=== PATIENT | female | born 1995 | race Caucasian/White ===

== ENCOUNTER 2020-04-15 07:20 | Outpatient (CLI) | payer OTHER, SELFPAY ==
[2020-04-15 08:25] LABS: Beta HCG Quantitative < 2.39 mIU/ML
[2020-04-19 05:31] LABS: Thyroglobulin 5.8 ng/mL (2.8-40.9); Thyroglobulin Antibodies <1 IU/mL (<=1)
== END 2020-04-15 07:21 | disposition home or self-care (01) ==
PROVIDERS: Visit Provider Radiology Radiation Oncology
DX: C73 Malignant neoplasm of thyroid gland (principal)
CPT/HCPCS: 36415; 84432; 84443; 84702; 86800

== ENCOUNTER 2020-04-25 10:02 | Outpatient (CLI) | payer OTHER, SELFPAY ==
[2020-04-25 11:43] LABS: Beta HCG Quantitative < 2.39 mIU/ML
[2020-04-28 03:41] LABS: Thyroglobulin 16.3 ng/mL (2.8-40.9); Thyroglobulin Antibodies <1 IU/mL (<=1)
== END 2020-04-25 10:03 | disposition home or self-care (01) ==
PROVIDERS: Visit Provider Radiology Radiation Oncology
DX: C73 Malignant neoplasm of thyroid gland (principal)
CPT/HCPCS: 36415; 84432; 84443; 84702; 86800

== ENCOUNTER 2021-08-03 14:53 | Outpatient (CLI) | payer BC, SELFPAY ==
--- NOTE | ~2021-08-03 | US_ITS ---
EXAMINATION: US thyroid EXAM DATE: 08/03/2021 15:21 INDICATION: Postsurgical Hypothyroidism TECHNIQUE: Multiple grayscale and Doppler images of the thyroidectomy bed were obtained (by a technol ogist who performed the scan) and subsequently reviewed. Individual nodules and recommendations may be reported in accordance with TI-RADS system as designated by the 2017 ACR White Paper TI-RADS commi ttee. There is no prior study for comparison. FINDINGS: The thyroidectomy bed is unremarkable, no definite focal residual tissue is identified. No regional l ymphadenopathy. IMPRESSION: Unremarkable thyroidectomy bed. Reviewed, dictated and finalized at location G. ER SCHEDULER
--- NOTE | ~2021-08-03 | XR_ITS ---
XR chest 2V DATE: 08/03/2021 15:18 INDICATION: Post surgical hypothyroidism. Malignant neoplasm of thyroid gland. TECHNIQUE: PA and lateral views COMPARISON: None FINDINGS: Pectus excavatum. Normal heart size. No hilar or mediastinal enlargement. The lungs are clear of infiltrate or consolid ation. No pleural effusion or pulmonary vascular congestion or pneumothorax. Postoperative change, left cervical area. IMPRESSION: No active cardiac pulmonary disease Pectus excavatum Postoperative changes, left cervical area Reviewed, dictated and finalized at location B. IT CHARGE AUTHORIZER
== END 2021-08-03 14:54 | disposition home or self-care (01) ==
LOC: ANHIMG 14:58
DX: E89.0 Postprocedural hypothyroidism (principal); C73 Malignant neoplasm of thyroid gland; Q67.6 Pectus excavatum; Z98.890 Other specified postprocedural states
CPT/HCPCS: 71046; 76536

== ENCOUNTER 2022-05-08 16:40 | Outpatient (CLI) | payer BC, SELFPAY ==
[2022-05-08 17:19] LABS: Basophils Absolute Auto 0.1 K/mm3 (0.0-0.1); Basophils Percent Auto 0.7 % (0.2-1.2); Eosinophils Absolute Auto 0.1 K/mm3 (0-0.3); Hematocrit 37.1 % (37.0-47.0); Hemoglobin 12.1 g/dL (12.0-15.0); Immature Granulocyte Absolute 0.03 K/mm3 (0.00-0.031); Immature Granulocyte Percent A 0.3 % (0-0.5); Lymphocytes Absolute Auto 2.67 K/mm3 (0.9-3.2); Lymphocytes Percent Auto 25.4 % (18.3-44.2); Mean Corpuscular HGB Conc 32.6 g/dl (32-36); Mean Corpuscular Hemoglobin 29.6 pg (26-34); Mean Corpuscular Volume 90.7 fl (80-100); Mean Platelet Volume 10.2 fl (7.4-10.4); Monocytes Absolute Auto 0.7 K/mm3 (0.1-0.6); Monocytes Percent Auto 6.8 % (2.6-8.5); Neutrophils Absolute Auto 6.9 K/mm3 (1.3-6.7); Neutrophils Percent Auto 65.8 % (45.5-73.1); Platelet Count Result 260 k/mm3 (150-375); Red Blood Count 4.09 M/mm3 (4.2-5.4); Red Cell Distribution Width 12.4 % (11.5-14.5); White Blood Count 10.5 K/mm3 (4.5-10.0)
[2022-05-08 18:02] LABS: Thyroid Stimulating Hormone 0.362 uIU/mL (0.465-4.680)
[2022-05-08 18:35] LABS: Hepatitis B Surface Antigen Negative (Negative); Rubella IgG Antibody 24.5 IU/ML
[2022-05-09 06:37] LABS: Rapid Plasma Reagin Non-Reactive (NonReactive)
[2022-05-13 17:44] LABS: Varicella IgG Antibody <135.00 Index (>=165.00)
[2022-05-14 08:27] LABS: CMV IgG Antibody <0.60 U/mL (<0.60)
== END 2022-05-08 16:41 | disposition home or self-care (01) ==
LOC: ANHLAB 16:42
PROVIDERS: Visit Provider Student in an Organized Health Care Education/Training Program
DX: N91.2 Amenorrhea, unspecified (principal); E03.9 Hypothyroidism, unspecified
CPT/HCPCS: 36415; 84443; 84702; 85025; 86592; 86644; 86762; 86787; 86850; 86900; 86901; 87086; 87340

== ENCOUNTER 2022-07-27 08:00 | Outpatient (RCR) | payer BC, SELFPAY ==
[2022-07-13 10:27] LABS: Free T4 Free Thyroxine 1.25 ng/mL (0.78-2.19)
[2022-07-27 10:08] LABS: Thyroid Stimulating Hormone 0.595 uIU/mL (0.465-4.680)
[2022-07-27 10:27] LABS: Free T4 Free Thyroxine 1.69 ng/mL (0.78-2.19)
== END 2022-10-11 23:59 | disposition home or self-care (01) ==
LOC: ANHLAB 08:00
DX: E89.0 Postprocedural hypothyroidism (principal)
CPT/HCPCS: 36415; 84439; 84443

== ENCOUNTER 2022-08-17 09:12 | Outpatient (CLI) | payer BC, SELFPAY ==
[2022-08-17 10:29] LABS: Thyroid Stimulating Hormone 0.139 uIU/mL (0.465-4.680)
== END 2022-08-17 09:13 | disposition home or self-care (01) ==
LOC: ANHLAB 09:14
DX: E89.0 Postprocedural hypothyroidism (principal)
CPT/HCPCS: 36415; 84443

== ENCOUNTER 2022-09-14 09:07 | Outpatient (CLI) | payer BC, SELFPAY ==
[2022-09-14 10:33] LABS: Thyroid Stimulating Hormone < 0.015 uIU/mL (0.465-4.680)
== END 2022-09-14 09:08 | disposition home or self-care (01) ==
LOC: ANHLAB 09:10
DX: E89.0 Postprocedural hypothyroidism (principal)
CPT/HCPCS: 36415; 84443

== ENCOUNTER 2022-09-26 10:06 | Outpatient (CLI) | payer BC, SELFPAY ==
[2022-09-26 11:50] LABS: Hematocrit 38.3 % (37.0-47.0); Hemoglobin 12.8 g/dL (12.0-15.0); Mean Corpuscular HGB Conc 33.4 g/dl (32-36); Mean Corpuscular Hemoglobin 30.8 pg (26-34); Mean Corpuscular Volume 92.3 fl (80-100); Mean Platelet Volume 11.1 fl (7.4-10.4); Platelet Count Result 211 k/mm3 (150-375); Red Blood Count 4.15 M/mm3 (4.2-5.4); Red Cell Distribution Width 12.8 % (11.5-14.5); White Blood Count 11.2 K/mm3 (4.5-10.0)
[2022-09-26 12:02] LABS: Glucose 1 Hour PP 50gm Dose 109 mg/dL
[2022-09-26 12:45] LABS: HIV 1/2 Ab P24 Ag Result Negative (Negative)
== END 2022-09-26 10:07 | disposition home or self-care (01) ==
LOC: ANHLAB 10:07
PROVIDERS: Visit Provider Student in an Organized Health Care Education/Training Program
DX: Z34.90 Encounter for supervision of normal pregnancy, unspecified, unspecified trimester (principal)
CPT/HCPCS: 36415; 82947; 85027; 86703; G0432

== ENCOUNTER 2022-09-28 15:13 | Outpatient (CLI) | payer BC, SELFPAY | END 2022-09-28 15:14 | disposition home or self-care (01) | DX: O99.282 Endocrine, nutritional and metabolic diseases complicating pregnancy, second trimester (principal); E89.0 Postprocedural hypothyroidism | CPT/HCPCS: 36415; 84443 ==

== ENCOUNTER 2022-10-26 09:24 | Outpatient (CLI) | payer BC, SELFPAY ==
[2022-10-26 11:12] LABS: Thyroid Stimulating Hormone 0.421 uIU/mL (0.465-4.680)
== END 2022-10-26 09:25 | disposition home or self-care (01) ==
DX: E89.0 Postprocedural hypothyroidism (principal)
CPT/HCPCS: 36415; 84443

== ENCOUNTER 2022-11-16 09:22 | Outpatient (CLI) | payer BC, SELFPAY | END 2022-11-16 09:23 | disposition home or self-care (01) | LOC: ANHLAB 09:26 | DX: I10 Essential (primary) hypertension (principal) | CPT/HCPCS: 36415; 84443 ==

== ENCOUNTER 2022-11-27 17:11 | Outpatient (CLI) | payer BC, SELFPAY ==
[2022-11-27 17:31] VITALS: BP 148/85; PULSE 100
[2022-11-27 18:01] VITALS: BP 128/87; PULSE 95
[2022-11-27 18:16] VITALS: BP 123/74; PULSE 89
[2022-11-27 18:18] LABS: Basophils Absolute Auto 0.1 K/mm3 (0.0-0.1); Basophils Percent Auto 0.5 % (0.2-1.2); Eosinophils Absolute Auto 0.1 K/mm3 (0-0.3); Eosinophils Percent Auto 0.8 % (0-4.4); Hemoglobin 12.7 g/dL (12.0-15.0); Immature Granulocyte Absolute 0.06 K/mm3 (0.00-0.031); Immature Granulocyte Percent A 0.5 % (0-0.5); Lymphocytes Percent Auto 25.5 % (18.3-44.2); Mean Corpuscular HGB Conc 33.4 g/dl (32-36); Mean Corpuscular Hemoglobin 29.8 pg (26-34); Mean Corpuscular Volume 89.2 fl (80-100); Mean Platelet Volume 12.2 fl (7.4-10.4); Monocytes Absolute Auto 0.9 K/mm3 (0.1-0.6); Monocytes Percent Auto 7.3 % (2.6-8.5); Neutrophils Absolute Auto 7.9 K/mm3 (1.3-6.7); Neutrophils Percent Auto 65.4 % (45.5-73.1); Platelet Count Result 171 k/mm3 (150-375); Red Blood Count 4.26 M/mm3 (4.2-5.4); Red Cell Distribution Width 13.9 % (11.5-14.5); White Blood Count 12.1 K/mm3 (4.5-10.0)
[2022-11-27 18:33] LABS: Appearance Urine Clear (Clear); Bilirubin Urine Negative (Negative); Blood Urine Negative (Negative); Color Urine Yellow (Yellow); Glucose Urine UA Negative (Negative); Ketones Urine Negative (Negative); Leukocyte Esterase Ur Negative LEU/UL (NEGATIVE); Nitrate Urine Negative (Negative); Protein Urine Negative (Negative); Urobilinogen Urine 0.2 mg/dL (<2.0); pH Urine 6.5 (5.0-9.0)
[2022-11-27 18:34] LABS: Add Urine Microscopic? NO
[2022-11-27 18:42] LABS: Alanine Aminotransferase 19 U/L (6-35); Albumin Level 3.7 g/dL (3.5-5.1); Alkaline Phosphatase 187 U/L (38-126); Anion Gap 6 mmol/L (8-16); Aspartate Amino Transferase 32 U/L (14-36); Bilirubin,Total 0.2 mg/dL (0.2-1.3); Blood Urea Nitrogen 14 mg/dL (7-17); Calcium 8.4 mg/dL (8.4-10.2); Carbon Dioxide 21 mmol/L (22-30); Chloride 104 mmol/L (98-107); Estimated Glomerular Filt Rate > 60; Glucose 81 mg/dL (65-110); Potassium 3.9 mmol/L (3.4-5.0); Sodium 131 mmol/L (137-145); Uric Acid 6.4 mg/dL (2.5-7.5)
[2022-11-27 19:07] LABS: Creatinine Urine 49.3 mg/dL; Total Protein Urine Random 11 mg/dL; Ur Ttl Prot Creatinine Ratio 0.22 mg/mg (0-0.20)
--- NOTE | 2022-11-27 19:12 | PC.NURSE ---
Dr Bedolla call system notified at this time of patient and they are contacting Dr Bedolla.
--- NOTE | 2022-11-27 19:15 | PC.NURSE ---
Dr Bedolla updated on BP results, lab results, and FHTs. Orders to discharge patient home at this time.
== END 2022-11-27 19:17 | disposition home or self-care (01) ==
LOC: ANHOBOP 17:17 → ANHLDR 17:21
PROVIDERS: Visit Provider Student in an Organized Health Care Education/Training Program
DX: O13.9 Gestational [pregnancy-induced] hypertension without significant proteinuria, unspecified trimester (principal); Z3A.00 Weeks of gestation of pregnancy not specified
CPT/HCPCS: 36415; 59025; 80053; 81003; 82570; 84156; 84550; 85025; 87086; 99199

== ENCOUNTER 2022-12-03 19:15 | Inpatient (IN) | payer BC, SELFPAY ==
[2022-12-03] VITALS (14 sets, daily range): BP systolic 114–140; BP diastolic 67–108; PULSE 75–107; TEMP 36.5; BMI 30.6
[2022-12-03 18:36] LABS: Basophils Absolute Auto 0.1 K/mm3 (0.0-0.1); Basophils Percent Auto 0.5 % (0.2-1.2); Eosinophils Absolute Auto 0.1 K/mm3 (0-0.3); Eosinophils Percent Auto 1.2 % (0-4.4); Hematocrit 36.2 % (37.0-47.0); Hemoglobin 12.5 g/dL (12.0-15.0); Immature Granulocyte Absolute 0.07 K/mm3 (0.00-0.031); Immature Granulocyte Percent A 0.6 % (0-0.5); Lymphocytes Percent Auto 24.7 % (18.3-44.2); Mean Corpuscular HGB Conc 34.5 g/dl (32-36); Mean Corpuscular Hemoglobin 30.3 pg (26-34); Mean Corpuscular Volume 87.9 fl (80-100); Mean Platelet Volume 11.7 fl (7.4-10.4); Monocytes Absolute Auto 0.7 K/mm3 (0.1-0.6); Monocytes Percent Auto 6.5 % (2.6-8.5); Neutrophils Absolute Auto 7.3 K/mm3 (1.3-6.7); Neutrophils Percent Auto 66.5 % (45.5-73.1); Platelet Count Result 165 k/mm3 (150-375); Red Blood Count 4.12 M/mm3 (4.2-5.4); Red Cell Distribution Width 14.1 % (11.5-14.5)
[2022-12-03 18:37] LABS: Appearance Urine Clear (Clear); Bilirubin Urine Negative (Negative); Blood Urine Negative (Negative); Color Urine Yellow (Yellow); Glucose Urine UA Negative (Negative); Ketones Urine Negative (Negative); Leukocyte Esterase Ur Negative LEU/UL (NEGATIVE); Nitrate Urine Negative (Negative); Protein Urine Negative (Negative); Specific Grav Ur 1.007 (1.001-1.035); Urobilinogen Urine 0.2 mg/dL (<2.0); pH Urine 6.5 (5.0-9.0)
[2022-12-03 18:43] LABS: Add Urine Microscopic? NO
[2022-12-03 18:46] LABS: Alanine Aminotransferase 20 U/L (6-35); Albumin Level 3.6 g/dL (3.5-5.1); Alkaline Phosphatase 190 U/L (38-126); Anion Gap 6 mmol/L (8-16); Aspartate Amino Transferase 33 U/L (14-36); Bilirubin,Total 0.2 mg/dL (0.2-1.3); Blood Urea Nitrogen 14 mg/dL (7-17); Calcium 8.8 mg/dL (8.4-10.2); Carbon Dioxide 19 mmol/L (22-30); Chloride 107 mmol/L (98-107); Estimated Glomerular Filt Rate > 60; Glucose 94 mg/dL (65-110); Potassium 3.8 mmol/L (3.4-5.0); Sodium 132 mmol/L (137-145); Uric Acid 6.7 mg/dL (2.5-7.5)
[2022-12-03 18:50] LABS: Creatinine Urine 29.6 mg/dL; Total Protein Urine Random 13 mg/dL; Ur Ttl Prot Creatinine Ratio 0.44 mg/mg (0-0.20)
--- NOTE | 2022-12-03 19:28 | PC.NURSE ---
Dr Hernández called via automobile service writer and informed of patient labs and BP results with reactive NST. Orders to admit patient for IOL with cervidil induction
--- NOTE | 2022-12-03 19:40 | LDADM ---
This patient, Yaneth Escoto, was admitted to Labor/Delivery/Recovery 103 on 12/03/22 at 19:15. Plans for labor, pain management and were discussed with patient. Patient/family oriented to hospital policies and general routines including ID bracelet, bed and alarms, visiting hours, pain management, procedures, bathroom and other care routines, personal items, smoking policy, room service/diet and guest tray routines, infant security routines, and visiting hours. Patient/Family are encouraged to report perceived risks to care and to ask questions if they do not understand what they are told or what they should do. See OBIX for further documentation.
[2022-12-03] MEDS: DINOPROSTONE 10 MG VAG INSERT VAGINAL (19:57)
[2022-12-04] VITALS (134 sets, daily range): BP systolic 74–205; BP diastolic 51–167; PULSE 61–230; RESP 18; TEMP 36.4–37; O2SAT 75–100
[2022-12-04] MEDS: LACTATED RINGERS 1,000 ML 999 ML IV CONT ×4 (02:25→11:17)
[2022-12-04] MEDS: fentaNYL CITRATE INJ (*CRX) 100 MCG/2 ML VIAL 50 MCG IV PUSH ×3 (03:02→05:36)
--- NOTE | 2022-12-04 05:45 | WPDANESEPPF ---
Anes - Initial Pre Proc Eval Procedure: Labor Epidural Date/Time: 12/04/22 05:45 Surgeon: Jaime Marroquin MD Pre Op Diagnosis: Labor pain Pre Op Diagnosis: PIH Work up Patient Data Age: 27 Gender: F Height: 1.57 m Weight: 75.9 kg Last Vital Signs Temp 36.4 C L 12/04/22 02:02 Pulse 67 12/04/22 05:00 BP 116/56 L 12/04/22 05:00 O2 Del Method Room Air 12/03/22 19:39 Allergies Allergy/AdvReac Type Severity Reaction Status Date / Time No Known Allergies Allergy Verified 12/03/22 16:41 Home Medications Medication Instructions Recorded Confirmed Type prenat.vits,tobias,nvh-wadz-hzili 1 tablet PO DAILY 07/06/22 12/03/22 History levothyroxine 125 mcg capsule 125 mcg PO DAILY 08/10/22 12/03/22 History Laboratory Tests 12/03/22 12/03/22 18:29 19:59 WBC 11.0 H K/mm3 (4.5-10.0) RBC 4.12 L M/mm3 (4.2-5.4) Hgb 12.5 g/dL (12.0-15.0) Hct 36.2 L % (37.0-47.0) MCV 87.9 fl (80-100) MCH 30.3 pg (26-34) MCHC 34.5 g/dl (32-36) RDW 14.1 % (11.5-14.5) Plt Count 165 k/mm3 (150-375) MPV 11.7 H fl (7.4-10.4) Immature Gran % (Auto) 0.6 H % (0-0.5) Neut % (Auto) 66.5 % (45.5-73.1) Lymph % (Auto) 24.7 % (18.3-44.2) [place] % (Auto) 6.5 % (2.6-8.5) Eos % (Auto) 1.2 % (0-4.4) Baso % (Auto) 0.5 % (0.2-1.2) Lymph # (Auto) 2.70 K/mm3 (0.9-3.2) [place] # (Auto) 0.7 H K/mm3 (0.1-0.6) Eos # (Auto) 0.1 K/mm3 (0-0.3) Baso # (Auto) 0.1 K/mm3 (0.0-0.1) Abs Immat Gran (auto) 0.07 H K/mm3 (0.00-0.031) Absolute Neuts (auto) 7.3 H K/mm3 (1.3-6.7) Absolute Nucleated RBC 0.0 K/mm3 (0.0-0.012) Nucleated RBC % 0.0 % (0.0-0.2) Sodium 132 L mmol/L (137-145) Potassium 3.8 mmol/L (3.4-5.0) Chloride 107 mmol/L (98-107) Carbon Dioxide 19 L mmol/L (22-30) Anion Gap 6 L mmol/L (8-16) BUN 14 mg/dL (7-17) Creatinine 0.80 mg/dL (0.7-1.0) Estim Creat Clear Calc Not Reportable Estimated GFR > 60 (59 - ) Glucose 94 mg/dL (65-110) Uric Acid 6.7 mg/dL (2.5-7.5) Calcium 8.8 mg/dL (8.4-10.2) Total Bilirubin 0.2 mg/dL (0.2-1.3) AST 33 U/L (14-36) ALT 20 U/L (6-35) Alkaline Phosphatase 190 H U/L (38-126) Total Protein 7.0 g/dL (6.3-8.2) Albumin 3.6 g/dL (3.5-5.1) Urine Color Yellow (Yellow) Urine Appearance Clear (Clear) Urine pH 6.5 (5.0-9.0) Ur Specific [place] 1.007 (1.001-1.035) Urine Protein Negative mg/dL (Negative) Urine Glucose (UA) Negative mg/dL (Negative) Urine Ketones Negative mg/dL (Negative) Ur Blood (Man) Negative (Negative) Urine Nitrate Negative (Negative) Urine Bilirubin Negative (Negative) Urine Urobilinogen 0.2 mg/dL (<2.0) Ur Leukocyte Esterase Negative HAIDER/UL (NEGATIVE) U Random Total Protein 13 mg/dL Urine Creatinine 29.6 mg/dL Protein/Creat Ratio 2 0.44 H mg/mg (0-0.20) RPR Pending Blood Type A Positive Antibody Screen Negative Patient hx anesthesia problems: none Family hx anesthesia problems: none Results Review: All pre-operative results and documents have been reviewed as part of the pre-operative evaluation. [facility] Past Medical History Medical History Thyroid cancer Surgical History Surgical History H/O thyroidectomy History of ankle surgery Family History Family History Other Breast cancer Factor 5 Leiden mutation, heterozygous Other Heart disease Social History Social History (Reviewed 11/16
[2022-12-04] MEDS: fentaNYL CITRATE INJ (*CRX) 100 MCG/2 ML VIAL IV PUSH (06:35)
[2022-12-04 07:31] LABS: Rapid Plasma Reagin Non-Reactive (NonReactive)
--- NOTE | 2022-12-04 07:34 | P.HPUP_ITS ---
History and Physical Update Update Date/Time: 12/04/22 07:34 27-year-old at 37 weeks 5 days who presents for induction of labor for preeclampsia. Patient's blood pressure had been elevated at the last 2 outpatient visits. Preeclampsia lab work revealed an elevated urine protein c reatinine ratio. also complicated by maternal hypothyroidism secondary to thyroidectomy from thyroid cancer. Patient's thyroid has been managed by Endocrinology. History and Physical has been reviewed, including an updated exam of the patient. There are NO changes in the patient's condition. Risks, benefits, and alternatives have been discussed and questions answered. Patient agrees to proceed with procedure. A/P: Admit to L&D Routine admission orders patient diagnosed with preeclampsia without severe features Mild range blood pressures on admission Will continue to monitor blood pressures. Will consider magnesium if severe range Will plan for induction of labor due to preeclampsia plan for Cervidil induction of labor Continuous external monitoring
--- NOTE | 2022-12-04 08:19 | PM.OBPNLAB ---
Pain Control Date/time seen: 12/04/22 08:19 Pain control: epidural Pelvic Exam Dilation (cm): 4 Effacement (%): 90 station: -1 Amniotic membrane status: Intact Contractions Monitor mode: External Contraction frequency: 2 Contraction pattern: Regular Status status: Category ll Assessment and Plan Assessment: induction ongoing Comments: AROM for clear fluid. Pt amy on her own, will augment as necessary
[2022-12-04] MEDS: SODIUM CHLORIDE 0.9% IV 300 ML 600 ML I-UTERINE (09:36)
[2022-12-04] MEDS: OXYTOCIN 30 UNITS/NS 500 ML 30 UNITS/500 ML BAG IV CONT (10:58)
--- NOTE | 2022-12-04 11:50 | PC.NURSE ---
Addendum entered by Abigail Ball RN 12/04/22 11:54: Encouraged mother to keep her baby [id number] if stable until the first . Reminded the parent that the weight can wait. Original Note: 0852 - Introductions were made, then consulted with patient to assess her plans for feeding her after in L&D room 103. Mother led the conversation with her?plans to feed?her infant and the?experience so far. Resources provided for inpatient and outpatient services with the [facility] bonding feeding handout. Mother voiced understanding of information and will call if there is a request for assistance.
--- NOTE | 2022-12-04 14:03 | PM.OBPRVD ---
OB - Delivery Note Procedure Procedure: Patient pushed for a spontaneous vaginal delivery. The fetus was delivered atraumatically and placed on the maternal abdomen. The cord was clamped and cut after 1 minute of life. The cord was double clamped and cut and a segment of cord was collected for cord gases. Cord blood was collected for blood type and Coomb's testing. The placenta delivered spontaneously and was noted to be intact. The perineum was inspected and there were no lacerations noted. The uterus was firm and good hemostasis was noted. The patient and fetus were stable in the delivery room. Events: Preeclampsia w/o severe features Induction method: Per Cervidil Protocol Delivery augmentation: Rupture of Membranes and Pitocin Delivery monitor: External FHT Route of delivery: Episiotomy description: None Laceration Description: None Specimen: No Quantitative Blood Loss (ml): 150 Disposition: Floor () Complications: No immediate complications Baby Date of : 12/04/22 Time of : 13:44 Weeks of gestation at delivery: 37 Infant gender: Male presentation: vertex position: Right Occiput Anterior Placenta delivery description: Spontaneous Cord Vessel Description: 3 Vessels and Nuchal Cord score one minute: 8 score five minutes: 9 AMG Delivery Billing Delivery Delivery: Delivery Charge
[2022-12-04] MEDS: OXYTOCIN 30 UNITS/NS 500 ML 30 UNITS/500 ML BAG 125 UNITS IV CONT (14:21)
[2022-12-04] MEDS: BENZOCAINE 20% AER SPR (*SP) 56 GM CAN 1 SPRAY TOPICAL (15:30)
[2022-12-04] MEDS: WITCH HAZEL 40 PADS 1 PAD TOPICAL (15:31)
[2022-12-05 04:00] VITALS: BP 119/70; PULSE 72; RESP 18; TEMP 36.4; O2SAT 98
[2022-12-05] MEDS: IBUPROFEN 600 MG TABLET PO ×2 (04:04→12:33)
[2022-12-05 04:45] LABS: Hematocrit 34.9 % (37.0-47.0); Hemoglobin 11.5 g/dL (12.0-15.0)
--- NOTE | 2022-12-05 08:10 | PM.OBPNVD ---
OB - PN: Subj Subjective Date/time seen: 12/05/22 08:10 Patient comments: no complaints, pain well controlled and tolerating diet [place] feeding status: exclusively breast feeding Narrative: patient doing well this AM. No complaints. Pain is well controlled. She reports minimal bleeding. She is ambulating and voiding without difficulty. She is tolerating PO. She denies N/V, fever, chills. OB - PN: Obj Data Labs 12/05/22 04:00 12/03/22 18:29 Labs: Laboratory Results - last 24 hr 12/05/22 04:00 Hgb 11.5 L Hct 34.9 L OB - PN A/P Plan day: 1 Plan: routine care Comments: patient doing well H/H stable pt desires infant circumcision. Risks, benefits, alternatives discussed. Maternal consent obtained. continue routine care Time Spent With Patient Time: Total time spent is greater than 50% in coordination of care (as documented) at patient's floor/unit and/or counseling patient: Time with patient: less than 15 minutes Review of Systems Review of Systems: All systems reviewed & are unremarkable except as noted in HPI and below Exam Const: General: comfortable and no acute distress Resp: Effort & Inspection: normal respiratory effort Cardio: Rate: regular rate GI: GI Palp: Yes Soft to palpation and No Tenderness to palpation present (GI) Auscultation: normal bowel sounds Other: fundus firm and below umbilicus. Psych: Affect: normal affect
[2022-12-05 08:55] VITALS: BP 117/83; PULSE 81; RESP 18; TEMP 36.7; O2SAT 97
--- NOTE | 2022-12-05 10:50 | WPDANLDPN2 ---
Anes-Prog Note L&D Date/Time: 12/05/22 10:50 Comfortable throughout: labor and delivery Neuraxial method: epidural Epidural/Spinal procedure site: clean & non-tender Neuro status: Neuro function grossly intact. Cardiovascular status: normal Respiratory status: normal Airway patency: baseline Mental status: baseline Post-Op hydration status: normal Vital Signs: Last Vital Signs Temp 36.7 C 12/05/22 08:55 Pulse 81 12/05/22 08:55 Resp 18 12/05/22 08:55 BP 117/83 12/05/22 08:55 Pulse Ox 97 12/05/22 08:55 O2 Del Method Room Air 12/05/22 04:00 Pain score (VAS): 06/26 I/O: Intake & Output 12/04/22 12/05/22 12/05/22 23:59 07:59 15:59 Intake Total 1000 Output Total 148 2300 Balance -148 -1300 Post-procedural complaints: none Patient feedback: Patient satisfied with anesthetic care.
[2022-12-05] MEDS: LEVOTHYROXINE SODIUM 125 MCG TABLET PO (11:32)
[2022-12-05 12:15] VITALS: BP 118/69; PULSE 68; RESP 16; TEMP 37.3; O2SAT 99
[2022-12-05] MEDS: MULTIVIT/MIN/PREN/FOL AC/IRON TABLET 1 TAB PO (12:33)
--- NOTE | 2022-12-05 13:04 | PM.OBDSVD ---
DS: Admitting Diagnosis Discharge Date 12/06/22 Admitting Diagnosis intrauterine at term Preeclampsia without severe features DS: Discharge Diagnosis Discharge Diagnosis (1) Supervision of high risk , unspecified, third trimester: Code(s): O09.93 - Supervision of high risk , unspecified, third trimester Status: Acute (2) Preeclampsia: Code(s): O14.90 - Unspecified pre-eclampsia, unspecified trimester Status: Acute OB - DS: Summary OB Procedures : None OB Procedures Intrapartum: Spontaneous Vag Delivery OB Procedures: : None Peripartum Data Infant Delivery Method: Natural Vaginal Laceration Description: None complications: none Status at Discharge Functional status at discharge: independent ambulation Overall status at discharge: patient is back to baseline Time Spent with Patient Time attestation: Total time spent providing and/or coordinating discharge services: Time spent: Less than 30 minutes Exam Const: General: comfortable and no acute distress Resp: Effort & Inspection: normal respiratory effort Auscultation: clear to auscultation bilaterally Cardio: Rate: regular rate GI: GI Palp: Yes Soft to palpation Auscultation: normal bowel sounds Other: Fundus firm below umbilicus Psych: Appearance: grossly normal Mental Status: mental status grossly normal Affect: normal affect DS: Data Data Completed and Pending Pending studies at discharge: Pending at discharge 12/04/22 14:28 Surgical [PTH] Routine Labs on day of discharge: Labs from last 24 hours 12/05/22 04:00 Hgb 11.5 L Hct 34.9 L Discharge Plan Discharge Attending physician on discharge: Jaime Marroquin Discharging Clinician: Jaime Marroquin Patient Disposition: Home, Self-Care Activity: as tolerated and pelvic rest Diet: regular Discharge Instructions: Education: Mom and Baby Guide Given to: Mother Follow-Up: Call your delivering provider's office for an appointment to be seen in: 1 Weeks Mom and baby [facility] the follow-up appointment. Appointment Date/Time: December 07, 2022 at 11:00 am What to expect at your follow-up visit: Blood Pressure Check Physical Assessment Call [phone] if you are unable to keep your appointment time. BREAST CARE: * Wear a snug supportive bra. * For engorgement discomfort: Breast Feeding: * Apply warm moist washcloths * Express milk as needed to relieve engorgement * Wear loose clothing * For sore nipples: * Identify correct latch-on * Apply warm moist washcloths before and after nursing * Air dry nipples after nursing * May apply Lansinoh cream to nipples EPISIOTOMY/PERINEAL CARE: * Until bleeding stops, use your carlos alberto bottle after urinating * Change your pad frequently throughout the day * You may take sitz baths several times a day (fill your bathtub with warm water and soak for 20 minutes.) Do NOT bathe in the water * No tub baths until seen by your physician - You may shower ACTIVITY: * Rest as much as possible. * Do not exercise or lift anything heavier than your baby (such as laundry or other children.) * Avoid stairs or driving as much as possible. * Do not put anything into the vagina. No douching, tampons, or sexual activity until seen by physician. NOTIFY PHYSICIAN IF YOU HAVE ANY QUESTIONS OR IF ANY OF THE FOLLOWING SYMPTOMS OCCUR: * If your vaginal area becomes red, swollen, or more painful than what you have experienced in the hospital. * If your vaginal bleeding becomes foul smelling. * If your vaginal bleeding becomes more heavy than a period or if your bleeding changes from pink to bright red. However, you may pass an occasional walnut-sized clot once or twice for the first week . * If you experience a sharp, shooti
[2022-12-05 16:45] VITALS: BP 144/95; PULSE 88; RESP 16; TEMP 36.2; O2SAT 99
[2022-12-05 19:30] VITALS: BP 130/91; PULSE 99; RESP 16; TEMP 36.6
[2022-12-06 05:30] VITALS: BP 122/77; PULSE 63; RESP 16; TEMP 36.8
[2022-12-06 07:40] VITALS: BP 124/86; PULSE 77; RESP 18; TEMP 36.7; O2SAT 97
[2022-12-06] MEDS: IBUPROFEN 600 MG TABLET PO (08:30)
[2022-12-06] MEDS: WITCH HAZEL 40 PADS 1 PAD TOPICAL (08:30)
[2022-12-06] MEDS: LANOLIN (LANSINOH) 7.5 GM CREAM 1 APPLIC TOPICAL (08:30)
[2022-12-06] MEDS: BENZOCAINE 20% AER SPR (*SP) 56 GM CAN 1 SPRAY TOPICAL (08:30)
[2022-12-06] MEDS: DOCUSATE SODIUM 100 MG CAPSULE PO (08:30)
--- NOTE | 2022-12-06 10:44 | PC.NURSE ---
[id number] Introductions were made and Primary RN is going over discharge information. Discussed flange fitting, comfort, and care with pumping. Mother is pumping without pain. Resources provided for additional assistance if needed for outpatient care. Mother voiced understanding of the information.
[2022-12-07 11:20] VITALS: BP 138/95; PULSE 79; RESP 18; TEMP 37.1; O2SAT 100
== END 2022-12-06 10:55 | disposition home or self-care (01) | DRG 807 ==
LOC: ANHOBOP 19:32 → ANHLDR 19:32 → ANHOB2 12-04 18:56
PROVIDERS: Admitting Provider Obstetrics & Gynecology; Visit Provider Student in an Organized Health Care Education/Training Program
DX: O14.94 Unspecified pre-eclampsia, complicating childbirth (principal); Z37.0 Single live birth; Z3A.37 37 weeks gestation of pregnancy; O69.81X0 Labor and delivery complicated by cord around neck, without compression, not applicable or unspecified
CPT/HCPCS: 36415; 59025; 80053; 81003; 82570; 84156; 84550; 85014; 85018; 85025; 86592; 86850; 86900; 86901; 87086; 88307; A9270; J2590; J2795; J3010; J7030; J7120

== ENCOUNTER 2023-01-15 09:56 | Outpatient (CLI) | payer BC, SELFPAY ==
[2023-01-15 11:17] LABS: Thyroid Stimulating Hormone < 0.015 uIU/mL (0.465-4.680)
[2023-01-15 11:31] LABS: Free T4 Free Thyroxine 2.51 ng/mL (0.78-2.19)
[2023-01-19 06:29] LABS: Thyroglobulin 1.6 ng/mL (2.8-40.9); Thyroglobulin Antibodies <1 IU/mL (<=1)
== END 2023-01-15 09:57 | disposition home or self-care (01) ==
DX: E89.0 Postprocedural hypothyroidism (principal); C73 Malignant neoplasm of thyroid gland
CPT/HCPCS: 36415; 84432; 84439; 84443; 86800

== ENCOUNTER 2023-03-20 10:12 | Outpatient (CLI) | payer BC, SELFPAY ==
[2023-03-20 11:37] LABS: Thyroid Stimulating Hormone 0.055 uIU/mL (0.465-4.680)
[2023-03-23 04:56] LABS: Thyroglobulin 0.7 ng/mL (2.8-40.9); Thyroglobulin Antibodies <1 IU/mL (<=1)
== END 2023-03-20 10:13 | disposition home or self-care (01) ==
DX: E89.0 Postprocedural hypothyroidism (principal)
CPT/HCPCS: 36415; 84432; 84443; 86800

== ENCOUNTER → 2023-03-25 15:47 | Outpatient (CLI) | payer BC, SELFPAY ==
--- NOTE | ~2023-03-25 | US_ITS ---
EXAMINATION: US thyroid DATE: 03/25/2023 16:05 INDICATION: Postsurgical hypothyroidism. TECHNIQUE: Multiple ultrasound images of the thyroid were obtained. COMPARISON: None. FINDINGS: Thyroid gland surgically absent. No solid or cystic mass present in the thyroid bed. IMPRESSION: Status post thyroidectomy. Unremarkable thyroidectomy bed. Reviewed, dictated and finalized at location K.
== END ==
PROVIDERS: PCP Internal Medicine Endocrinology, Diabetes & Metabolism
DX: C73 Malignant neoplasm of thyroid gland (principal); E89.0 Postprocedural hypothyroidism
CPT/HCPCS: 76536

== ENCOUNTER 2024-02-28 08:03 | Outpatient (CLI) | payer BC, OTHER, SELFPAY ==
[2024-02-28 10:03] LABS: Free T4 Free Thyroxine 1.07 ng/mL (0.78-2.19)
== END 2024-02-28 08:04 | disposition home or self-care (01) ==
LOC: ANHLAB 08:09
PROVIDERS: PCP Internal Medicine Endocrinology, Diabetes & Metabolism; Visit Provider Internal Medicine Endocrinology, Diabetes & Metabolism
DX: E89.0 Postprocedural hypothyroidism (principal); C73 Malignant neoplasm of thyroid gland
CPT/HCPCS: 36415; 84439; 84443

== ENCOUNTER 2024-03-11 12:10 | Outpatient (CLI) | payer OTHER, BC, SELFPAY ==
[2024-03-11 12:38] LABS: Basophils Absolute Auto 0.1 K/mm3 (0.0-0.1); Basophils Percent Auto 0.6 % (0.2-1.2); Eosinophils Absolute Auto 0.1 K/mm3 (0-0.3); Eosinophils Percent Auto 0.6 % (0-4.4); Hematocrit 36.6 % (37.0-47.0); Hemoglobin 12.2 g/dL (12.0-15.0); Immature Granulocyte Absolute 0.02 K/mm3 (0.00-0.031); Immature Granulocyte Percent A 0.2 % (0-0.5); Lymphocytes Absolute Auto 2.76 K/mm3 (0.9-3.2); Lymphocytes Percent Auto 32.5 % (18.3-44.2); Mean Corpuscular HGB Conc 33.3 g/dl (32-36); Mean Corpuscular Hemoglobin 29.8 pg (26-34); Mean Corpuscular Volume 89.5 fl (80-100); Mean Platelet Volume 9.7 fl (7.4-10.4); Monocytes Absolute Auto 0.5 K/mm3 (0.1-0.6); Monocytes Percent Auto 6.4 % (2.6-8.5); Neutrophils Absolute Auto 5.1 K/mm3 (1.3-6.7); Neutrophils Percent Auto 59.7 % (45.5-73.1); Platelet Count Result 211 k/mm3 (150-375); Red Blood Count 4.09 M/mm3 (4.2-5.4); Red Cell Distribution Width 13.4 % (11.5-14.5); White Blood Count 8.5 K/mm3 (4.5-10.0)
[2024-03-11 13:28] LABS: HIV 1/2 Ab P24 Ag Result Negative (Negative)
[2024-03-11 13:48] LABS: Hepatitis B Surface Antigen Negative (Negative); Rubella IgG Antibody 23.2 IU/ML
[2024-03-11 18:22] LABS: Rapid Plasma Reagin Non-Reactive (NonReactive)
[2024-03-17 14:38] LABS: Varicella IgG Antibody <1.00 S/CO
== END 2024-03-11 12:11 | disposition home or self-care (01) ==
LOC: ANHLAB 12:13
PROVIDERS: PCP Internal Medicine Endocrinology, Diabetes & Metabolism; Visit Provider Student in an Organized Health Care Education/Training Program
DX: N94.89 Other specified conditions associated with female genital organs and menstrual cycle (principal)
CPT/HCPCS: 36415; 84702; 85025; 86592; 86644; 86703; 86747; 86762; 86787; 86850; 86900; 86901; 87086; 87340; G0432

== ENCOUNTER 2024-04-03 00:37 | Day surgery (SDC) | payer OTHER, BC, SELFPAY ==
[2024-04-02 10:57] VITALS: BMI 24.5
--- NOTE | 2024-04-02 11:03 | PC.NURSE ---
Report to the Outpatient Waiting Room, entrance under the green pavilion located off [facility], at time _1100am on date __04/03/24 . Planned Procedure Time: __13:00pm .? Time changes happen often and if your time is changed the preop area will call you the afternoon before. - You and your visitor will be asked to self-screen and do not enter if you have any COVID symptoms. Please call surgeon if you need to reschedule. - A mask is optional within the hospital at this time. Patients may have clear liquids (water, carbonated beverages, clear teas, apple juice) until 3 hours prior to surgery with a maximum of 20 ounces. - No food from midnight until time of surgery and no smoking (1000am) Take only the following medications with a SIP of water on the morning of surgery: __Levothyroxine DO NOT STOP ANY OF YOUR OTHER PRESCRIPTION MEDICATIONS PRIOR TO SURGERY EXCEPT THE FOLLOWING Medications to discontinue per physician Vitamins Date to take last dose 04/02/24 Please no make-up, nail dominican, hairspray, perfume, deodorant, or body powder the day of surgery.? No jewelry (including any body piercings) or valuables the day of surgery, leave them at home.? Please take a shower or bath the night before, or the morning of, surgery with an antibacterial soap.? Wear comfortable, loose fitting clothing.? - Jewelry must be removed prior to entering the operating room.? Rings and piercings that are not removed may be cut off. - The hospital will not accept responsibility for valuables.? - Please leave all valuables, including medications, at home the day of surgery. If you are going home after surgery, a licensed class a regional truck driver must drive you home.? - NO public transportation without another adult if you receive anesthesia. - We recommend that an adult stay with you for 24 hours following discharge. - We also recommend that you do not drive, make important decision, drink alcoholic beverages, or take any drugs that were not prescribed by your health care provider for at least 24 hours after your discharge time. Follow any additional instructions given to you from your surgeon. Telephone instructions given to ___patient and asked if any additional questions and then verbalized understanding. Patient advised to call surgeon office or pre surgery nurse liaison [phone] if any additional questions.
--- NOTE | 2024-04-03 07:49 | PM.IMHP ---
H&P: HPI History of Present Illness Date/Time: 04/03/24 07:49 Chief Complaint: missed Narrative: 28-year-old 011 who presents for suction D&C for management of missed . Patient had viability scan in the office with embryo measuring 8 weeks 6 days with no heart tones. Patient denies any vaginal bleeding or pain. Patient requested surgical management. Review of Systems Cardiovascular: Cardiovascular: Denies chest pain, Denies leg edema, Denies palpitations, Denies dyspnea and Denies dyspnea on exertion Respiratory: Respiratory: Denies cough, Denies dyspnea and Denies dyspnea on exertion Gastrointestinal: Gastrointestinal: Denies abdominal pain, Denies constipation, Denies diarrhea, Denies nausea and Denies vomiting Genitourinary: Genitourinary: Denies hematuria, Denies urinary frequency, Denies dysuria, Denies pelvic pain, Denies urinary incontinence and Denies vaginal discharge Neurologic: Reports system reviewed and no additional complaints, except as documented Psychiatric: Psychiatric: Reports no additional psychiatric complaints Endocrine: Endocrine: Denies palpitations PMFSH Past Medical History Medical History (Updated 04/03/24 @ 07:51 by Jaime Marroquin MD) Encounter for initial insertion of intrauterine contraceptive device Encounter for removal of intrauterine contraceptive device Suppression of menses Thyroid cancer Surgical History Surgical History H/O gynecological procedure Mirena IUD insertion 01/17/23 Mirena IUD removal 12/24/23 H/O thyroidectomy History of ankle surgery Family History Family History Other Breast cancer Factor 5 Leiden mutation, heterozygous Other Heart disease Social History Social History Smoking status: Never smoker Alcohol intake: current Alcohol use details: socially Substance use: never Substance use type: does not use Lack of Transportation: No Lack of Food: Never True Current Housing: I Have Housing Concerned About Future Housing: No Difficulty Paying Gas/Electric Bills: No Difficulty Paying for Meds: No Currently Unemployed: No Education: Associate Degree Difficulty w/ Childcare or Family Care: No Living arrangements: with family Additional living arrangements comments: Occupation/Education: occupation 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 Gender identity (if verbalized by the patient): Female Sexual Orientation (if Verbalized by the Patient): Straight or Heterosexual Spiritual care concerns: No Meds Home Medications and Allergies Home Medications Medication Instructions Recorded Confirmed Type prenat.vits,tobias,ufh-qwdz-jjmpt 1 tablet PO DAILY 07/06/22 04/02/24 History levothyroxine 125 mcg capsule 125 mcg PO DAILY 08/10/22 04/02/24 History Allergies Allergy/AdvReac Type Severity Reaction Status Date / Time No Known Allergies Allergy Verified 04/02/24 10:55 Exam Const: General: no acute distress Eyes: EOM: EOMs intact bilaterally Neck: Neck: supple Thyroid: thyroid normal Chest: Breast/axilla inspection: normal inspection of the breasts Breast/axilla palpation: normal palpation of the breasts, normal palpation of the axillae and no axillary lymphadenopathy Resp: Effort & Inspection: normal respiratory effort Auscultation: clear to auscultation bilaterally Cardio: Rate: regular rate Rhythm: regular rhythm GI: Inspection: non-distended GI Palp: Yes Soft to palpation, No Tenderness to palpation present (GI) and No Guarding due to palpation present (GI) Auscultation: normal bowel sounds : General: No bladder normal to palpation External Female Exam: normal external appearance Speculum Exam - Vagina: normal vaginal discharge and No vaginal bleeding Speculum Exam - C
[2024-04-03 11:30] VITALS: BP 114/70; PULSE 90; RESP 16; TEMP 36.9; O2SAT 100
--- NOTE | 2024-04-03 11:34 | WPDHPUPDATE1 ---
History and Physical Update Update Date/Time: 04/03/24 11:34 History and Physical has been reviewed, including an updated exam of the patient. There are NO changes in the patient's condition. Risks, benefits, and alternatives have been discussed and questions answered. Patient agrees to proceed with procedure.
[2024-04-03] MEDS: ACETAMINOPHEN 500 MG TABLET 1000 MG PO (11:48)
[2024-04-03] MEDS: LACTATED RINGERS 1,000 ML 30 ML IV CONT (11:49)
[2024-04-03 11:51] VITALS: BMI 25.2
--- NOTE | 2024-04-03 12:40 | P.PNAN_ITS ---
Anes - Initial Pre Proc Eval Procedure: Operation Date: 04/03/24 13:00 Proposed Procedures p Suction Dilatation and Curettage - Jaime Marroquin MD Date/Time: 04/03/24 12:40 Surgeon: Jaime Marroquin MD Pre Op Diagnosis: missed AB Patient Data Age: 28 Gender: F Height: 1.57 m Weight: 62.5 kg Allergies Allergy/AdvReac Type Severity Reaction Status Date / Time No Known Allergies Allergy Verified 04/02/24 10:55 Home Medications Medication Instructions Recorded Confirmed Type prenat.vits,tobias,cif-qpnu-hcsyw 1 tablet PO DAILY 07/06/22 04/02/24 History levothyroxine 125 mcg capsule 125 mcg PO DAILY 08/10/22 04/03/24 History Patient hx anesthesia problems: none Family hx anesthesia problems: none Results Review: All pre-operative results and documents have been reviewed as part of the pre- operative evaluation. [facility] Past Medical History Medical History (Updated 04/03/24 @ 07:51 by Jaime Marroquin MD) Encounter for initial insertion of intrauterine contraceptive device Encounter for removal of intrauterine contraceptive device Suppression of menses Thyroid cancer Surgical History Surgical History H/O gynecological procedure Mirena IUD insertion 01/17/23 Mirena IUD removal 12/24/23 H/O thyroidectomy History of ankle surgery Family History Family History Other Breast cancer Factor 5 Leiden mutation, heterozygous Other Heart disease Social History Social History Smoking status: Never smoker Alcohol intake: current Alcohol use details: socially Substance use: never Substance use type: does not use Lack of Transportation: No Lack of Food: Never True Current Housing: I Have Housing Concerned About Future Housing: No Difficulty Paying Gas/Electric Bills: No Difficulty Paying for Meds: No Currently Unemployed: No Education: Associate Degree Difficulty w/ Childcare or Family Care: No Living arrangements: with family Additional living arrangements comments: Occupation/Education: occupation 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 Gender identity (if verbalized by the patient): Female Sexual Orientation (if Verbalized by the Patient): Straight or Heterosexual Spiritual care concerns: No Anes - Eval Final PreProcedure Day of Procedure 04/03/24 12:40 Patient weight: normal Heart: regular rate and rhythm Lungs: clear to auscultation Airway: Mallampati scale class II Neurological: alert and oriented Last oral intake: >/= 8 hours ASA classification: II Emergent: no Anesthetic plan: proceed Anesthesia type and monitoring: general GIVS and standard monitoring Results Review: All pre-operative results and documents have been reviewed as part of the pre- operative evaluation. Informed Consent: The patient's anesthetic plan and its attendant risks and benefits were dis cussed with the patient/family/POA. Questions were solicited and answers provided to the satisfaction of the patient/family/POA.
[2024-04-03] MEDS: LIDOCAINE HCL 1% LOCAL INJ 10 ML VIAL INFILTRATE (12:44)
[2024-04-03] MEDS: DOXYCYCLINE 100 MG/NS 100 ML 100 MG/100 ML BAG IVPB (12:44)
--- NOTE | 2024-04-03 13:11 | W.PM.PROC2 ---
Procedure Note - Detailed Date of Procedure 04/03/24 Pre-op Diagnosis missed AB Post-op Diagnosis Same Procedure Performed Suction Dilation & curettage Surgeon Jaime Marroquin MD Anesthesia General Indications spontaneous missed on pelvic US Findings intrauterine products of conception Description of Procedure The patient was taken to the operating room after a missed had been noted on on transvaginal ultrasound. The risks, benefits and alternatives of the procedure were reviewed with the patient and informed consent was obtained. The patient was taken to the OR and anesthesia was noted to be adequate. The patient was placed in the dorsolithotomy position. Pelvic exam was performed with findings noted above. The patient was prepped and draped in the usual sterile fashion. Sterile speculum was placed in the vagina and the cervix was grasped with a tenaculum. The cervix was dilated further to allow for passage of a 8 mm suction curette. The 8 mm suction curette was gently advanced to the fundus, suction was activated, and the tip was rotated while being withdrawn to clear the uterus of products. This suction process was repeated 5 additional times due to the quantity of material in the uterus. The sharp curette was introduced and advanced to the fundus to remove any remaining products. The suction curette was reintroduced one final time to ensure all products had been removed. The entire procedure was performed under direct bedside US visualization. A good endometrial strip was noted. The tenaculum was removed. Good hemostasis was noted. Instrument, sponge, and sharp counts were correct. Patient tolerated the procedure well and was taken to the recovery room in stable condition. Estimated Blood Loss 50 Drains No Packing No Pathology Yes (products of conception) Complications No immediate complications Condition Stable Disposition PACU [facility] Billing Surgery - Charge Forward: Surgery Billing
[2024-04-03 13:19] VITALS: BP 96/53; PULSE 81; RESP 13; O2SAT 100
[2024-04-03 13:45] VITALS: BP 95/65; PULSE 86; RESP 13; O2SAT 100
[2024-04-03] MEDS: DOXYCYCLINE HYCLATE 100 MG TABLET PO (14:01)
== END 2024-04-03 14:08 | disposition home or self-care (01) ==
PROVIDERS: PCP Internal Medicine Endocrinology, Diabetes & Metabolism; Visit Provider Student in an Organized Health Care Education/Training Program
PROC: (CPT 59820; principal; 2024-04-03 13:00)
DX: O02.1 Missed abortion (principal); Z98.890 Other specified postprocedural states; Z85.850 Personal history of malignant neoplasm of thyroid; Z80.3 Family history of malignant neoplasm of breast; Z82.49 Family history of ischemic heart disease and other diseases of the circulatory system
CPT/HCPCS: 59820; 88305; A9270; J1100; J2003; J2250; J2405; J2704; J3010; J7120

== ENCOUNTER 2024-07-27 15:36 | Outpatient (CLI) | payer OTHER, BC, SELFPAY ==
--- OUTSIDE RECORDS SUMMARY | 2024-07-27 15:40 | XMS_ITS ---
Author Organization [facility] Address [address] [facility] [address] [place] [address] Care Team Providers Care Environmental Health And Safety Leader Name Role Phone MODESTO SHIELA Primary Care Provider Farhan Hare Unavailable [phone] REASON FOR VISIT Encounters Encounter Location Date Provider Diagnosis [facility] [address] [place] [address] 07/26/2024 Farhan Emery Plan Of Treatment No Information Progress Notes * Yaneth SPICER NDOB:[birth year] (28 yo F)Acc No.[id number]:07/26/2024 Patient: Sarita Yaneth GRACE :1995 A ge:28 Y S ex:Female Address:[address] [facility] [address] * * Date:
--- OUTSIDE RECORDS SUMMARY | 2024-07-27 15:40 | XMS_ITS | Patient Health Record ---
Author Organization [facility]esity Med Address [address] [facility] [address] [place] [address] Care Team Providers Care Pathology Laboratory Aides Teacher Name Role Phone CECILSHIELA TAYLOR Primary Care Provider Unavailab radha Farhan Emery Unavailable [phone] Allergies No Known Allergies Results Component Value Reference Range Notes TSH Reviewed date:03/02/2024 01:58:03 PM Interpretation:Normal Performing Lab: Notes/Report: Normal TSH 1.790 T4, FREE Reviewed date:03/02/2024 01:57:55 PM Interpretation:Normal Performing Lab: Notes/Report: Normal T4,Free(Direct) 1.07 Reason For Referral No Information Medications Medication SIG (Take, Route, Frequency, Duration) Notes Start Date End Date Status Levothyroxine Sodium 125 MCG 1 tablet in the morning on an empty stomach orally once a day Active Social History Tobacco Use: Social History Observation Description Date Details (start date - stop date) Never Smoker NA - NA Tobacco Control (Standard) Question Answer Notes Tobacco use: Nonsmoker Problems Problem Type SNOMED Code ICD Code Onset Dates Problem Status W/U Status Risk Notes Problem Malignant tumor of thyroid gland (126158528) Malignant neoplasm of thyroid gland (C73) Active confirmed Problem Postsurgical hypothyroidism (17538133) Postsurgical hypothyroidism (E89.0) Active confirmed Vital Signs Blood pressure diastolic 66 mm Hg 03/20/2024 Height 62 in 03/20/2024 Blood pressure systolic 112 mm Hg 03/20/2024 Weight 136.4 lbs 03/20/2024 BMI 24.95 kg/m2 03/20/2024 Encounters Encounter Location Date Provider Diagnosis [facility] [address] [place] [address] 03/20/2024 Farhan Emery Postsurgical hypothyroidism E89.0 and Malignant neoplasm of thyroid gland C73 [place] [address] [place] [address] 07/26/2024 [place] [address] [place] [address] 02/26/2024 [place] [address] [place] [address] 03/02/2024 Farhan Emery Postsurgical hypothyroidism E89.0 [place] [address] [place] [address] 04/13/2024 Farhan Emery Assessments Encounter Date Diagnosis (ICD Code) Assessment Notes Treatment Notes Treatment Clinical Notes Section Notes 03/02/2024 Postsurgical hypothyroidism (ICD-10 - E89.0) 03/20/2024 Postsurgical hypothyroidism (ICD-10 - E89.0) Old records reviewed THyroidectomy Jan 2018. Jan 2018: Start LT4 100 mcg WIll schedule BAKER Rx based on pathology. Plannng to do in [place]. 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, vascular invasion, pT1b, Classic Variant 04/2018 BAKER RX, Apr 2019, Apr 2020 with in [facility] May 2018: Thyroglobulin < 0.7, Ab wnl Jun 2019:Thyroglobuli n 0.2 unstimulated Mar 2020: Thyroglobulin 5.8 stimulated level (with high TSH) at [facility], [place], PT received third BAKER Rx TSH goal < 0.1 till Apr: Patient 12 weeks post , stopped breast feeding 6 weeks ago Mar: 9 weeks now Plan Of Treatment Pending Test Test Name Order Date TSH 03/20/2024 TSH 07/27/2024 TSH 10/26/2022 Thyroglobulin Quantitative and Antibody 03/20/2024 Thyroglobulin Quantitative and Antibody 05/21/2018 T4, FREE 03/20/2024 Insurance Providers Payer Name Payer Address Payer Phone Subscriber Number Group Number Insured Name Patient Relationship to Insured Coverage Start Date Coverage End Date [facility] [address] [place] [address] [id number] MERE BERGER Child - Insured does not have Financial Responsibility (includes legally adopted child) Medical (General) History Medical History History ICD Code Papillary Thyroid Cancer Jan 2018, S/p T otal THyroidectomy Thyroid Disease Surgical History Surgery Date(Month/Year) Thyroidectomy-Total 01/31/18 Dissection neck-central neck dissection 01/31/18 Excision Cyst-Thyroglossal Duct 01/31/18 Hospitalization History Reason Date(Month/Year) child 12/04/2022 Thyroidectomy-Total, Excision Cyst-Thyro glossal Duct 02/01
--- OUTSIDE RECORDS SUMMARY | 2024-07-27 15:41 | XMS_ITS ---
Author Organization [facility]esity Med Address [address] [facility] [address] [place] [address] Care Team Providers Care Hand Mexican Food Maker Name Role Phone MODESTOJOSSYSHIELA Primary Care Provider Farhan Hare Unavailable [phone] REASON FOR VISIT Miscarriage Encounters Encounter Location Date Provider Diagnosis [facility] [address] [place] [address] 04/13/2024 Farhan Emery Plan Of Treatment No Information Progress Notes * Yaneth SPICER NDOB:[birth year] (28 yo F)Acc No.[id number]:04/13/2024 Patient: Sarita GRACE Yaneth Louis :1995 A ge:28 Y S ex:Female Address:[address] [facility] [address] * true * Date: Generated for Printi ng/Faxing/eTransmitting on: 0 07/27/2024 03:40 PM 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
--- OUTSIDE RECORDS SUMMARY | 2024-07-27 15:41 | XMS_ITS ---
Author Organization [facility] Address [address] [facility] [address] [place] [address] Care Team Providers Care Auto Salvage Worker Name Role Phone CECILCLAUDIA SHIELA Primary Care Provider Farhan Hare Unavailable [phone] Allergies No Known Allergies REASON FOR VISIT HYpothyroidism Medications Medication SIG (Take, Route, Frequency, Duration) Notes Start Date End Date Status Levothyroxine Sodium 125 MCG 1 tablet in the morning on an empty stomach orally once a day Active Social History Tobacco Use: Social History Observation Description Date Details (start date - stop date) Never Smoker NA - NA Tobacco Control (Standard) Question Answer Notes Tobacco use: Nonsmoker Vital Signs Weight 136.4 lbs 03/20/2024 BMI 24.95 kg/m2 03/20/2024 Height 62 in 03/20/2024 Blood pressure systolic 112 mm Hg 03/20/20 24 Blood pressure diastolic 66 mm Hg 024 Encounters Encounter Location Date Provider Diagnosis [place] [address] [place] [address] 03/20/2024 Farhan Emery Postsurgical hypothyroidism E89.0 and Malignant neoplasm of thyroid gland C73 Assessments Encounter Date Diagnosis (ICD Code) Assessment Notes Treatment Notes Treatment Clinical Notes Section Notes 03/20/2024 Postsurgical hypothyroidism (ICD-10 - E89.0) Old records reviewed THyroidectomy Jan 2018. Jan 2018: Start LT4 100 mcg WIll schedule BAKER Rx based on pathology. Plannng to do in [place]. 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 May 2018: Thyroglobulin < 0.7, Ab wnl Jun 2019:Thyroglobuli n 0.2 unstimulated Mar 2020: Thyroglobulin 5.8 stimulated level (with high TSH) at [facility], So, PT received third BAKER Rx TSH goal < 0.1 till Apr: Patient 12 weeks post , stopped breast feeding 6 weeks ago Mar: 9 weeks now Plan Of Treatment Medication Medication Name Sig Start Date Stop Date Notes Levothyroxine Sodium 125 MCG 1 tablet in the morning on an empty stomach orally once a day Pending Test Test Name Order Date TSH 03/20/2024 Thyroglobulin Quantitative and Antibody 03/20/2024 T4, FREE 03/20/2024 Next Appt Details Follow Up: 1 Year, Reason: l abs in 3 weeks Progress Notes * Yaneth SPICER NDOB:[birth year] (28 yo F)Acc No.[id number]:03/20/2024 Patient: Yaneth DENNY Missy Provider: Munira Emery MD :1995 A ge:28 Y S ex:Female Date:03/20/2024 Address:[address] [place] [address] , [place] [id number] Pcp:SHIELA SALVADOR Subjective: * Chief Complaints: * H Ypothyroidism * HPI: I nterim History: Denies : Tests/Studies:. Denies : Consultations. Denies : Surgery. Denies : Hospitalizations. Denies : Emergency Department visits. Denies : Medication changes. Denies : History since last visit. Denies : Changes in PMH S margi Jul 2022. H ypothyroidism: c/o Duration A 2017. Patient had a thyroid nodule, biopsy showed Atypical Papillary thyroid cancer and so thyroidectomy was done.. c /o History P ostsurgical. Denies : Labs. Denies : Family history of thyrodi disease. Denies : Rx. Denies : Antibodies. Denies : Amiodarone, [place]. Denies : tiredness,sleepiness. Denies : weight gain. Denies : cold intolerance. Denies : hoarseness. Denies : neck swelling. Denies : aches, pains, muscle stiffness. Denies : depression. Denies : psychosis. Denies : constipation. Denies : menstrual irregularities. Denies : thyroid problems with . T hyroid cancer: c/o Thyroidectomy . c /o Ablation N ov 2017, Apr 2019, Apr 2020. c /o WHole Body Scan N ov 2017, Apr 2019 , Apr 2020. T hyroid Cancer Prognosis: c/o Age L ess than 40. c /o Histology P apillary Cancer, 1.7 cm. c /o Intrathyroidal invasion V ascular invasion present. c /o Thyroglobulin levels p T1b. Denies : Extrathyroidal invasion. Denies : Multicentricity. Denies : Lymph node metastasis. Tumor Size 1 .7 cm, classic variant. * ROS: R OS: As in HPI. All other systems negative (see attached history form in progress notes) y es. C ONSTITUTIONAL: Fever n o. C hills n o. N ight Sweats n o.?Weight Loss n o. W eight Gain n o. L oss of Appetite n o. F atigue n o. C ARDIOLOGY: Irregular Heart Beat n o. C hest Pain n o. S hortness of Breath n o. P alpitations n o. D izziness n o. L eg Edema n o.?Fatigue n o. E NDOCRINOLOGY: Excessive thirst n o. W eight Loss n o. W eight Gain n o. F atigue n o. C old Intolerance n o. P alpitations n o. ? E NT: Nose Bleed n o. S ore Throat n o. H earing Loss?no. D izziness n o. G ASTROENTEROLOGY: Nausea n o. V omiting n o. D iarrhea n o.?Appetite Change n o. M USCULOSKELETAL: Muscle Aches n o. J oint Pain n o. J oint Stiffness n o. J oint Swelling n o. B ack Pain n o. n o F racture. N EUROLOGY: Paralysis n o. T ingling/Numbness n o. S eizures n o. P SYCHOLOGY: Nervousness n o. D epression n o. A nxiety n o. R ESPIRATORY: Shortness of Breath n o. P ersistent Cough n o.?Chest Pain n o. * Medical History: * Surgical History: T hyroidectomy-Total 01/31/18Dissection neck-central neck dissection 01/31/18Excision Cyst-Thyroglossal Duct 01/31/18 * Hospitalization/Major Diagno stic Procedure: T hyroidectomy-Total, Excision Cyst-Thyroglossal Duct 02/01child 12/04/2022 * Family History: F ather: alive, high blood pressure, Hypercholesterolemia. M other: alive. P aternal Grand Mother: , cancer. 2 brother(s) - healthy. 1 son(s) - healthy. . * Social History: D ONOT USE this Use: N one A re you a: n onsmoker A Tobacco USe: T obacco Control (Standard) T obacco use: N onsmoker * Medications: T akingLevothyroxine Sodium 125 MCG Tablet 1 tablet in the morning on an empty stomach orally once a day Medication List reviewed and reconciled with the patientTaking Levothyroxine Sodium 125 MCG Tablet 1 tablet in the morning on an empty stomach orally once a day Medication List reviewed and reconciled with the patient * Allergies: N .K.D.A.no[Allergies Verified] Objective: * Vitals: I nhaled Oxygen Flow Rate: 99, Wt: 136.4 lbs, BMI:24.95Index, Ht: 62 in, BP:112/66mm Hg, HR: 77 /min. * P ast Orders: L ab:TSH (Order Date - 02/26/2024) (Collection Date & Time - 02/28/2024) Result: Normal Value Reference Range TSH 1.790 L ab:T4, FREE (Order Date - 02/26/2024) (Collection Date & Time - 02/28/2024) Result: Normal Value Reference Range T4,Free(Direct) 1.07 * Examination: G eneral Examination: General Appearance: W ell developed and well- nourished, NAD. Skin: N o rash or skin lesions. HEENT: N ormocephalic, atraumatic. Oral Cavity N ormal, moist mucus membranes. Neck, Thyroid : S upple, no thyromegaly, no lymphadenopathy, no JVD, no carotid bruit. Heart: R RR, normal S1S2, no murmur, rub, or gallop. Lungs: C lear to auscultation bilaterally, no wheezes, rhonchi, or rales. Abdomen: S oft, NT/ND, BS present, no guarding or rebound, no masses palpated, no hepatosplenomegaly. Extremities: N o clubbing, cyanosis, or edema, pulses 2+ bilaterally. Neurologic Exam: N on-focal exam, CN's II-XII grossly intact. * Physical Examination: Assessment: * Assessment: 1. P ostsurgical hypothyroidism - E89.0 (Primary) 2 . 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 May 2018: Thyroglobulin < 0.7, Ab wnl Jun 2019:Thyroglobulin 0.2 unstimulated Mar 2020: Thyroglobulin 5.8 stimulated level (with high TSH) at [facility], [place], PT received third BAKER Rx TSH goal < 0.1 till Apr: Patient 12 weeks post , stopped breast feeding 6 weeks ago Mar: 9 weeks now * Procedure Codes: * Preventive Medicine: Counseling: C ounseling BMI Management Y es Above Normal BMI Follow-up D ietary management education, guidance, and counseling B P Management: PHYSICAL ACTIVITY RECOMMENDATION: R ecommendation to exercise WEIGHT REDUCTION RECOMMENDATION: T arget weight discussed PRE-HYPERTENSIVE FOLLOW-UP PLAN: F ollow-up 1 week FIRST HYPERTENSIVE BP READING FOLLOW-UP PLAN: F ollow-up 1 week LIFESTYLE RECOMMENDATION: H ypertension education * Follow Up: 1 Year (Reason: labs in 3 weeks) * Billing Information: * Visit Code: * Procedure Codes: * Sign off status: Completed true * Provider: Munira Emery MD Date: 1 Generated for Anitha hess/Suzi/Rita on: 0 07/27/2024 03:40 PM 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 Patient mares d a thyroid nodule, biopsy showed Atypical Papillary thyroid cancer and so thyroidectomy was done. Rx Amiodarone, [place] Thyroid cancer Thyroidectomy 01/30/2018 Ablation Apr 2018, Apr 2019, Apr 2020 WHole Body Scan Apr 2018, Apr 2019 , Apr 2020 Thyroid Cancer Prognosis Age Less than 40 Histology Papillary Cancer, 1. 7 cm Tumor Size 1.7 cm, classic vari ant Extrathyroidal invasion Multicentricity Lymph node metastasis Intrathyroidal invasion Vascular invasio n present Thyroglobulin levels pT1b Examination Category Sub-Category Detail Notes Category Not es General Examination HEENT: Normocephalic, atraum atic Neck, Thyroid : Supple, no thyromega ly, no lymphadenopathy, no JVD, no carotid bruit Heart: RRR, normal S1S2, no murmur, rub, or gallop Lungs: Clear to auscultatio n bilaterally, no wheezes, rhonchi, or rales Abdomen: Soft, NT/ND, BS pres ent, no guarding or rebound, no masses palpated, no hepatosplenomegaly Extremities: No clubbing, cyanosi s, or edema, pulses 2+ bilaterally General Appearance: Well developed and w ell- nourished, NAD Skin: No rash or skin lesi ons Neurologic Exam: Non-focal exam, CN's II-XII grossly intact Oral Cavity Normal, moist mucus membranes
[2024-07-27 21:50] LABS: Thyroid Stimulating Hormone 0.712 uIU/mL (0.465-4.680)
== END 2024-07-27 15:37 | disposition home or self-care (01) ==
LOC: ANHLAB 15:38
PROVIDERS: PCP Internal Medicine Endocrinology, Diabetes & Metabolism; Visit Provider Internal Medicine Endocrinology, Diabetes & Metabolism
DX: E89.0 Postprocedural hypothyroidism (principal); C73 Malignant neoplasm of thyroid gland
CPT/HCPCS: 36415; 84443

== ENCOUNTER 2024-08-11 15:44 | Outpatient (CLI) | payer OTHER, BC, SELFPAY ==
[2024-08-11 16:44] LABS: Hematocrit 37.7 % (37.0-47.0); Hemoglobin 12.6 g/dL (12.0-15.0); Mean Corpuscular HGB Conc 33.4 g/dl (32-36); Mean Corpuscular Hemoglobin 30.4 pg (26-34); Mean Corpuscular Volume 90.8 fl (80-100); Mean Platelet Volume 9.9 fl (7.4-10.4); Platelet Count Result 243 k/mm3 (150-375); Red Blood Count 4.15 M/mm3 (4.2-5.4); Red Cell Distribution Width 12.4 % (11.5-14.5); White Blood Count 8.5 K/mm3 (4.5-10.0)
[2024-08-11 17:29] LABS: Syphilis IgG/IgM Antibody Negative (Negative)
[2024-08-11 17:32] LABS: Hepatitis B Surface Antigen Negative (Negative); Rubella IgG Antibody 23.8 IU/ML
[2024-08-11 17:34] LABS: HIV 1/2 Ab P24 Ag Result Negative (Negative)
--- OUTSIDE RECORDS SUMMARY | 2024-08-11 18:14 | XMS_ITS | Patient Health Record ---
Author Organization [facility] Endo & Obesity Med Address [address] [address] Care Team Providers Care Manager Program Management Name Role Phone CECILJOSSY TAYLORERY Primary Care Provider Unavailab radha Farhan Emery Unavailable [phone] Allergies No Known Allergies Results Component Value Reference Range Notes TSH Reviewed date:08/03/2024 04:28:14 PM Interpretation: Performing Lab: Notes/Report: TSH 0.712 T4, FREE Reviewed date:03/02/2024 01:57:55 PM Interpretation:Normal Performing Lab: Notes/Report: Normal T4,Free(Direct) 1.07 TSH Reviewed date:03/02/2024 01:58:03 PM Interpretation:Normal Performing Lab: Notes/Report: Normal TSH 1.790 Reason For Referral No Information Medications Medication [...] Notes Problem Malignant tumor of thyroid gland (033705166) Malignant neoplasm of thyroid gland (C73) Active confirmed Problem Postsurgical hypothyroidism (51091639) Postsurgical hypothyroidism (E89.0) Active confirmed Vital Signs Blood pressure diastolic 66 mm Hg 03/20/2024 Height 62 in 03/20/2024 Blood pressure systolic 112 mm Hg 03/20/2024 Weight 136.4 lbs 03/20/2024 BMI 24.95 kg/m2 03/20/2024 Encounters Encounter Location Date Provider Diagnosis [place] [address] [place] [address] 03/20/2024 Farhan Emery Postsurgical hypothyroidism E89.0 and Malignant neoplasm of thyroid gland C73 [place] [address] [place] [address] 02/26/2024 [place] [address] [place] [address] 03/02/2024 Farhan Emery Postsurgical hypothyroidism E89.[address] [address] 04/13/2024 [place] [address] [place] [address] 07/26/2024 Farhan Emery Assessments Encounter Date Diagnosis (ICD Code) Assessment Notes Treatment Notes Treatment Clinical Notes Section Notes 03/02/2024 Postsurgical hypothyroidism (ICD-10 - E89.0) 03/20/2024 Postsurgical hypothyroidism (ICD-10 - E89.0) Old records reviewed THyroidectomy Jan 2018. Jan 2018: Start LT4 100 mcg WIll schedule BAKER Rx based on pathology. Plannng to do in [place]. 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, vascular invasion, pT1b, Classic Variant 04/2018 BAKER RX, Apr 2019, Apr 2020 with in [facility] May 2018: Thyroglobulin < 0.7, Ab wnl Jun 2019:Thyroglobuli n 0.2 unstimulated Mar 2020: Thyroglobulin 5.8 stimulated level (with high TSH) at [facility], [place], PT received third BAKER Rx TSH goal < 0.1 till Apr: Patient 12 weeks post , stopped breast feeding 6 weeks ago Mar: 9 weeks now Plan Of Treatment Pending Test Test Name Order Date TSH 03/20/2024 TSH 10/26/2022 TSH 08/05/2024 Thyroglobulin Quantitative and Antibody 03/20/2024 Thyroglobulin Quantitative and Antibody 05/21/2018 T4, FREE 03/20/2024 Insurance Providers Payer Name Payer Address Payer Phone Subscriber Number Group Number Insured Name Patient Relationship to Insured Coverage Start Date Coverage End Date [employer] [address] [place] [address] [id number] MERE BERGER Child - Insured does not [...]
--- OUTSIDE RECORDS SUMMARY | 2024-08-11 18:15 | XMS_ITS ---
Author Organization [facility] Endo & Obesity Med Address [address] [facility] [address] [place] [address] Care Team Providers Care Fixture Maker Name Role Phone MODESTOJOSSYSHIELA Primary Care Provider Farhan Hare Unavailable [phone] REASON FOR VISIT Encounters Encounter Location Date Provider Diagnosis [facility] [address] [place] [address] 07/26/2024 Farhan Emery Plan Of Treatment No Information Progress Notes * Yaneth SPICER NDOB:[birth year] (28 yo F)Acc No.[id number]:07/26/2024 Patient: Sarita LEOPATSYGRETTA Yaneth Louis :1995 A ge:28 Y S ex:Female Address:[address] [facility] [address] * true * Date: Generated for Printi ng/Faxing/eTransmitting on: 0 08/11/2024 06:14 PM 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
--- OUTSIDE RECORDS SUMMARY | 2024-08-11 18:15 | XMS_ITS ---
Author Organization [facility] Endo & Obesity Med Address [address] [facility] [address] [place] [address] Care Team Providers Care Manufacturing Weaver Name Role Phone CECILJOSSY TAYLORERY Primary Care Provider Farhan Hare Unavailable [phone] Allergies No Known Allergies REASON FOR VISIT [...] 024 Encounters Encounter Location Date Provider Diagnosis [place] [address] [place] [address] 03/20/2024 Farhan Emery Postsurgical hypothyroidism E89.0 and Malignant neoplasm of thyroid gland C73 Assessments Encounter Date Diagnosis (ICD Code) Assessment Notes Treatment Notes Treatment Clinical Notes Section Notes 03/20/2024 Postsurgical hypothyroidism (ICD-10 - E89.0) Old records reviewed THyroidectomy Jan 2018. Jan 2018: Start LT4 100 mcg WIll schedule BAKER Rx based on pathology. Plannng to do in [place]. 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, vascular invasion, pT1b, Classic Variant 04/2018 BAKER RX, Apr 2019, Apr 2020 with in [facility] May 2018: Thyroglobulin < 0.7, Ab wnl Jun 2019:Thyroglobuli n 0.2 unstimulated Mar 2020: Thyroglobulin 5.8 stimulated level (with high TSH) at [facility], So, PT received third BAKER Rx [...] * Yaneth SPICER NDOB:[birth year] (28 yo F)Acc No.[id number]:03/20/2024 Patient: Yaneth DENNY Missy Provider: Munira Emery MD :1995 A ge:28 Y S ex:Female Date:03/20/2024 Address:[address] [place] [address] , [place] [id number] Pcp:SHIELA SALVADOR Subjective: * Chief Complaints: * [...] Rx. Denies : Antibodies. Denies : Amiodarone, [facility]. Denies : tiredness,sleepiness. Denies : weight gain. [...] RX, Apr 2019, Apr 2020 with in [facility] May 2018: Thyroglobulin < 0.7, Ab wnl Jun 2019:Thyroglobulin 0.2 unstimulated Mar 2020: Thyroglobulin 5.8 stimulated level (with high TSH) at [facility], So, PT received third BAKER Rx [...] 1 Generated for Anitha hess/Suzi/Rita on: 0 08/11/2024 06:15 PM GED TUTOR History and Physical Notes * HPI (History [...] and so thyroidectomy was done. Rx Amiodarone, [facility] Thyroid cancer Thyroidectomy 01/30/2018 Ablation Apr 2018, [...]
--- OUTSIDE RECORDS SUMMARY | 2024-08-11 18:15 | XMS_ITS ---
Author Organization [facility] Endo & Obesity Med Address [address] [facility] [address] [place] [address] Care Team Providers Care Mobile Heavy Equipment Operator Name Role Phone MODESTOJOSSYSHIELA Primary Care Provider Farhan Hare Unavailable [phone] REASON FOR VISIT Miscarriage Encounters Encounter Location Date Provider Diagnosis [facility] [address] [place] [address] 04/13/2024 Farhan Emery Plan Of Treatment No Information Progress Notes * Yaneth SPICER NDOB:[birth year] (28 yo F)Acc No.[id number]:04/13/2024 Patient: Sarita GRACE Yaneth Louis :1995 A ge:28 Y S ex:Female Address:[address] [facility] [address] * true * Date: Generated for Printi ng/Faxing/eTransmitting on: 0 08/11/2024 06:14 PM 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
[2024-08-13 07:19] LABS: Varicella IgG Antibody <1.00 S/CO
== END 2024-08-11 15:45 | disposition home or self-care (01) ==
PROVIDERS: PCP Internal Medicine Endocrinology, Diabetes & Metabolism; Visit Provider Student in an Organized Health Care Education/Training Program
DX: N91.2 Amenorrhea, unspecified (principal)
CPT/HCPCS: 36415; 84702; 85027; 86593; 86644; 86703; 86747; 86762; 86787; 86850; 86900; 86901; 87086; 87340; G0432

== ENCOUNTER 2024-08-24 15:48 | Outpatient (CLI) | payer OTHER, BC, SELFPAY ==
[2024-08-24 17:23] LABS: Thyroid Stimulating Hormone 0.653 uIU/mL (0.465-4.680)
--- OUTSIDE RECORDS SUMMARY | 2024-08-24 18:30 | XMS_ITS ---
Author Organization [facility] Endo & Obesity Med Address [address] [facility] [address] [place] [address] Care Team Providers Care Lie Detector Operator Name Role Phone MODESTOJOSSYSHIELA Primary Care Provider Farhan Hare Unavailable [phone] REASON FOR VISIT Miscarriage Encounters Encounter Location Date Provider Diagnosis [facility] [address] [place] [address] 04/13/2024 Farhan Emery Plan Of Treatment No Information Progress Notes * Yaneth SPICER NDOB:[birth year] (28 yo F)Acc No.[id number]:04/13/2024 Patient: Sarita GRACE Yaneth Louis :1995 A ge:28 Y S ex:Female Address:[address] [facility] [address] * true * Date: Generated for Printi ng/Faxing/eTransmitting on: 0 08/24/2024 06:30 PM CDT
--- OUTSIDE RECORDS SUMMARY | 2024-08-24 18:30 | XMS_ITS ---
Author Organization [facility] Address [address] [facility] [address] [place] [address] Care Team Providers Care Trousseau Consultant Name Role Phone GMROSY SHIELA Primary Care Provider Farhan Hare Unavailable [phone] Allergies No Known Allergies REASON FOR VISIT [...] 024 Encounters Encounter Location Date Provider Diagnosis [place] [address] [place] [address] 03/20/2024 Farhan Emery Postsurgical hypothyroidism E89.0 and Malignant neoplasm of thyroid gland C73 Assessments Encounter Date Diagnosis (ICD Code) Assessment Notes Treatment Notes Treatment Clinical Notes Section Notes 03/20/2024 Postsurgical hypothyroidism (ICD-10 - E89.0) Old records reviewed THyroidectomy Jan 2018. Jan 2018: Start LT4 100 mcg WIll schedule BAKER Rx based on pathology. Plannng to do in [place]. 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, vascular invasion, pT1b, Classic Variant 04/2018 BAKER RX, Apr 2019, Apr 2020 with in [facility] May 2018: Thyroglobulin < 0.7, Ab wnl Jun 2019:Thyroglobuli n 0.2 unstimulated Mar 2020: Thyroglobulin 5.8 stimulated level (with high TSH) at [facility], So, PT received third BAKER Rx [...] * Yaneth SPICER NDOB:[birth year] (28 yo F)Acc No.[id number]:03/20/2024 Patient: Yaneth DENNY Missy Provider: Munira Emery MD :1995 A ge:28 Y S ex:Female Date:03/20/2024 Address:[address] [place] [address] , [place] [id number] Pcp:SHIELA SALVADOR Subjective: * Chief Complaints: * [...] Rx. Denies : Antibodies. Denies : Amiodarone, [facility]. Denies : tiredness,sleepiness. Denies : weight gain. [...] RX, Apr 2019, Apr 2020 with in [facility] May 2018: Thyroglobulin < 0.7, Ab wnl Jun 2019:Thyroglobulin 0.2 unstimulated Mar 2020: Thyroglobulin 5.8 stimulated level (with high TSH) at [facility], So, PT received third BAKER Rx [...] 1 Generated for Anitha hess/Suzi/Rita on: 0 08/24/2024 06:30 PM CDT History and Physical Notes * HPI (History [...] and so thyroidectomy was done. Rx Amiodarone, [facility] Thyroid cancer Thyroidectomy 01/30/2018 Ablation Apr 2018, [...]
--- OUTSIDE RECORDS SUMMARY | 2024-08-24 18:30 | XMS_ITS ---
Author Organization [facility] Endo & Obesity Med Address [address] [facility] [address] [place] [address] Care Team Providers Care Department Operations Manager Name Role Phone MODESTOJOSSYSHIELA Primary Care Provider Farhan Hare Unavailable [phone] REASON FOR VISIT Encounters Encounter Location Date Provider Diagnosis [facility] [address] [place] [address] 07/26/2024 Farhan Emery Plan Of Treatment No Information Progress Notes * Yaneth SPICER NDOB:[birth year] (28 yo F)Acc No.[id number]:07/26/2024 Patient: Sarita LEOPATSYGRETTA Yaneth Louis :1995 A ge:28 Y S ex:Female Address:[address] [facility] [address] * true * Date: Generated for Printi ng/Faxing/eTransmitting on: 0 08/24/2024 06:30 PM CDT
== END 2024-08-24 15:49 | disposition home or self-care (01) ==
PROVIDERS: PCP Internal Medicine Endocrinology, Diabetes & Metabolism; Visit Provider Internal Medicine Endocrinology, Diabetes & Metabolism
DX: C73 Malignant neoplasm of thyroid gland (principal); E89.0 Postprocedural hypothyroidism
CPT/HCPCS: 36415; 84443

== ENCOUNTER 2024-09-25 13:55 | Outpatient (CLI) | payer OTHER, BC, SELFPAY ==
--- OUTSIDE RECORDS SUMMARY | 2024-09-25 13:58 | XMS_ITS | Patient Health Record ---
Author Organization [facility] Endo [facility] Obesity Med Address [address] [facility] [address] [place] [address] Care Team Providers Care Zinc Etcher Name Role Phone GMROSY SHIELA Primary Care Provider Unavailab radha Farhan Emery Unavailable [phone] Allergies No Known Allergies Results Component Value Reference Range Notes T4, FREE Reviewed date:03/02/2024 01:57:55 PM Interpretation:Normal Performing Lab: Notes/Report: Normal T4,Free(Direct) 1.07 TSH Reviewed date:03/02/2024 01:58:03 PM Interpretation:Normal Performing Lab: Notes/Report: Normal TSH 1.790 TSH Reviewed date:08/03/2024 04:28:14 PM Interpretation: Performing Lab: Notes/Report: TSH 0.712 TSH Reviewed date:08/27/2024 12:44:18 PM Interpretation:Normal Performing Lab: Notes/Report: Normal TSH, 0.653 Reason For Referral No Information Medications Medication [...] Notes Problem Malignant tumor of thyroid gland (538013502) Malignant neoplasm of thyroid gland (C73) Active confirmed Problem Postsurgical hypothyroidism (37092435) Postsurgical hypothyroidism (E89.0) Active confirmed Vital Signs Blood pressure diastolic 66 mm Hg 03/20/2024 Height 62 in 03/20/2024 Blood pressure systolic 112 mm Hg 03/20/2024 Weight 136.4 lbs 03/20/2024 BMI 24.95 kg/m2 03/20/2024 Encounters Encounter Location Date Provider Diagnosis [address] [address] 03/20/2024 Farhan Rupert Postsurgical hypothyroidism E89.0 and Malignant neoplasm of thyroid gland C73 [address] [address] 02/26/[address] [address] 03/02/2024 Farhan Rupert Postsurgical hypothyroidism E89.[address] [address] 04/13/[address] [address] 07/26/[address] [address] 08/27/2024 Farhan Rupert Assessments Encounter Date Diagnosis (ICD Code) Assessment Notes Treatment Notes Treatment Clinical Notes Section Notes 03/20/2024 Postsurgical hypothyroidism (ICD-10 - E89.0) Old records reviewed THyroidectomy Jan 2018. Jan 2018: Start LT4 100 mcg WIll schedule BAKER Rx based on pathology. Plannng to do in [place]. 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, vascular invasion, pT1b, Classic Variant 04/2018 BAKER RX, Apr 2019, Apr 2020 with in [facility] May 2018: Thyroglobulin < 0.7, Ab wnl Jun 2019:Thyroglobuli n 0.2 unstimulated Mar 2020: Thyroglobulin 5.8 stimulated level (with high TSH) at [facility], So, PT received third BAKER Rx TSH goal < 0.1 till Apr: Patient 12 weeks post , stopped breast feeding 6 weeks ago Mar: 9 weeks now Plan Of Treatment Pending Test Test Name Order Date TSH 03/20/2024 TSH 10/26/2022 TSH 08/27/2024 Thyroglobulin Quantitative and Antibody 03/20/2024 Thyroglobulin Quantitative and Antibody 05/21/2018 T4, FREE 03/20/2024 Insurance Providers Payer Name Payer Address Payer Phone Subscriber Number Group Number Insured Name Patient Relationship to Insured Coverage Start Date Coverage End Date [employer] [address] [place] [address] [id number] MERE BERGER Child - Insured does not [...]
--- OUTSIDE RECORDS SUMMARY | 2024-09-25 13:59 | XMS_ITS ---
Author Organization [facility] Obesity Med Address [address] [facility] [address] [place] [address] Care Team Providers Care Milled Lumber Grader Name Role Phone MODESTOJOSSYSHIELA Primary Care Provider Adilsonab Farhan De Dios Unavailable [phone] REASON FOR VISIT TSH Encounters Encounter Location Date Provider Diagnosis [facility] [address] [place] [address] 08/27/2024 Farhan Emery Plan Of Treatment No Information Progress Notes * Yaneth SPICER NDOB:[birth year] (28 yo F)Acc No.[id number]:08/27/2024 Patient: Sarita LEONAKITA Yaneth Louis :1995 A ge:28 Y S ex:Female Address:[address] [facility] [address] * true * Date: Generated for Printi ng/Faxing/eTransmitting on: 0 09/25/2024 01:59 PM CDT
--- OUTSIDE RECORDS SUMMARY | 2024-09-25 13:59 | XMS_ITS ---
Author Organization [facility] Endo & Obesity Med Address [address] [facility] [address] [place] [address] Care Team Providers Care Railway Track Worker Name Role Phone MODESTOJOSSYSHIELA Primary Care Provider Farhan Hare Unavailable [phone] REASON FOR VISIT Miscarriage Encounters Encounter Location Date Provider Diagnosis [facility] [address] [place] [address] 04/13/2024 Farhan Emery Plan Of Treatment No Information Progress Notes * Yaneth SPICER NDOB:[birth year] (28 yo F)Acc No.[id number]:04/13/2024 Patient: Sarita GRACE Yaneth Louis :1995 A ge:28 Y S ex:Female Address:[address] [facility] [address] * true * Date: Generated for Printi ng/Faxing/eTransmitting on: 0 09/25/2024 01:59 PM CDT
--- OUTSIDE RECORDS SUMMARY | 2024-09-25 13:59 | XMS_ITS ---
Author Organization [facility] Endo & Obesity Med Address [address] [facility] [address] [place] [address] Care Team Providers Care People Manager Name Role Phone MODESTOJOSSYSHIELA Primary Care Provider Farhan Hare Unavailable [phone] REASON FOR VISIT Encounters Encounter Location Date Provider Diagnosis [facility] [address] [place] [address] 07/26/2024 Farhan Emery Plan Of Treatment No Information Progress Notes * Yaneth SPICER NDOB:[birth year] (28 yo F)Acc No.[id number]:07/26/2024 Patient: Sarita LEOPATSYGRETTA Yaneth Louis :1995 A ge:28 Y S ex:Female Address:[address] [facility] [address] * true * Date: Generated for Printi ng/Faxing/eTransmitting on: 0 09/25/2024 01:58 PM CDT
== END 2024-09-25 13:56 | disposition home or self-care (01) ==
LOC: ANHLAB 13:57
PROVIDERS: PCP Internal Medicine Endocrinology, Diabetes & Metabolism; Visit Provider Internal Medicine Endocrinology, Diabetes & Metabolism
DX: E89.0 Postprocedural hypothyroidism (principal); C73 Malignant neoplasm of thyroid gland
CPT/HCPCS: 36415; 84443

== ENCOUNTER 2024-10-26 16:23 | Outpatient (CLI) | payer OTHER, BC, SELFPAY ==
--- OUTSIDE RECORDS SUMMARY | 2024-10-26 17:25 | XMS_ITS | Patient Health Record ---
Author Organization [facility] Endo [facility] Obesity Med Address [address] [facility] [address] [place] [address] Care Team Providers Care Budget Officer Name Role Phone MODESTO SHIELA Primary Care Provider Unavailab radha Farhan Emery Unavailable [phone] Allergies No Known Allergies Results Component Value Reference Range Notes TSH Reviewed date:09/28/2024 04:32:55 PM Interpretation:change to 137 mcg Performing Lab: Notes/Report: change to 137 mcg TSH, 5.330 TSH Reviewed date:08/03/2024 04:28:14 PM Interpretation: Performing Lab: Notes/Report: TSH 0.712 TSH Reviewed date:03/02/2024 01:58:03 PM Interpretation:Normal Performing Lab: Notes/Report: Normal TSH 1.790 T4, FREE Reviewed date:03/02/2024 01:57:55 PM Interpretation:Normal Performing Lab: Notes/Report: Normal T4,Free(Direct) 1.07 TSH Reviewed date:08/27/2024 12:44:18 PM Interpretation:Normal Performing Lab: Notes/Report: Normal TSH, 0.653 Reason For Referral No Information Medications Medication SIG (Take, Route, Frequency, Duration) Notes Start Date End Date Status Levothyroxine Sodium 137 MCG 1 tablet in the morning on an empty stomach orally once a day for 30 days Active Social History Tobacco Use: Social History Observation Description Date Details (start date - stop date) Never Smoker NA - NA Tobacco Control (Standard) Question Answer Notes Tobacco use: Nonsmoker Problems Problem Type SNOMED Code ICD Code Onset Dates Problem Status W/U Status Risk Notes Problem Malignant tumor of thyroid gland (076755070) Malignant neoplasm of thyroid gland (C73) Active confirmed Problem Postsurgical hypothyroidism (80083855) Postsurgical hypothyroidism (E89.0) Active confirmed Vital Signs Blood pressure diastolic 66 mm Hg 03/20/2024 Height 62 in 03/20/2024 Blood pressure systolic 112 mm Hg 03/20/2024 Weight 136.4 lbs 03/20/2024 BMI 24.95 kg/m2 03/20/2024 Encounters Encounter Location Date Provider Diagnosis [address] [address] 03/20/2024 [facility] Postsurgical hypothyroidism E89.0 and Malignant neoplasm of thyroid gland C73 [address] [address] 02/26/[address] [address] 03/02/2024 [facility] Postsurgical hypothyroidism E89.[address] [address] 04/13/[address] [address] 07/26/[address] [address] 08/27/[address] [address] 09/28/2024 [facility] Postsurgical hypothyroidism E89.0 Assessments Encounter Date Diagnosis (ICD Code) Assessment Notes Treatment Notes Treatment Clinical Notes Section Notes 03/02/2024 Postsurgical hypothyroidism (ICD-10 - E89.0) 03/20/2024 Postsurgical hypothyroidism (ICD-10 - E89.0) Old records reviewed THyroidectomy Jan 2018. Jan 2018: Start LT4 100 mcg WIll schedule BAKER Rx based on pathology. Plannng to do in [place]. 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, vascular invasion, pT1b, Classic Variant 04/2018 BAKER RX, Apr 2019, Apr 2020 with in [facility] May 2018: Thyroglobulin < 0.7, Ab wnl Jun 2019:Thyroglobuli n 0.2 unstimulated Mar 2020: Thyroglobulin 5.8 stimulated level (with high TSH) at [facility], [place], PT received third BAKER Rx TSH goal < 0.1 till Apr: Patient 12 weeks post , stopped breast feeding 6 weeks ago Mar: 9 weeks now Plan Of Treatment Pending Test Test Name Order Date TSH 03/20/2024 TSH 10/26/2022 TSH 09/29/2024 Thyroglobulin Quantitative and Antibody 03/20/2024 Thyroglobulin Quantitative and Antibody 05/21/2018 T4, FREE 03/20/2024 Insurance Providers Payer Name Payer Address Payer Phone Subscriber Number Group Number Insured Name Patient Relationship to Insured Coverage Start Date Coverage End Date [employer] [address] [place] [address] [id number] MERE BERGER Child - Insured does not [...]
--- OUTSIDE RECORDS SUMMARY | 2024-10-26 17:25 | XMS_ITS ---
Author Organization [facility]esity [facility] Address [address] [address] Care Team Providers Care Vulcanizer Operator Name Role Phone SHIELA SALVADOR Primary Care Provider Unavailab Farhan De Dios Unavailable [phone] REASON FOR VISIT TSH Results Medications Medication SIG (Take, Route, Frequency, Duration) Notes Start Date End Date Status Levothyroxine Sodium 137 MCG 1 tablet in the morning on an empty stomach orally once a day for 30 days Active Encounters Encounter Location Date Provider Diagnosis [place] [address] [place] [address] 09/28/2024 Farhan Emery Postsurgical hypothyroidism E89.0 Assessments Encounter Date Diagnosis (ICD Code) Assessment Notes Treatment Notes Treatment Clinical Notes Section Notes 09/28/2024 Postsurgical hypothyroidism (ICD-10 - E89.0) Plan Of Treatment Medication Medication Name Sig Start Date Stop Date Notes Levothyroxine Sodium 137 MCG 1 tablet in the morning on an empty stomach orally once a day for 30 days Progress Notes * Yaneth SPICER NDOB:[birth year] (29 yo F)Acc No.[id number]:09/28/2024 Patient: Sarita LEOPATSYYaneth GLYNN :1995 A ge:29 Y S ex:Female Address:[address] [place], [address] * Refills Refill Levothyroxine Sodium Tablet, 137 MCG, orally, 30 Tablet, 1 tablet in the morning on an empty stomach, once a day, 30 days, Refills=1 * true * Date: Generated for Anitha hess/Suzi/Rita on: 0 10/26/2024 05:25 PM CDT
--- OUTSIDE RECORDS SUMMARY | 2024-10-26 17:26 | XMS_ITS ---
Author Organization [facility] End[facility] & Obesity Med Address [address] [facility] [address] [place] [address] Care Team Providers Care Marine Equipment Preservation Inspector Name Role Phone MODESTOJOSSYSHIELA Primary Care Provider Adilsonab Farhan De Dios Unavailable [phone] REASON FOR VISIT TSH Encounters Encounter Location Date Provider Diagnosis [facility] [address] [place] [address] 08/27/2024 Farhan Emery Plan Of Treatment No Information Progress Notes * Yaneth SPICER NDOB:[birth year] (28 yo F)Acc No.[id number]:08/27/2024 Patient: Sarita LEONAKITA Yaneth Louis :1995 A ge:28 Y S ex:Female Address:[address] [facility] [address] * true * Date: Generated for Printi ng/Faxing/eTransmitting on: 0 10/26/2024 05:25 PM CDT
--- OUTSIDE RECORDS SUMMARY | 2024-10-26 17:26 | XMS_ITS ---
Author Organization [facility] Address [address] [facility] [address] [place] [address] Care Team Providers Care Medical Support Assistant Name Role Phone MODESTOJOSSYSHIELA Primary Care Provider Farhan Hare Unavailable [phone] REASON FOR VISIT Encounters Encounter Location Date Provider Diagnosis [facility] [address] [place] [address] 07/26/2024 Farhan Emery Plan Of Treatment No Information Progress Notes * Yaneth SPICER NDOB:[birth year] (28 yo F)Acc No.[id number]:07/26/2024 Patient: Sarita LEOPATSYGRETTA Yaneth Louis :1995 A ge:28 Y S ex:Female Address:[address] [facility] [address] * true * Date: Generated for Printi ng/Faxing/eTransmitting on: 0 10/26/2024 05:25 PM CDT
== END 2024-10-26 16:24 | disposition home or self-care (01) ==
PROVIDERS: PCP Internal Medicine Endocrinology, Diabetes & Metabolism; Visit Provider Internal Medicine Endocrinology, Diabetes & Metabolism
DX: E89.0 Postprocedural hypothyroidism (principal); C73 Malignant neoplasm of thyroid gland
CPT/HCPCS: 36415; 84443

== ENCOUNTER 2024-11-23 15:31 | Outpatient (CLI) | payer OTHER, BC, SELFPAY ==
--- OUTSIDE RECORDS SUMMARY | 2024-11-23 16:24 | XMS_ITS | Patient Health Record ---
Author Organization [facility] Med Address [address] [facility] [address] [place] [address] Care Team Providers Care Air Traffic Control Equipment Repairer Name Role Phone MODESTO SHIELA Primary Care Provider Unavailab radha Farhan Emery Unavailable [phone] Allergies No Known Allergies Results Component Value Reference Range Notes TSH Reviewed date:03/02/2024 01:58:03 PM Interpretation:Normal Performing Lab: Notes/Report: Normal TSH 1.790 T4, FREE Reviewed date:03/02/2024 01:57:55 PM Interpretation:Normal Performing Lab: Notes/Report: Normal T4,Free(Direct) 1.07 TSH Reviewed date:09/28/2024 04:32:55 PM Interpretation:change to 137 mcg Performing Lab: Notes/Report: change to 137 mcg TSH, 5.330 TSH Reviewed date:08/27/2024 12:44:18 PM Interpretation:Normal Performing Lab: Notes/Report: Normal TSH, 0.653 TSH Reviewed date:08/03/2024 04:28:14 PM Interpretation: Performing Lab: Notes/Report: TSH 0.712 Reason For Referral No Information Medications Medication SIG (Take, Route, Frequency, Duration) Notes Start Date End Date Status Levothyroxine Sodium 150 MCG 1 tablet in the morning on an empty stomach Orally Once a day for 30 days 10/28/2024 Active Levothyroxine Sodium 137 MCG 1 tablet in [...] Notes Problem Malignant tumor of thyroid gland (769530106) Malignant neoplasm of thyroid gland (C73) Active confirmed Problem Postsurgical hypothyroidism (77803062) Postsurgical hypothyroidism (E89.0) Active confirmed Vital Signs Blood pressure diastolic 66 mm Hg 03/20/2024 Height 62 in 03/20/2024 Blood pressure systolic 112 mm Hg 03/20/2024 Weight 136.4 lbs 03/20/2024 BMI 24.95 kg/m2 03/20/2024 Encounters Encounter Location Date Provider Diagnosis [place] [address] [place] [address] 03/20/2024 [facility] Postsurgical hypothyroidism E89.0 and Malignant neoplasm of thyroid gland C73 [address] [address] [place] [address] 02/26/2024 [place] [address] [place] [address] 03/02/2024 [facility] Postsurgical hypothyroidism E89.0 [place] [address] [place] [address] 04/13/2024 [place] [address] [place] [address] 07/26/2024 [place] [address] [place] [address] 08/27/2024 [place] [address] [place] [address] 09/28/2024 [facility] Postsurgical hypothyroidism E89.0 [place] [address] [place] [address] 10/28/2024 [facility] Dariusz Assessments Encounter Date Diagnosis (ICD Code) Assessment Notes Treatment Notes Treatment Clinical Notes Section Notes 03/02/2024 Postsurgical hypothyroidism (ICD-10 - E89.0) 03/20/2024 Postsurgical hypothyroidism (ICD-10 - E89.0) Old records reviewed THyroidectomy Jan 2018. Jan 2018: Start LT4 100 mcg WIll schedule BAKER Rx based on pathology. Plannng to do in [place]. Mar 2023: TSH goal < 0.1 till [...] RX, Apr 2019, Apr 2020 with in [facility] May 2018: Thyroglobulin < 0.7, Ab wnl Jun 2019:Thyroglobuli n 0.2 unstimulated Mar 2020: Thyroglobulin 5.8 stimulated level (with high TSH) at [facility], [place], PT received third BAKER Rx [...] Insured Coverage Start Date Coverage End Date [employer] [address] [facility] [address] [id number] MERE BERGER Child - Insured does not [...]
== END 2024-11-23 15:32 | disposition home or self-care (01) ==
LOC: ANHLAB 15:36
PROVIDERS: Visit Provider Internal Medicine Endocrinology, Diabetes & Metabolism
DX: C73 Malignant neoplasm of thyroid gland (principal); E89.0 Postprocedural hypothyroidism
CPT/HCPCS: 36415; 84443

== ENCOUNTER 2024-12-29 22:32 | Observation (INO) | payer OTHER, BC, SELFPAY ==
--- NOTE | ~2024-12-29 | US_ITS ---
US OB limited 12/30/2024 09:10 Indication: Cervical length. Placenta check. Amniotic fluid index. Procedure: High-resolution Limited obstetrical ultrasound Comparison: Ultrasound dated 12/23/2024 Findings: There is an anterior placenta which covers the internal os consistent with previa. QUINN is n ormal measuring 10.4 cm. Cervical length measures 5.6 cm. There is a single living intrauterine pregn uli in transverse presentation with heart rate of 148 BPM. Impression: 1: Single living intrauterine in transverse presentation. 2: Anterior placenta with previa. 3: Normal QUINN measures 10.4 cm. Reviewed, dictated and finalized at location B. Impression: 1: Single living intrauterine in transverse presentation. 2: Anterior placenta with previa. 3: Normal QUINN measures 10.4 cm.
--- OUTSIDE RECORDS SUMMARY | 2024-12-29 22:39 | XMS_ITS | Patient Health Record ---
Author Organization [facility] Address [address] [facility] [address] [place] [address] Care Team Providers Care Dinkey Skinner Name Role Phone MODESTO SHIELA Primary Care Provider Unavailab radha Farhan Emery Unavailable [phone] Allergies No Known Allergies Results Component Value Reference Range Notes TSH Reviewed date:08/27/2024 12:44:18 PM Interpretation:Normal Performing Lab: Notes/Report: Normal TSH, 0.653 T4, FREE Reviewed date:03/02/2024 01:57:55 PM Interpretation:Normal Performing Lab: Notes/Report: Normal T4,Free(Direct) 1.07 TSH Reviewed date:03/02/2024 01:58:03 PM Interpretation:Normal Performing Lab: Notes/Report: Normal TSH 1.790 TSH Reviewed date:09/28/2024 04:32:55 PM Interpretation:change to 137 mcg Performing Lab: Notes/Report: change to 137 mcg TSH, 5.330 TSH Reviewed date:08/03/2024 04:28:14 PM Interpretation: Performing Lab: Notes/Report: TSH 0.712 TSH Reviewed date:12/01/2024 03:58:01 PM Interpretation:Normal Performing Lab: Notes/Report: Normal TSH, 2.150 Reason For Referral No Information Medications Medication SIG (Take, Route, Frequency, Duration) Notes Start Date End Date Status Levothyroxine Sodium 150 MCG 1 tablet in the morning on an empty stomach Orally Once a day; Duration: 30 days 10/28/2024 Active Social History Tobacco Use: Social History Observation Description Date Details (start date - stop date) Never Smoker NA - NA Tobacco Control (Standard) Question Answer Notes Tobacco use: Nonsmoker Problems Problem Type SNOMED Code ICD Code Onset Dates Problem Status W/U Status Risk Notes Problem Malignant tumor of thyroid gland (828416633) Malignant neoplasm of thyroid gland (C73) Active confirmed Problem Postsurgical hypothyroidism (40369057) Postsurgical hypothyroidism (E89.0) Active confirmed Vital Signs Blood pressure diastolic 66 mm Hg 03/20/2024 Height 62 in 03/20/2024 Blood pressure systolic 112 mm Hg 03/20/2024 Weight 136.4 lbs 03/20/2024 BMI 24.95 kg/m2 03/20/2024 Encounters Encounter Location Date Provider Diagnosis [place] [address] [place] [address] 03/20/2024 Farhan Raju Postsurgical hypothyroidism E89.0 and Malignant neoplasm of thyroid gland C73 [address] [place] [address] 02/26/2024 [place] [place] [address] 03/02/2024 [facility] Postsurgical hypothyroidism E89.0 [address] [address] [place] [address] 04/13/2024 [place] [place] [address] 07/26/2024 [place] [place] [address] 08/27/2024 [place] [place] [address] 09/28/2024 Farhan Raj Postsurgical hypothyroidism E89.0 [place] [place] [address] 10/28/2024 [place] [address] [place] [address] 11/26/2024 [facility] [address] [facility] [address] [place] [address] 12/22/2024 Farhan Raju Postsurgical hypothyroidism E89.0 Assessments Encounter Date Diagnosis (ICD Code) Assessment Notes Treatment Notes Treatment Clinical Notes Section Notes 03/20/2024 Postsurgical hypothyroidism (ICD-10 - E89.0) Old records reviewed THyroidectomy Jan 2018. Jan 2018: Start LT4 100 mcg WIll schedule BAKER Rx based on pathology. Plannng to do in [place]. 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, [place], PT received third BAKER Rx TSH goal < 0.1 till Apr: Patient 12 weeks post , stopped breast feeding 6 weeks ago Mar: 9 weeks now Plan Of Treatment Pending Test Test Name Order Date TSH 03/20/2024 TSH 10/26/2022 TSH 11/30/2024 Thyroglobulin Quantitative and Antibody 03/20/2024 Thyroglobulin Quantitative and Antibody 05/21/2018 T4, FREE 03/20/2024 Insurance Providers Payer Name Payer Address Payer Phone Subscriber Number Group Number Insured Name Patient Relationship to Insured Coverage Start Date Coverage End Date [employer] [address] [place] [address] [id number] MERE BERGER Child - Insured does not [...]
[2024-12-29 23:04] LABS: Hematocrit 33.9 % (37.0-47.0); Hemoglobin 11.3 g/dL (12.0-15.0); Immature Granulocyte Percent A 1.0 % (0-0.5); Lymphocytes Absolute Auto 2.99 K/mm3 (0.9-3.2); Mean Corpuscular HGB Conc 33.3 g/dl (32-36); Mean Corpuscular Hemoglobin 30.4 pg (26-34); Mean Corpuscular Volume 91.1 fl (80-100); Nucleated Red Blood Cells Absolute Auto 0.000 K/mm3 (0.0-0.012); Nucleated Red Blood Cells Perc 0.0 % (0.0-0.2); Platelet Count Result 218 k/mm3 (150-375); Red Blood Count 3.72 M/mm3 (4.2-5.4); White Blood Count 11.3 K/mm3 (4.5-10.0)
[2024-12-29 23:18] LABS: INR 0.9; Prothrombin Time 12.7 Seconds (11.1-14.7)
[2024-12-29 23:19] VITALS: BP 112/56; PULSE 79
[2024-12-29 23:19] LABS: Fibrinogen 405 mg/dl (215-510); Partial Thromboplastin Time 24.5 Seconds (22.3-36.8)
--- NOTE | 2024-12-29 23:29 | PC.NURSE ---
Talked to Dr. Hernández at this time reported lab work as well as FHT and patient not feeling any contractions. Orders to do NST on the patient q2h and she will come see this patient in the morning
[2024-12-29 23:30] VITALS: BP 109/68; PULSE 79
--- NOTE | 2024-12-29 23:38 | OBADM ---
This patient, Yaneth Escoto, admitted to the OB room OB Post 116 for observation. Patient/family oriented to hospital policies and general routines including ID bracelet, bed and alarms, visiting hours, pain management, procedures, bathroom and other care routines, personal items, smoking policy, room service/diet, and visiting hours. Patient/Family are encouraged to report perceived risks to care and to ask questions if they do not understand what they are told or what they should do.
[2024-12-30] VITALS (23 sets, daily range): BP systolic 91–111; BP diastolic 48–54; PULSE 66–82; RESP 16–18; TEMP 36.2–37.1; O2SAT 97–100; BMI 28.4
--- NOTE | 2024-12-30 07:08 | PC.NURSE ---
Dr. Hernández on unit and informed pt has had no vaginal bleeding overnight. No leakage of fluid. NST was just reactive. Order for U/S received.
--- NOTE | 2024-12-30 07:16 | PM.OBTRLD ---
OB - Triage/Final Diagnosis Visit Information Comments/Additional reasons for admission: I have assessed the risk for this patient, Yaneth Escoto, and determined that she would benefit from observation care. Evaluation Laboratory results: Laboratory Tests 12/29/24 22:47 WBC 11.3 H RBC 3.72 L Hgb 11.3 L Hct 33.9 L MCV 91.1 MCH 30.4 MCHC 33.3 RDW 12.9 Plt Count 218 MPV 10.5 H Immature Gran % (Auto) 1.0 H Neut % (Auto) 64.9 Lymph % (Auto) 26.6 [place] % (Auto) 6.3 Eos % (Auto) 0.8 Baso % (Auto) 0.4 Lymph # (Auto) 2.99 [place] # (Auto) 0.7 H Eos # (Auto) 0.1 Baso # (Auto) 0.0 Abs Immat Gran (auto) 0.11 H Absolute Neuts (auto) 7.3 H Absolute Nucleated RBC 0.000 Nucleated RBC % 0.0 PT 12.7 INR 0.9 APTT 24.5 Fibrinogen 405 Vital signs: Vital Signs - 24 hr 12/29/24 23:19 12/29/24 23:30 12/30/24 01:33 Temperature Pulse Rate 79 79 Respiratory Rate Blood Pressure 112/56 L 109/68 Pulse Oximetry 98 Oxygen Delivery 12/30/24 01:34 12/30/24 01:38 12/30/24 01:38 Temperature 98.8 F 98.8 F Pulse Rate 72 74 Respiratory Rate 18 Blood Pressure 111/48 L 111/48 L Pulse Oximetry 99 98 Oxygen Delivery 12/30/24 01:43 12/30/24 01:48 12/30/24 01:53 Temperature Pulse Rate Respiratory Rate Blood Pressure Pulse Oximetry 97 97 98 Oxygen Delivery 12/30/24 01:58 12/30/24 04:02 12/30/24 04:03 Temperature 98.7 F Pulse Rate 70 Respiratory Rate Blood Pressure 94/51 L Pulse Oximetry 98 Oxygen Delivery Room Air 12/30/24 04:03 12/30/24 04:07 12/30/24 04:12 Temperature 98.7 F Pulse Rate 75 Respiratory Rate 18 Blood Pressure 94/51 L Pulse Oximetry 98 100 100 Oxygen Delivery 12/30/24 04:17 12/30/24 04:22 12/30/24 04:27 Temperature Pulse Rate Respiratory Rate Blood Pressure Pulse Oximetry 100 100 99 Oxygen Delivery 12/30/24 04:32 12/30/24 06:23 12/30/24 06:24 Temperature Pulse Rate 75 Respiratory Rate Blood Pressure 91/54 L Pulse Oximetry 100 98 Oxygen Delivery 12/30/24 06:24 12/30/24 06:26 12/30/24 06:31 Temperature 97.1 F L Pulse Rate Respiratory Rate 16 Blood Pressure Pulse Oximetry 100 100 Oxygen Delivery 12/30/24 06:36 12/30/24 06:41 12/30/24 06:46 Temperature Pulse Rate Respiratory Rate Blood Pressure Pulse Oximetry 100 100 100 Oxygen Delivery 12/30/24 06:51 12/30/24 06:56 Temperature Pulse Rate Respiratory Rate Blood Pressure Pulse Oximetry 100 100 Oxygen Delivery Final Diagnosis (1) Low lying placenta with hemorrhage in second trimester, antepartum: Code(s): O44.52 - Low lying placenta with hemorrhage, second trimester Status: Acute Plan: - passed small clot prior to arrival to L&D; no further bleeding during overnight stay - OB US ordered to check placenta/cervix/brenda - plan for discharge home after US as long as US normal - discussed pelvic rest, no lifting, strict L&D return precautions
--- NOTE | 2024-12-30 07:25 | PC.NURSE ---
Pt instructed in PO intake to fill bladder prior to U/S.
--- NOTE | 2024-12-30 09:26 | PC.NURSE ---
Dr. Hernández informed of U/S report including placenta covers entire cervical os, QUINN 10.4 cm, cervical length of 5.6 cm, and baby is transverse. Discharge instructions received.
== END 2024-12-30 09:42 | disposition home or self-care (01) ==
PROVIDERS: Admitting Provider Obstetrics & Gynecology; Visit Provider Obstetrics & Gynecology
DX: O44.52 Low lying placenta with hemorrhage, second trimester (principal); Z3A.26 26 weeks gestation of pregnancy
CPT/HCPCS: 36415; 76815; 85025; 85384; 85610; 85730; G0378; G0379

== ENCOUNTER 2025-01-08 07:32 | Outpatient (CLI) | payer OTHER, BC, SELFPAY ==
--- OUTSIDE RECORDS SUMMARY | 2025-01-08 07:36 | XMS_ITS | Patient Health Record ---
Author Organization [facility] Address [address] [facility] [address] [place] [address] Care Team Providers Care Animal Therapist Name Role Phone MODESTO SHIELA Primary Care Provider Unavailab radha Farhan Emery Unavailable [phone] Allergies No Known Allergies Results Component Value Reference Range Notes T4, FREE Reviewed date:03/02/2024 01:57:55 PM Interpretation:Normal Performing Lab: Notes/Report: Normal T4,Free(Direct) 1.07 TSH Reviewed date:03/02/2024 01:58:03 PM Interpretation:Normal Performing Lab: Notes/Report: Normal TSH 1.790 TSH Reviewed date:08/03/2024 04:28:14 PM Interpretation: Performing Lab: Notes/Report: TSH 0.712 TSH Reviewed date:08/27/2024 12:44:18 PM Interpretation:Normal Performing Lab: Notes/Report: Normal TSH, 0.653 TSH Reviewed date:09/28/2024 04:32:55 PM Interpretation:change to 137 mcg Performing Lab: Notes/Report: change to 137 mcg TSH, 5.330 TSH Reviewed date:12/01/2024 03:58:01 PM Interpretation:Normal Performing [...] Notes Problem Malignant tumor of thyroid gland ([id number]) Malignant neoplasm of thyroid gland (C73) Active confirmed Problem Postsurgical hypothyroidism (20506880) Postsurgical hypothyroidism (E89.0) Active confirmed Vital Signs Blood pressure diastolic 66 mm Hg 03/20/2024 Height 62 in 03/20/2024 Blood pressure systolic 112 mm Hg 03/20/2024 Weight 136.4 lbs 03/20/2024 BMI 24.95 kg/m2 03/20/2024 Encounters Encounter Location Date Provider Diagnosis [place] [address] [place] [address] 03/20/2024 Farhan Raju Postsurgical hypothyroidism E89.0 and Malignant neoplasm of thyroid gland C73 [place] [address] [place] [address] 02/26/2024 [place] [place] [address] 03/02/2024 [facility] Postsurgical hypothyroidism E89.0 [place] [address] [place] [address] 04/13/2024 [place] [address] [place] [address] 07/26/2024 [place] [address] [place] [address] 08/27/2024 [place] [address] [place] [address] 09/28/2024 Farhan Raj Postsurgical hypothyroidism E89.0 [place] [place] [address] 10/28/2024 [place] [place] [address] 11/26/2024 [facility] [address] [facility] [address] [place] [address] 12/22/2024 Farhan Raju Postsurgical hypothyroidism E89.0 Assessments Encounter Date Diagnosis (ICD Code) Assessment Notes Treatment Notes Treatment Clinical Notes Section Notes 03/02/2024 Postsurgical hypothyroidism (ICD-10 - E89.0) 03/20/2024 Postsurgical hypothyroidism (ICD-10 - E89.0) Old records reviewed THyroidectomy Jan 2018. Jan 2018: Start LT4 100 mcg WIll schedule BAKER Rx based on pathology. Plannng to do in [place]. 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 May 2018: Thyroglobulin < 0.7, Ab wnl Jun 2019:Thyroglobuli n 0.2 unstimulated Mar 2020: Thyroglobulin 5.8 stimulated level (with high TSH) at [facility], [place], PT received third BAKER [...] Insured Coverage Start Date Coverage End Date [employer] [address] [place] [address] [id number] MERE BERGER Child - Insured does not [...]
[2025-01-08 08:58] LABS: Hematocrit 39.6 % (37.0-47.0); Hemoglobin 13.1 g/dL (12.0-15.0); Mean Corpuscular HGB Conc 33.1 g/dl (32-36); Mean Corpuscular Hemoglobin 30.3 pg (26-34); Mean Corpuscular Volume 91.7 fl (80-100); Platelet Count Result 217 k/mm3 (150-375); Red Blood Count 4.32 M/mm3 (4.2-5.4); White Blood Count 11.0 K/mm3 (4.5-10.0)
[2025-01-08 09:19] LABS: Glucose 1 Hour PP 50gm Dose 74 mg/dL
[2025-01-08 09:51] LABS: Thyroid Stimulating Hormone 0.864 uIU/mL (0.465-4.680)
[2025-01-08 09:57] LABS: HIV 1/2 Ab P24 Ag Result Negative (Negative)
[2025-01-08 16:54] LABS: Syphilis IgG/IgM Antibody Non-Reactive (Nonreactive)
== END 2025-01-08 07:33 | disposition home or self-care (01) ==
PROVIDERS: Referring Provider Internal Medicine Endocrinology, Diabetes & Metabolism; Visit Provider Student in an Organized Health Care Education/Training Program
DX: Z34.90 Encounter for supervision of normal pregnancy, unspecified, unspecified trimester (principal); Z3A.00 Weeks of gestation of pregnancy not specified; E89.0 Postprocedural hypothyroidism; C73 Malignant neoplasm of thyroid gland
CPT/HCPCS: 36415; 82947; 84443; 85027; 86593; 86703; G0432

== ENCOUNTER 2025-02-20 18:35 | Observation (INO) | payer BC, SELFPAY ==
--- NOTE | ~2025-02-20 | US_ITS ---
EXAMINATION: US OB limited DATE: 02/20/2025 21:20 INDICATION: Placenta check. Placenta previa TECHNIQUE: Real-time transabdominal obstetric ultrasound. FINDINGS: The placenta is anterior without placenta previa. Cervical length measures 4.95 cm cardiac activity and movement is noted with a heart rate of 154 beats per minute. The amniotic fluid volume is 10.81. Marginal placenta versus placenta previa. IMPRESSION: 1. Single living fetus 2. Marginal placenta versus placenta previa. Follow-up is recommended. Reviewed, dictated and finalized at location Q.
[2025-02-20 19:36] LABS: Hematocrit 34.6 % (37.0-47.0); Hemoglobin 11.5 g/dL (12.0-15.0); Immature Granulocyte Percent A 1.3 % (0-0.5); Immature Platelet Fraction Pct 8.7 % (0.9-11.2); Lymphocytes Absolute Auto 2.52 K/mm3 (0.9-3.2); Mean Corpuscular HGB Conc 33.2 g/dl (32-36); Mean Corpuscular Hemoglobin 29.7 pg (26-34); Mean Corpuscular Volume 89.4 fl (80-100); Nucleated Red Blood Cells Absolute Auto 0.000 K/mm3 (0.0-0.012); Nucleated Red Blood Cells Perc 0.0 % (0.0-0.2); Platelet Count Result 129 k/mm3 (150-375); Red Blood Count 3.87 M/mm3 (4.2-5.4); White Blood Count 9.9 K/mm3 (4.5-10.0)
[2025-02-20 22:55] VITALS: BP 118/74; PULSE 90
--- NOTE | 2025-03-14 15:41 | P.PNOB_ITS ---
OB - Triage/Final Diagnosis Visit Information Comments/Additional reasons for admission: I have assessed the risk for this patient, Yaneth Escoto, and determined that she would benefit from observation care. Evaluation Laboratory results: Laboratory Tests 02/20/25 19:29 WBC 9.9 RBC 3.87 L Hgb 11.5 L Hct 34.6 L MCV 89.4 MCH 29.7 MCHC 33.2 RDW 13.2 Plt Count 129 L MPV 11.5 H Immature Gran % (Auto) 1.3 H Neut % (Auto) 64.9 Lymph % (Auto) 25.6 [place] % (Auto) 6.9 Eos % (Auto) 1.0 Baso % (Auto) 0.3 Lymph # (Auto) 2.52 [place] # (Auto) 0.7 H Eos # (Auto) 0.1 Baso # (Auto) 0.0 Abs Immat Gran (auto) 0.13 H Absolute Neuts (auto) 6.4 Absolute Nucleated RBC 0.000 Nucleated RBC % 0.0 % Immature Plt Fraction 8.7 Final Diagnosis (1) Third trimester bleeding: Code(s): O46.93 - Antepartum hemorrhage, unspecified, third trimester Status: Acute
== END 2025-02-20 23:06 | disposition home or self-care (01) ==
PROVIDERS: Admitting Provider Obstetrics & Gynecology; Visit Provider Obstetrics & Gynecology
DX: O46.93 Antepartum hemorrhage, unspecified, third trimester (principal); Z3A.33 33 weeks gestation of pregnancy
CPT/HCPCS: 36415; 76815; 85025; 85055; G0378; G0379

== ENCOUNTER 2025-03-10 10:42 | Outpatient (CLI) | payer BC, SELFPAY ==
[2025-03-10 11:09] LABS: Hematocrit 34.6 % (37.0-47.0); Hemoglobin 11.3 g/dL (12.0-15.0); Immature Granulocyte Percent A 1.5 % (0-0.5); Lymphocytes Absolute Auto 2.16 K/mm3 (0.9-3.2); Mean Corpuscular HGB Conc 32.7 g/dl (32-36); Mean Corpuscular Hemoglobin 28.9 pg (26-34); Mean Corpuscular Volume 88.5 fl (80-100); Nucleated Red Blood Cells Absolute Auto 0.000 K/mm3 (0.0-0.012); Nucleated Red Blood Cells Perc 0.0 % (0.0-0.2); Platelet Count Result 187 k/mm3 (150-375); Red Blood Count 3.91 M/mm3 (4.2-5.4); White Blood Count 10.2 K/mm3 (4.5-10.0)
--- OUTSIDE RECORDS SUMMARY | 2025-03-10 11:34 | XMS_ITS | Patient Health Record ---
Author Organization [facility] Address [address] [facility] [address] [place] [address] Care Team Providers Care Outside Energy Sales Representatives Name Role Phone MODESTO SHIELA Primary Care Provider Unavailab radha Farhan Emery Unavailable [phone] Allergies No Known Allergies Results Component Value Reference Range Notes TSH Reviewed date:12/01/2024 03:58:01 PM Interpretation:Normal Performing Lab: Notes/Report: Normal TSH, 2.150 TSH Reviewed date:09/28/2024 04:32:55 PM Interpretation:change to 137 mcg Performing Lab: Notes/Report: change to 137 mcg TSH, 5.330 TSH Reviewed date:08/03/2024 04:28:14 PM Interpretation: Performing Lab: Notes/Report: TSH 0.712 TSH Reviewed date:01/11/2025 11:22:57 AM Interpretation:Normal Performing Lab: Notes/Report: Normal TSH, 0.864 TSH Reviewed date:08/27/2024 12:44:18 PM Interpretation:Normal Performing [...] Notes Problem Malignant tumor of thyroid gland (687841762) Malignant neoplasm of thyroid gland (C73) Active confirmed Problem Postsurgical hypothyroidism (07886842) Postsurgical hypothyroidism (E89.0) Active confirmed Vital Signs Blood pressure diastolic 66 mm Hg 03/20/2024 Height 62 in 03/20/2024 Blood pressure systolic 112 mm Hg 03/20/2024 Weight 136.4 lbs 03/20/2024 BMI 24.95 kg/m2 03/20/2024 Encounters Encounter Location Date Provider Diagnosis [address] [address] 03/20/2024 [facility] Raju Postsurgical hypothyroidism E89.0 and Malignant neoplasm of thyroid gland C73 [address] [address] 04/13/[address] [address] 07/26/[address] [address] 08/27/[address] [address] 09/28/2024 Farhan Raju Postsurgical hypothyroidism E89.[address] [address] 10/28/[address] [address] 11/26/2024 [facility] Endo [facility] Obesity Med [address] [address] 12/22/2024 Farhan Raju Postsurgical hypothyroidism E89.[address] [address] [facility] [address] [address] 02/16/2025 Farhan Raju Assessments Encounter Date Diagnosis (ICD Code) Assessment Notes Treatment Notes Treatment Clinical Notes Section Notes 09/28/2024 Postsurgical hypothyroidism (ICD-10 - E89.0) 12/22/2024 Postsurgical hypothyroidism (ICD-10 - E89.0) 03/20/2024 Postsurgical hypothyroidism (ICD-10 - E89.0) Old records reviewed THyroidectomy Jan 2018. Jan 2018: Start LT4 100 mcg WIll schedule BAKER Rx based on pathology. Plannng to do in [place]. 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, vascular invasion, pT1b, Classic Variant 04/2018 BAKER RX, Apr 2019, Apr 2020 with in [facility] May 2018: Thyroglobulin < 0.7, Ab wnl Jun 2019:Thyroglobuli n 0.2 unstimulated Mar 2020: Thyroglobulin 5.8 stimulated level (with high TSH) at [facility], [place], PT received third BAKER Rx TSH goal < 0.1 till Apr: Patient 12 weeks post , stopped breast feeding 6 weeks ago Mar: 9 weeks now Plan Of Treatment Pending Test Test Name Order Date TSH 03/20/2024 TSH 10/26/2022 Thyroglobulin Quantitative and Antibody 03/20/2024 Thyroglobulin Quantitative and Antibody 05/21/2018 T4, FREE 03/20/2024 Insurance Providers Payer Name Payer Address Payer Phone Subscriber Number Group Number Insured Name Patient Relationship to Insured Coverage Start Date Coverage End Date [employer] [address] [place] [address] [id number] MERE BERGER Child - Insured does not [...]
--- OUTSIDE RECORDS SUMMARY | 2025-03-10 11:34 | XMS_ITS | Clinical Summary ---
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 This disclosure is being madepursuant to the Care Everywhere program and may not contain all information available regarding this patient. Last updated 18.[facility] [employer] Allergies No known active allergies Medications * Be aware that medications may not be up to date on this document. Alwaysverify current medications with the patient. Levothyroxine Sodium (SYNTHROID PO) Activ e Vit-Fe Fumarate-FA ( vitamin) 28-0.8 MG tablet Take 1 (one) tablet by mouth once daily Active Levonorg-Eth Estrad Triphasic (ENPRESSE-28 PO) 02/23/20 25 Discontinu ed(List Clean-Up) Active Problems Problem Noted Date Diagnosed Date Placenta previa antepartum 02/21/2025 Estimated Date of Delivery Comme nts Yes 04/05/2025 Based on Patient Reported, LMP/U/S Encounters Date Type Department Care Team Description 02/22/2025 Telephone [facility] MATERNAL/ EVALUATION UNIT [address] [place] [address] [address] [place] [address] Quin Mo RN Hospitalization; Hospital Follow-up 02/21/2025 8:04 PM CDT - 02/22/2025 1:47 PM CDT Hospital Encounter [facility] 5E ANTEPARTUM/MOTHER BABY [address] [place] [address] César Patterson MD Discharge Disposition: Home or Self Care 02/21/2025 Travel from Last 3 Months Social History Tobacco Use Types Packs/Day Years Used Date Smoking Tobacco: Never Smokeless Tobacco: Never Alcohol Use Standard Drinks/Week Comments Not Currently 0 (1 standard drink = 0.6 oz pur e alcohol) Overall Financial Resource Strain (CARDIA) Answe r Date Recorded How hard is it for you to pa y for the very basics like food, housing, medical care, and heating? Not hard at all 02/21/2025 [facility] - Occupational Stress Questionnaire Answer Date Recorded Do you feel stress - tense, restless, nervous, or anxious, or unable to sleep at night because your mind is troubled all the time - these days? Not at all 02/21/2025 Hunger Vital Sign Answer Date Recorded Within the past 12 months, y ou worried that your food would run out before you got the money to buy more. Never true 02/22/20 25 Within the past 12 months, t he food you bought just didn't last and you didn't have money to get more. Never true 02/21/2025 PRAPARE - Transportation Answer Date Re corded In the past 12 months, has l ack of transportation kept you from medical appointments or from getting medications? No 12/2024 In the past 12 months, has l ack of transportation kept you from meetings, work, or from getting things needed for daily living? No 02/21/2025 Housing Stability Vital Sign Answer Marcell e Recorded In the last 12 months, was t here a time when you were not able to pay the mortgage or rent on time? No 02/21/2025 In the past 12 months, how m any times have you moved where you were living? 0 02/21/2025 At any time in the past 12 m ont, were you homeless or living in a halfway (including now)? No 02/21/2025 Estimated Date of Delivery Comme nts Yes 04/05/2025 Based on Patient Reported, LMP/U/S Sex and Gender Information Value Date Recorded Sex Assigned at Female 02/21/2025 9:01 PM CDT Legal Sex Female 7:32 PM [employer]HIC[employer] Gender Identity Female 02/21/2025 9:04 PM CDT Sexual Orientation Not on file Last Filed Vital Signs Vital Sign Reading Time Taken Comments Blood Pressure 125/80 02/22/2025 7:55 AM CDT Pulse 89 02/22/2025 7:55 AM CDT Temperature 36.6 C (97.8 F) 02/22/2025 7:55 AM CDT Respiratory Rate 18 02/22/2025 7:55 AM CDT Oxygen Saturation 98% 02/21/2025 11:50 PM CDT Inhaled Oxygen Concentration - - Weight 76.2 kg (168 lb) 02/21/2025 8:05 PM CDT Height 157.5 cm (5' 2) 02/21/2025 8:05 PM CDT Body Mass Index 30.73 02/21/2025 8:05 PM CDT Plan of Treatment Upcoming Encounters Date Type Department Care Team (Late st Contact Info) Description 04/06/2025 Hospital Encounter [facility] [address] [place] [address] Health Maintenance Due Date Last Done Comments HIV SCREENING 2009 HEPATITIS C SCREENING 09/04/2012 DTAP/TDAP/TD VACCINES (1 - Tdap) 2013 HEPATITIS B VACCINE (1 of 3 - 19+ 3-dose series) 2013 PAP SMEAR 09/10/2015 HPV VACCINE (1 - 3-dose SCDM series) 2021 DEPRESSION SCREENING 06/17/2024 OB-ONE HOUR GLUCOSE 12/28/2024 OB-TDAP CURRENT 01/04/2025 COVID-19 VACCINE (3 - 2024-2 6 season) 2025 06/27/2020, 06/06/2020 INFLUENZA VACCINE (#1) 2025 Respiratory Syncytial Virus (RSV) Vaccine Pt: or over 60 yrs (1 - Risk 1-dose series) 02/15/2025 OB-GROUP B STREP SCREEN 03/01/2025 ZOSTER VACCINE (1 of 2) 2044 HIB VACCINE Aged Out No longer eligi ble based on patient's age to complete this topic MENINGOCOCCAL (Group B) VACCINE SHARED DECISION-MAKING Aged Out No longer eligible based on patient's age to complete this topic MENINGOCOCCAL GROUPS A/C/Y/W VACCINE Aged Out No longer eligible b ased on patient's age to complete this topic PNEUMOCOCCAL VACCINE Aged Out No long er eligible based on patient's age to complete this topic Procedures Procedure Name Priority Date/Time Associated Diagnosis Comments IMAGING/RADIOLOGY/XRA Y RESULTS ORDER 02/23/2025 6:17 PM CDT SONOGRAM - COMPLETE Routine 02/22/2025 9 :12 AM CDT BLOOD TYPE VERIFICATION Routine 02/21/2025 11:03 PM CDT PROTEIN URINE QUALITATIVE AUTO Routine 02/21/2025 11:03 PM CDT Placenta previa antepartum (HCC) KETONES QUALITATIVE URINE AUTO Routine 02/21/2025 11:03 PM CDT Placenta previa antepartum (HCC) TYPE + SCREEN PANEL Routine 02/21/2025 1 0:21 PM CDT COAGULATION PANEL W D-DIMER STAT 02/21/2025 10:21 PM CDT Placenta previa antepartum (HCC) CBC W AUTO DIFFERENTIAL Routine 02/21/2025 10:21 PM CDT Placenta previa antepartum (HCC) from Last 3 Months Results * IMAGING/RADIOLOGY/XRAY RESULTS ORDER (02/23/2025 6:17 PM CDT) Anatomical Region Laterality Modality Other Narrative 02/23/2025 6:17 PM CDT Ordered by an unspecified provider. us Scanned Document IMAGING Final Result * Sonogram - Complete (02/22/2025 9:12 AM CDT) Linked Results Indication ======== Placenta previa w/bleeding complete vs marginal previa on outside scan anatomy evaluation Hypothyroidism complicating History ====== OB History 3. Para 1 1. missed 2. live 2022. Weight 2,778 g. Sex of child: male. Details: Vaginal delivery Lab Tests Test Date Result NIPT Low risk, Female Maternal Assessment Physical Exam Height 157 cm, 5 ft 2 in. Weight 76 kg, 168 lb. Initial weight 61 kg, 135 lb. BMI 30.73 kg/m . Initial BMI 24.69 kg/m . Weight gain 15 kg, 33 lb Method ====== Transabdominal and transvaginal ultrasound examination. View: Suboptimal view: limited by late gestational age ========= Chery . Number of fetuses: 1 Dating ====== Date Details Gest. age RICK Stated RICK 34 w + 0 d 04/05/2025 U/S 02/22/2025 based upon AC, BPD, Femur, HC 33 w + 5 d 04/07/2025 Assigned dating based on stated RICK, selected on 02/22/2025 34 w + 0 d 04/05/2025 General Evaluation Cardiac activity present. FHR 151 bpm. Presentation: transverse Placenta: Placental site: anterior, previa Umbilical cord: Cord vessels: 3 vessel cord. Insertion site: normal insertion Amniotic fluid: Amount of AF: normal. MVP 5.3 cm. QUINN 13.4 cm. Q1 2.7 cm, Q2 5.3 cm, Q3 1.5 cm, Q4 3.9 cm Biometry BPD 84.8 mm 34w 1d 52% Hadlock HC 313.3 mm 35w 1d 41% Hadlock Cerebellum tr 47.4 mm 83% [place] AC 290.8 mm 33w 1d 27% Hadlock Femur 62.3 mm 32w 2d 7% Hadlock Humerus 57.1 mm 33w 1d 36% Ramona HC / AC 1.08 -/- Hadlock Weight Calculation: EFW 2,129 g 22% Hadlock EFW (lb,oz) 4 lb 11 oz EFW by Hadlock ([id number]) Head / Face / Neck Biometry: CM 8.8 mm 84% Nicolaides appropriate Growth Overview Exam date GA BPD (mm) HC (mm) AC (mm) FL (mm) HL (mm) EFW (g) 02/22/2025 34w 0d 84.8 52% 313.3 41% 290.8 27% 62.3 7% 57.1 36% 2129 22% Anatomy The following structures appear normal: Head / Neck Cranium. Lateral ventricles. Choroid plexus. Midline falx. Cavum septi pellucidi. Cerebellum. Cisterna magna. Thalami. Face Lips. Profile. Nose. Nasal bone. Heart / Thorax 3-vessel view. 7-qzluau-fhowvbu view. Situs. Bicaval view. Great vessels. Diaphragm. Abdomen Cord insertion. Stomach. Kidneys. Bladder. Bowel. Genitals. Spine Cervical spine. Thoracic spine. Lumbar spine. Sacral spine. Extremities / Skeleton Right arm. Legs. Feet. The following structures could not be adequately visualized: Face Orbits. Heart / Thorax 4-chamber view. RVOT view. LVOT view. Aortic arch view. Ductal arch view. Right lung. Left lung. Extremities / Skeleton Hands. Left arm. Maternal Structures Cervix reassuring Approach - Transvaginal: Cervical length 4.18 cm Right Ovary Normal Left Ovary Normal Impression ========= Single live intrauterine at 34w0d The size is AGA The amniotic fluid volume is normal The transvaginal cervical length is WNL COMPLETE ANTERIOR PLACENTA PREVIA Incomplete anatomic survey No major malformations were seen within the limitations of ultrasound. Comment ======== ultrasound alone cannot detect all structural, genetic, or functional , placental, or maternal abnormalities The patient was inpatient at the time of the study Follow-up ======== Follow up ultrasound as clinically indicated and per inpatient team Pelvic rest Coding ====== Diagnoses O99.283, E03.9: Other endocrine, nutritional and metabolic diseases complicating , Hypothyroidism Z36.3: Encounter for screening for malformations O44.13: Complete placenta previa with hemorrhage Procedures 03144: US Preg Uterus Detailed 63289: [facility] Anatomical Region Laterality Modality Other 02/22/2025 9:12 AM CDT César Patterson MD [facility] ORDER[facility] Edited Result - Final * BLOOD TYPE VERIFICATION (02/21/2025 11:03 PM CDT) ABO Rh A POS 02/21/2025 11:51 PM CDT [facility] BLOOD BANK LAB Blood Bank BLOOD SPECIMEN / Unknown Venipuncture / Unknown 02/21/2025 11:03 PM CDT 02/21/2025 11:33 PM CDT César Patterson MD LAB - BLOOD BANK ORDERABLES Fi nal Result Performing Organization Address City/[facility]/ZIP Co de Phone Number [facility] BLOOD BANK LAB [address] [place] [address] * PROTEIN URINE QUALITATIVE AUTO (02/21/2025 11:03 PM CDT) Protein UA Negative Negative 02/22/2025 12:13 AM CDT [facility] Urine URINE / Unknown Collection / Unknown 02/21/2025 11:03 PM CDT 02/22/2025 12:06 AM CDT César Patterson MD LAB - URINALYSIS ORDERABLES Fi nal Result [facility] [address] [place] [address] * (ABNORMAL) KETONES QUALITATIVE URINE AUTO (02/21/2025 11:03 PM CDT) Ketone UA 1+(A) Negative 02/22/2025 12:13 AM CDT [facility] Urine URINE / Unknown Collection / Unknown 02/21/2025 11:03 PM CDT 02/22/2025 12:06 AM CDT César Patterson MD LAB - URINALYSIS ORDERABLES Fi nal Result Performing Organization Address City/[facility]/ZIP Co de Phone Number [facility] [address] [place] [address] * TYPE + SCREEN PANEL (02/21/2025 10:21 PM CDT) ABO Rh A POS 02/21/2025 10:59 PM CDT [facility] Comment:No history; collect retype. Antibody Screen NEG 10:59 PM CDT [facility] BLOOD B[facility] LAB Blood Bank BLOOD SPECIMEN / Unknown Venipuncture / Unknown 02/21/2025 10:21 PM CDT 02/21/2025 10:28 PM CDT César Patterson MD LAB - BLOOD BANK ORDERABLES Fi nal Result Performing Organization Address [facility] Co de Phone Number [facility] BLOOD BANK LAB [address] [place] [address] * (ABNORMAL) COAGULATION PANEL W D-DIMER (02/21/2025 10:21 PM CDT) PT 12.7 12.1 - 14.8 sec 02/21/2025 11:18 PM CDT [facility] INR 0.9 0.9 - 1.1 02/21/2025 11:18 PM CDT [facility] PTT 21.4(L) 23.0 - 38.4 sec 02/21/2025 11:18 PM CDT [facility] Fibrinogen 449(H) 200 - 400 mg/dL 02/21/2025 11:18 PM CDT [facility] D-Dimer 0.91(H) 0.27 - 0.50 ug/mL FEU 02/21/2025 11:18 PM CDT [facility] Platelet Count 180 150 - 420 x10E9/L 02/21/2025 11:18 PM CDT [facility] Blood BLOOD SPECIMEN / Unknown Venipuncture / Unknown 02/21/2025 10:21 PM CDT 02/21/2025 11:[address] [facility] LAB[facility] - 02/21/2025 11:18 PM CDT Conventional Warfarin Anticoagulant Therapy INR Reference Range: 2.0-3.0 Intensive Warfarin Anticoagulant Therapy INR Reference Range: 2.5-3.5 Heparin Therapeutic Range for PTT: 69.0 - 110.0 seconds. In the absence of clinical symptoms, a value less than or equal to 0.5 mcg/mL FEU significantly decreases the probability of PE/DVT (negative predictive value >95%). 1 mcg/ml FEU = 1 Fibrinogen Equivalent Unit (approximates 0.5 mcg/mL of D- dimer). ISTH DIAGNOSTIC SCORING SYSTEM FOR DIC ---- Score 0 1 2 3 Platelet Count (x10^3/uL) > 100 <100 < 50 N/A PT Prolongation above Upper limit of normal 0-3 3-6 > 6 N/A Range (seconds) Fibrinogen (mg/dL) >100 < 100 N/A N/A D-Dimer (mcg/mL FEU) < 0.50 N/A 0.50-5.0 > 5 Calculate Cumulative Score: > or = 5: compatible with overt DIC < 5: suggestive for non-overt DIC N/A = Non applicable Reference: Br. J. Haematol. 145:24-33,2008. us César Patterson MD LAB - COAGULATION ORDERABLES F inal Result [facility] [address] [place] [address] * (ABNORMAL) CBC W AUTO DIFFERENTIAL (02/21/2025 10:21 PM CDT) WBC 10.4 4.0 - 10.7 x10E9/L 02/21/2025 11:08 PM CDT [facility] RBC Count 3.59(L) 3.90 - 5.20 x10E12/L 02/21/2025 11:08 PM CDT [facility] Hemoglobin 10.8(L) 11.9 - 15.8 g/dL 02/21/2025 11:08 PM CDT [facility] Hematocrit 31.3(L) 34.8 - 46.1 % 02/21/2025 11:08 PM CDT [facility] MCV 87.2 80.0 - 98.0 fL 02/21/2025 11:08 PM CDT [facility] MCH 30.1 26.7 - 33.6 pg 02/21/2025 11:08 PM [facility] MCHC 34.5 31.7 - 36.3 g/dL 02/21/2025 11:08 PM [facility] RDW-CV 13.0 11.3 - 14.8 % 02/21/2025 11:08 PM [facility] Platelet Count 176 150 - 420 x10E9/L 02/21/2025 11:08 PM [facility] MPV 11.4 7.8 - 11.4 fL 02/21/2025 11:08 PM [facility] Neutrophil % 64.9 41.0 - 74.0 % 02/21/2025 11:08 PM [facility] Lymphocyte % 25.8 17.0 - 47.0 % 02/21/2025 11:08 PM [facility] Monocyte % 6.9 3.0 - 11.0 % 02/21/2025 11:08 PM [facility] Eosinophil % 0.8 0.0 - 7.0 % 02/21/2025 11:08 PM [facility] Basophil % 0.3 0.0 - 1.6 % 02/21/2025 11:08 PM [facility] Immature Granulocytes % 1.3(H) 0.0 - 1.0 % 02/21/2025 11:08 PM [facility] Neutrophil Absolute 6.74 1.60 - 7.50 x10E9/L 02/21/2025 11:08 PM [facility] Lymphocyte Absolute 2.67 1.00 - 4.40 x10E9/L 02/21/2025 11:08 PM [facility] Monocyte Absolute 0.71 0.15 - 1.00 x10E9/L 02/21/2025 11:08 PM [facility] Eosinophil Absolute 0.08 0.00 - 0.60 x10E9/L 02/21/2025 11:08 PM [facility] Basophil Absolute 0.03 0.00 - 0.13 x10E9/L 02/21/2025 11:08 PM [facility] Blood BLOOD SPECIMEN / Unknown Venipuncture / Unknown 02/21/2025 10:21 PM CDT 02/21/2025 11:05 PM CDT us César Patterson MD LAB - HEMATOLOGY ORDERABLES Fi nal Result [facility] [address] [place] [address] from Last 3 [place] [address] [employer] SELF PAY NO INSURANCE Member Subscriber Plan / Payer (Ef fective for All Dates) Name:Yaneth Spicer Member ID:Not on file Relation to Subscriber:Not on file Name:YANETH SPICER Subscriber ID:Not on file (Home) Address: [address] [place] [address] [place] [address] Payer ID:Not on file Group ID:Not on file Type:Self Pay Address: [facility] [place] [place] Address: [address] [place] [address] ANTHEM * Guarantor: Yaneth Spicer Account Type Relation to Patient Date of Phone Billing Address Personal/Family Spouse Advance Directives * Full Code (Latest Code Status on File) Date Activated Date Inactivated Comments 02/21/2025 10:50 PM 02/22/2025 2:53 PM
[2025-03-10 11:57] LABS: Syphilis IgG/IgM Antibody Non-Reactive (Nonreactive)
== END 2025-03-10 10:43 | disposition home or self-care (01) ==
LOC: ANHLAB 10:44
PROVIDERS: Visit Provider Student in an Organized Health Care Education/Training Program
DX: Z34.93 Encounter for supervision of normal pregnancy, unspecified, third trimester (principal); Z3A.00 Weeks of gestation of pregnancy not specified
CPT/HCPCS: 36415; 85025; 86593; 86850; 86900; 86901

== ENCOUNTER 2025-03-11 09:57 | Inpatient (IN) | payer BC, SELFPAY ==
[2025-03-11] VITALS (50 sets, daily range): BP systolic 90–122; BP diastolic 54–78; PULSE 62–97; RESP 14–21; TEMP 36.4–37.1; O2SAT 78–100; BMI 30.2
--- OUTSIDE RECORDS SUMMARY | 2025-03-11 01:31 | XMS_ITS | Clinical Summary ---
Author Organization [facility] [employer] Address [address] [place] [address] Care Team Providers Care Per Diem Interpreter Name Role Phone Unavailable Primary Care Provider Unavailabl e Source Comments [facility] [employer],non-owned Affiliates and Associated Physician Practices is amultiple site organization consisting of ambulatory clinics and hospital sitesin [place], [place], [place] and [place]. This disclosure is being madepursuant to the Care Everywhere program and may not contain all information available regarding this patient. Last updated 18.[facility] [employer] Allergies No known active allergies Medications * [...] Type Department Care Team Description 02/22/2025 Telephone [facility] MATERNAL/ EVALUATION UNIT [address] [place] [address] [address] [place] [address] Quin Mo RN Hospitalization; Hospital Follow-up 02/21/2025 8:04 PM CDT - 02/22/2025 1:47 PM CDT Hospital Encounter [facility] 5E ANTEPARTUM/MOTHER BABY [address] [place] [address] César Patterson MD Discharge Disposition: Home or [...] and heating? Not hard at all 02/21/2025 [facility] [place] [facility] Occupat ional Health - Occupational Stress [...] were you homeless or living in a group home (including now)? 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 Heart / Thorax 3-vessel view. 6-xwvyop-oluinko view. Situs. Bicaval view. Great vessels. Diaphragm. [...] O44.13: Complete placenta previa with hemorrhage Procedures 85126: US Preg Uterus Detailed 74607: US Preg [facility] Anatomical Region Laterality Modality Other 02/22/2025 9:12 AM CDT César Patterson MD [facility] ORDERABLES Edited Result - Final * BLOOD TYPE VERIFICATION (02/21/2025 11:03 PM CDT) ABO Rh A POS 02/21/2025 11:51 PM CDT [facility] BLOOD BANK LAB Blood Bank BLOOD SPECIMEN / Unknown Venipuncture / Unknown 02/21/2025 11:03 PM CDT 02/21/2025 11:33 PM CDT César Patterson MD LAB - BLOOD BANK ORDERABLES Fi nal Result Performing Organization Address City/[facility]/ZIP Co de Phone Number [facility] BLOOD BANK LAB [address] [place] [address] * PROTEIN URINE QUALITATIVE AUTO (02/21/2025 11:03 PM CDT) Protein UA Negative Negative 02/22/2025 12:13 AM CDT [facility] LABOR[facility]ORY Urine URINE / Unknown Collection / Unknown 02/21/2025 11:03 PM CDT 02/22/2025 12:06 AM CDT César Patterson MD LAB - URINALYSIS ORDERABLES Fi nal Result [facility]OR[facility] [address] [place] [address] * (ABNORMAL) KETONES QUALITATIVE URINE AUTO (02/21/2025 11:03 PM CDT) Ketone UA 1+(A) Negative 02/22/2025 12:13 AM CDT [facility] Urine URINE / Unknown Collection / Unknown 02/21/2025 11:03 PM CDT 02/22/2025 12:06 AM CDT César Patterson MD LAB - URINALYSIS ORDERABLES Fi nal Result Performing Organization Address City/[facility]/ZIP Co de Phone Number [facility] LABOR[facility] [address] [place] [address] * TYPE + SCREEN PANEL (02/21/2025 10:21 PM CDT) ABO Rh A POS 02/21/2025 10:59 PM CDT [facility] BLOOD BANK LAB Comment:No history; collect retype. Antibody Screen NEG 10:59 PM CDT [facility] BLOOD BANK LAB Blood Bank BLOOD SPECIMEN / Unknown Venipuncture / Unknown 02/21/2025 10:21 PM CDT 02/21/2025 10:28 PM CDT César Patterson MD LAB - BLOOD BANK ORDERABLES Fi nal Result Performing Organization Address [facility] Co de Phone Number [facility] BLOOD BANK LAB [address] [place] [address] * (ABNORMAL) COAGULATION PANEL W D-DIMER (02/21/2025 10:21 PM CDT) PT 12.7 12.1 - 14.8 sec 02/21/2025 11:18 PM CDT [facility] INR 0.9 0.9 - 1.1 02/21/2025 11:18 PM CDT [facility] PTT 21.4(L) 23.0 - 38.4 sec 02/21/2025 11:18 PM CDT [facility] Fibrinogen 449(H) 200 - 400 mg/dL 02/21/2025 11:18 PM CDT [facility] D-Dimer 0.91(H) 0.27 - 0.50 ug/mL FEU 02/21/2025 11:18 PM CDT [facility] Platelet Count 180 150 - 420 x10E9/L 02/21/2025 11:18 PM CDT [facility] Blood BLOOD SPECIMEN / Unknown Venipuncture / Unknown 02/21/2025 10:21 PM CDT 02/21/2025 11:04 PM CDT [facility] LABORATORY - 02/21/2025 11:18 PM CDT Conventional [...] LAB - COAGULATION ORDERABLES F inal Result [facility] [address] [place] [address] * (ABNORMAL) CBC W AUTO DIFFERENTIAL (02/21/2025 10:21 PM CDT) WBC 10.4 4.0 - 10.7 x10E9/L 02/21/2025 11:08 PM CDT [facility] RBC Count 3.59(L) 3.90 - 5.20 x10E12/L 02/21/2025 11:08 PM CDT [facility] Hemoglobin 10.8(L) 11.9 - 15.8 g/dL 02/21/2025 11:08 PM CDT [facility] Hematocrit 31.3(L) 34.8 - 46.1 % 02/21/2025 11:08 PM CDT [facility] MCV 87.2 80.0 - 98.0 fL 02/21/2025 11:08 PM CDT [facility] MCH 30.1 26.7 - 33.6 pg 02/21/2025 11:08 PM [facility] MCHC 34.5 31.7 - 36.3 g/dL 02/21/2025 11:08 PM [facility] RDW-CV 13.0 11.3 - 14.8 % 02/21/2025 11:08 PM [facility] Platelet Count 176 150 - 420 x10E9/L 02/21/2025 11:08 PM [facility] MPV 11.4 7.8 - 11.4 fL 02/21/2025 11:08 PM [facility] Neutrophil % 64.9 41.0 - 74.0 % 02/21/2025 11:08 PM [facility] Lymphocyte % 25.8 17.0 - 47.0 % 02/21/2025 11:08 PM [facility] Monocyte % 6.9 3.0 - 11.0 % 02/21/2025 11:08 PM [facility] Eosinophil % 0.8 0.0 - 7.0 % 02/21/2025 11:08 PM [facility] Basophil % 0.3 0.0 - 1.6 % 02/21/2025 11:08 PM [facility] Immature Granulocytes % 1.3(H) 0.0 - 1.0 % 02/21/2025 11:08 PM [facility] Neutrophil Absolute 6.74 1.60 - 7.50 x10E9/L 02/21/2025 11:08 PM [facility] Lymphocyte Absolute 2.67 1.00 - 4.40 x10E9/L 02/21/2025 11:08 PM [facility] Monocyte Absolute 0.71 0.15 - 1.00 x10E9/L 02/21/2025 11:08 PM [facility] Eosinophil Absolute 0.08 0.00 - 0.60 x10E9/L 02/21/2025 11:08 PM [facility] Basophil Absolute 0.03 0.00 - 0.13 x10E9/L 02/21/2025 11:08 PM [facility] Blood BLOOD SPECIMEN / Unknown Venipuncture / Unknown 02/21/2025 10:21 PM CDT 02/21/2025 11:05 PM CDT us César Patterson MD LAB - HEMATOLOGY ORDERABLES Fi nal Result [facility] [address] [place] [address] from [place] [address] [employer] [facility] SELF PAY NO INSURANCE Member Subscriber Plan / Payer (Ef fective for All Dates) Name:Yaneth Spicer Member ID:Not on file Relation to Subscriber:Not on file Name:YANETH SPICER Subscriber ID:Not on file (Home) Address: [address] [place] [address] [place] [address] Payer ID:Not on file Group ID:Not on file Type:Self Pay Address: [facility] Address: [address] [place] [address] ANTHEM * Guarantor: Yaneth Spicer Account Type Relation to Patient Date of Phone Billing Address Personal/Family Spouse Advance Directives * Full Code (Latest Code Status on File) Date Activated Date Inactivated Comments 02/21/2025 10:50 PM 02/22/2025 2:53 PM
--- OUTSIDE RECORDS SUMMARY | 2025-03-11 01:31 | XMS_ITS | Patient Health Record ---
Author Organization [facility] Address [address] [facility] [address] [place] [address] Care Team Providers Care Family Court Counsellor Name Role Phone MODESTO SHIELA Primary Care Provider Unavailab radha Farhan Emery Unavailable [phone] Allergies No Known Allergies Results Component Value Reference Range Notes TSH Reviewed date:08/03/2024 04:28:14 PM Interpretation: Performing Lab: Notes/Report: TSH 0.712 TSH Reviewed date:01/11/2025 11:22:57 AM Interpretation:Normal Performing Lab: Notes/Report: Normal TSH, 0.864 TSH Reviewed date:12/01/2024 03:58:01 PM Interpretation:Normal Performing [...] Notes Problem Malignant tumor of thyroid gland (282106072) Malignant neoplasm of thyroid gland (C73) Active confirmed Problem Postsurgical hypothyroidism (38574090) Postsurgical hypothyroidism (E89.0) Active confirmed Vital Signs Blood pressure diastolic 66 mm Hg 03/20/2024 Height 62 in 03/20/2024 Blood pressure systolic 112 mm Hg 03/20/2024 Weight 136.4 lbs 03/20/2024 BMI 24.95 kg/m2 03/20/2024 Encounters Encounter Location Date Provider Diagnosis [address] [address] 03/20/2024 [facility]u Postsurgical hypothyroidism E89.0 and Malignant neoplasm of thyroid gland C73 [address] [address] 04/13/[address] [address] 07/26/[address] [address] 08/27/[address] [address] 09/28/2024 [facility] Raju Postsurgical hypothyroidism E89.[address] [address] 10/28/[address] [address] 11/26/2024 [facility] [address] [address] 12/22/2024 [facility] Raju Postsurgical hypothyroidism E89.[address] [address] [facility] [address] [address] 02/16/2025 [facility] Raju Assessments Encounter Date Diagnosis (ICD Code) Assessment Notes Treatment Notes Treatment Clinical Notes Section Notes 12/22/2024 Postsurgical hypothyroidism (ICD-10 - E89.0) 09/28/2024 Postsurgical hypothyroidism (ICD-10 - E89.0) 03/20/2024 Postsurgical hypothyroidism (ICD-10 - E89.0) Old records reviewed THyroidectomy Jan 2018. Jan 2018: Start LT4 100 mcg WIll schedule BAKER Rx based on pathology. Plannng to do in [place]. 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
--- NOTE | 2025-03-11 09:04 | PM.IMHP ---
H&P: HPI History of Present Illness Date/Time: 03/11/25 09:04 Chief Complaint: Intrauterine at 36w placenta previa hypothyroidism Narrative: 29-year-old who presents at 36 weeks 3 days for primary due to a placenta previa. Review of Systems Cardiovascular: Cardiovascular: Denies chest pain, Denies leg edema, Denies palpitations, Denies dyspnea and Denies dyspnea on exertion Respiratory: Respiratory: Denies cough, Denies dyspnea and Denies dyspnea on exertion Gastrointestinal: Gastrointestinal: Denies abdominal pain, Denies constipation, Denies diarrhea, Denies nausea and Denies vomiting Genitourinary: Genitourinary: Denies hematuria, Denies urinary frequency, Denies dysuria, Denies pelvic pain, Denies urinary incontinence and Denies vaginal discharge Neurologic: Reports system reviewed and no additional complaints, except as documented Psychiatric: Psychiatric: Reports no additional psychiatric complaints Endocrine: Endocrine: Denies palpitations PMFSH Past Medical History Medical History Suppression of menses Encounter for removal of intrauterine contraceptive device Encounter for initial insertion of intrauterine contraceptive device Thyroid cancer Surgical History Surgical History H/O dilation and curettage H/O gynecological procedure Mirena IUD insertion 01/17/23 Mirena IUD removal 12/24/23 History of ankle surgery H/O thyroidectomy Family History Family History (Updated 03/10/25 @ 10:02 by Kendy Trent RN) Other Breast cancer Factor 5 Leiden mutation, heterozygous Other Cerebrovascular accident Heart disease Social History Social History Smoking status: Never smoker Alcohol intake: current Alcohol use details: socially Substance use: never Substance use type: does not use Do You Feel Safe in your Home?: Yes Lack of Transportation: No Lack of Food: Never True Current Housing: I Have Housing Concerned About Future Housing: No Difficulty Paying Gas/Electric Bills: No Difficulty Paying for Meds: No Currently Unemployed: No Education: Associate Degree Difficulty w/ Childcare or Family Care: No Living arrangements: with family Additional living arrangements comments: Occupation/Education: occupation 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 Gender identity (if verbalized by the patient): Female Sexual Orientation (if Verbalized by the Patient): Straight or Heterosexual Spiritual care concerns: No Meds Home Medications and Allergies Home Medications ?Medication ?Instructions ?Recorded ?Confirmed ?Type prenat.vits,tobias,fuw-ajln-aqsxb 1 tablet PO DAILY 07/06/22 03/10/25 History levothyroxine 150 mcg tablet 150 mcg PO DAILY 12/30/24 03/10/25 History Allergies Allergy/AdvReac Type Severity Reaction Status Date / Time No Known Allergies Allergy Verified 03/10/25 09:43 Exam Const: General: no acute distress Eyes: EOM: EOMs intact bilaterally Neck: Neck: supple Thyroid: thyroid normal Chest: Breast/axilla inspection: normal inspection of the breasts Breast/axilla palpation: normal palpation of the breasts, normal palpation of the axillae and no axillary lymphadenopathy Resp: Effort & Inspection: normal respiratory effort Auscultation: clear to auscultation bilaterally Cardio: Rate: regular rate Rhythm: regular rhythm GI: Inspection: non-distended and other (Gravid) GI Palp: Yes Soft to palpation, No Tenderness to palpation present (GI) and No Guarding due to palpation present (GI) Auscultation: normal bowel sounds : Speculum Exam - Vagina: No vaginal bleeding OB/external & speculum: external exam normal; No vaginal bleeding Skin: General skin exam: normal color and no rashes or lesions noted Neuro: Cognition (Neuro): normal cognition Speech: normal speech Extrem: General: normal to inspection Psych: Mental Status: mental status grossly normal Affect: normal affect Assessment and Plan Assessment and plan (1) Supervision of high risk , unspecified, third trimester: Code(s): O09.93 - Supervision of high risk , unspecified, third trimester Status: Acute Assessment and Plan: 29-year-old 011 who presents at 36 weeks 3 days Admit to L&D Routine admission orders labs reviewed Rh positive Plan for primary due to placenta previa (2) Placenta previa affecting delivery: Code(s): O44.00 - Complete placenta previa NOS or without hemorrhage, unspecified trimester Status: Acute (3) Hypothyroid: Code(s): E03.9 - Hypothyroidism, unspecified Status: Acute
[2025-03-11] MEDS: ACETAMINOPHEN 500 MG TABLET 1000 MG PO ×2 (10:16→16:30)
[2025-03-11] MEDS: LACTATED RINGERS 1,000 ML 125 ML IV CONT ×2 (10:24→11:15)
--- NOTE | 2025-03-11 10:45 | LDADM ---
This patient, Yaneth Escoto, was admitted to [facility] on 03/11/25 at 09:57. Plans for section, pain management and were discussed with patient. Patient/family oriented to hospital policies and general routines including ID bracelet, bed and alarms, visiting hours, pain management, procedures, bathroom and other care routines, personal items, smoking policy, room service/diet and guest tray routines, infant security routines, and visiting hours. Patient/Family are encouraged to report perceived risks to care and to ask questions if they do not understand what they are told or what they should do. See OBIX for further documentation.
[2025-03-11] MEDS: SCOPOLAMINE 1 MG PATCH 1 PATCH TRANSDERM (10:57)
--- NOTE | 2025-03-11 11:49 | WPDHPUPDATE1 ---
History and Physical Update Update Date/Time: 03/11/25 11:49 History and Physical has been reviewed, including an updated exam of the patient. There are NO changes in the patient's condition. Risks, benefits, and alternatives have been discussed and questions answered. Patient agrees to proceed with procedure.
[2025-03-11] MEDS: FAMOTIDINE 20 MG/2 ML VIAL IV PUSH (11:55)
[2025-03-11] MEDS: ONDANSETRON INJ 4 MG/2 ML VIAL IV PUSH (11:55)
--- NOTE | 2025-03-11 12:07 | P.PNAN_ITS ---
Anes - Initial Pre Proc Eval Procedure: Operation Date: 03/11/25 12:00 Proposed Procedures p Section - Jaime Marroquin MD Date/Time: 03/11/25 12:07 Surgeon: Jaime Marroquin MD Pre Op Diagnosis: C Section Patient Data Age: 29 Gender: F Height: 1.57 m Weight: 75 kg Last Vital Signs Temp 37.1 C 03/11/25 10:58 Pulse 86 03/11/25 11:56 BP 105/66 03/11/25 11:56 Pulse Ox 100 03/11/25 12:01 O2 Del Method Room Air 03/11/25 10:44 Allergies Allergy/AdvReac Type Severity Reaction Status Date / Time No Known Allergies Allergy Verified 03/11/25 11:54 Home Medications ?Medication ?Instructions ?Recorded ?Confirmed ?Type prenat.vits,tobias,wfw-loye-zpvhs 1 tablet PO DAILY 07/0603/11/25 History levothyroxine 150 mcg tablet 150 mcg PO DAILY 12/30/24 03/11/25 History Patient hx anesthesia problems: none Family hx anesthesia problems: none Results Review: All pre-operative results and documents have been reviewed as part of the pre- operative evaluation. [facility] Past Medical History Medical History Suppression of menses Encounter for removal of intrauterine contraceptive device Encounter for initial insertion of intrauterine contraceptive device Thyroid cancer Surgical History Surgical History H/O dilation and curettage H/O gynecological procedure Mirena IUD insertion 01/17/23 Mirena IUD removal 12/24/23 History of ankle surgery H/O thyroidectomy Family History Family History Other Breast cancer Factor 5 Leiden mutation, heterozygous Other Cerebrovascular accident Heart disease Social History Social History Smoking status: Former smoker Alcohol intake: current Alcohol use details: socially Substance use: never Substance use type: does not use Do You Feel Safe in your Home?: Yes Lack of Transportation: No Lack of Food: Never True Current Housing: I Have Housing Concerned About Future Housing: No Difficulty Paying Gas/Electric Bills: No Difficulty Paying for Meds: No Currently Unemployed: No Education: Associate Degree Difficulty w/ Childcare or Family Care: No Living arrangements: with family Additional living arrangements comments: 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/Education: occupation 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 Gender identity (if verbalized by the patient): Female Sexual Orientation (if Verbalized by the Patient): Straight or Heterosexual Spiritual care concerns: No Anes - Eval Final PreProcedure Day of Procedure 03/11/25 12:07 Patient weight: overweight Heart: regular rate and rhythm Lungs: clear to auscultation Airway: Mallampati scale class II Neurological: alert and oriented Last oral intake: >/= 8 hours ASA classification: III Emergent: no Anesthetic plan: proceed Anesthesia type and monitoring: regional spinal and standard monitoring Results Review: All pre-operative results and documents have been reviewed as part of the pre- operative evaluation. Informed Consent: The patient's anesthetic plan and its attendant risks and benefits were discussed with the patient/family/POA. Questions were solicited and answers provided to the satisfaction of the patient/family/POA.
[2025-03-11] MEDS: ceFAZolin 2 GM in SODIUM CHLORIDE 0.9% IV 50 ML 100 ML IVPB (12:08)
--- NOTE | 2025-03-11 13:05 | W.PM.OBCSD ---
OB - Delivery Note Procedure Delivery date: 03/11/25 Pre-op diagnosis: Placenta Previa Post-op Diagnosis: Same Induction method: None Delivery monitor: External FHT Prior to decision for section, ACOG/SMFM labor guidelines were considered and discussed with the patient and staff. Decision made to proceed with the section.: Yes Procedure Performed: Primary Primary branch: low cervical, transverse Surgeon: Jaime Marroquin MD Anesthesia type: Spinal Description of Procedure/Findings: The patient was taken to the operating room. A combined spinal epidural anesthesic was administered and found to be adequate at a t-10 level. The patient was placed in a supine position with a slight left lateral tilt. A landa catheter was placed with return of clear urine. A Bovie grounding pad was placed. Surgical prep was performed and surgical drapes were placed. A surgical time out was performed. A Pfannenstiel skin incision was then made with the scalpel and carried through to the underlying layer of fascia. The fascia was then incised in the midline and the incision was extended laterally with the Hernández scissors. The superior aspect of the fascia was then grasped with the Joel clamps, elevated, and the underlying rectus muscles dissected off bluntly and sharply. Attention was then turned to the inferior aspect of this incision which, in a similar fashion, was grasped, tented up with the Joel clamps, and the rectus muscles dissected off both bluntly and sharply. The rectus muscles were then in the midline. The peritoneum was identified and entered bluntly. The peritoneal incision was then extended superiorly and inferiorly with good visualization of the bladder. The vesico-uterine serosa was identified and dissected to create a bladder flap. A ring retractor was placed for better visualization. The uterus was inspected for rotation. A low-transverse uterine incision was made sharply with the scalpel and entry was made into the uterine cavity. An amniotomy was made and copious amounts of clear fluid were noted on return. The uterine incision was extended laterally bluntly. The bladder blade was removed and the fetus was delivered atraumatically. The nose and mouth were suctioned with a bulb syringe. The umbilical cord was clamped twice and cut. The infant was handed off to the waiting staff. At the time of the delivery, the had good color, tone and grimace. The infant cried with minimal stimulation. A second segment of umbilical cord was clamped and cut for cord blood gasses. The placenta was delivered spontaneously without difficulty. The placenta appeared grossly normal and complete. The uterus was exteriorized and cleared of all clots and debris. The uterine incision was repaired using 0-monocryl suture in a running fashion. A second layer of 0 Monocryl suture was used in an imbricating fashion to obtain excellent hemostasis and uterine strength. The uterine closure was inspected for hemostasis. The posterior aspect of the uterus and the broad ligaments were inspected and the posterior cul-de-sac cleared of fluid and blood clots. The uterine closure was again inspected and found to be hemostatic. The uterus was returned to the abdominal cavity. The pericolic gutters were inspected and were cleared of all blood clots and debris. The uterine closure was then re inspected to ensure hemostasis as were all subfascial tissues. The peritoneum was closed using 3-0 vicryl in a running fashion. The fascia was reapproximated with 0-vicryl in a running fashion. The subcutaneous tissue was irrigated and hemostasis achieved with electrocautery. It was reapproximated with 3-0 vicryl in a running fashion. The skin was closed with 4-0 vicryl in a subcuticular fashion. A sterile dressing was applied to the wound. The patient tolerated the procedure well. Sponge, lap and needle counts were correct times three. The patient was taken to recovery in stable condition and without anticipated complications. Specimen: Yes (placenta) Drains: No Packing: No Pathology: Yes Complications: No immediate complications Condition: Stable Disposition: Floor Baby Date of : 03/11/25 Gestational Age by Date: 35 gender: Female presentation: vertex Placenta delivery description: Manual Removal Cord Vessel Description: 3 Vessels and Around Body
--- NOTE | 2025-03-11 13:17 | S_PTH ---
PATIENT: Yaneth Escoto LOC: ANHOB2 U#:[id number] AGE/SX: 29/F ROOM: 276 RE03/11/[address]: Franklin Bedolla MD : 1995 BED: 00 DIS: 03/14/2025 SPEC #: [id number] RECD: 03/12/25 13:01 STATUS: ABBY WAHL #: [id number] JESU: 03/11/25 13:[address]: Jaime Marroquin DEPT: [facility] Surgical RECD BY: Najma De León ENTERED: 03/12/25 13:02 SP TYPE: Surgical OTHR DR: UNKNOWN,DOCTOR Tissues: A - Placenta Procedures: Hematoxylin and Eosin Stain Gross and Microscopic Level 5
[2025-03-11] MEDS: OXYTOCIN 30 UNITS/NS 500 ML 30 UNITS/500 ML BAG 125 UNITS IV CONT (16:00)
[2025-03-11] MEDS: KETOROLAC 15 MG/ML VIAL (*BKC) IV PUSH (16:30)
[2025-03-11] MEDS: SIMETHICONE 80 MG TAB.CHEW PO (17:46)
[2025-03-11] MEDS: DOCUSATE SODIUM 100 MG CAPSULE PO (17:46)
[2025-03-11] MEDS: DEXTROSE 5%/0.45% SOD CHL 1,000 ML 125 ML IV CONT (20:27)
[2025-03-12] MEDS: KETOROLAC 15 MG/ML VIAL (*BKC) IV PUSH ×2 (02:30→08:00)
[2025-03-12] MEDS: ACETAMINOPHEN 500 MG TABLET 1000 MG PO ×4 (02:31→21:24)
[2025-03-12 05:26] LABS: Hematocrit 25.3 % (37.0-47.0); Hemoglobin 8.2 g/dL (12.0-15.0); Immature Granulocyte Percent A 1.3 % (0-0.5); Lymphocytes Absolute Auto 2.60 K/mm3 (0.9-3.2); Mean Corpuscular HGB Conc 32.4 g/dl (32-36); Mean Corpuscular Hemoglobin 29.4 pg (26-34); Mean Corpuscular Volume 90.7 fl (80-100); Nucleated Red Blood Cells Absolute Auto 0.000 K/mm3 (0.0-0.012); Nucleated Red Blood Cells Perc 0.0 % (0.0-0.2); Platelet Count Result 170 k/mm3 (150-375); Red Blood Count 2.79 M/mm3 (4.2-5.4); White Blood Count 15.2 K/mm3 (4.5-10.0)
[2025-03-12 07:25] VITALS: BP 86/52; PULSE 69; RESP 16; TEMP 36.8; O2SAT 98
[2025-03-12] MEDS: DOCUSATE SODIUM 100 MG CAPSULE PO ×2 (08:00→17:05)
[2025-03-12] MEDS: SIMETHICONE 80 MG TAB.CHEW PO ×3 (08:00→17:06)
[2025-03-12] MEDS: LEVOTHYROXINE SODIUM 150 MCG TABLET PO (08:00)
--- NOTE | 2025-03-12 08:45 | PC.NURSE ---
Introductions were made, then consulted with patient to assess needs related to . Discussed with mother her?plans to feed?her and the?experience so far. Per mother she plans on only pumping and bottle/formula feeding, she has brought her own breast pump and is independently using it, she declined nipple measurement. Resources provided for inpatient and outpatient services with the feeding sheet, mom/baby guide and name written on the communication board. Mother voiced understanding of information and will call if there is a request for assistance. Reported to the Primary RN.
--- NOTE | 2025-03-12 10:09 | WPDANLDNPN2 ---
Anes-Prog Note L&D-Neuraxial Date/Time: 03/12/25 10:09 Patient feedback: Patient satisfied with post-operative pain management.
--- NOTE | 2025-03-12 10:09 | WPDANLDPN2 ---
Anes-Prog Note L&D Date/Time: 03/12/25 10:09 Neuro status: Neuro function grossly intact. Cardiovascular status: normal Respiratory status: normal Airway patency: baseline Mental status: baseline Post-Op hydration status: normal Vital Signs: Last Vital Signs Temp 36.8 C 03/12/25 07:25 Pulse 69 03/12/25 07:25 Resp 16 03/12/25 07:25 BP 86/52 L 03/12/25 07:25 Pulse Ox 98 03/12/25 07:25 O2 Del Method Room Air 03/11/25 22:30 Pain score (VAS): 0 I/O: Intake & Output 03/11/25 03/12/25 03/12/25 23:59 07:59 15:59 Output Total 600 1825 Balance -600 -1823 Post-procedural complaints: none Patient feedback: Patient satisfied with anesthetic care.
[2025-03-12 11:38] VITALS: BP 93/52; PULSE 71; RESP 16; TEMP 37.1; O2SAT 97
[2025-03-12] MEDS: IBUPROFEN 600 MG TABLET PO ×2 (14:25→21:25)
[2025-03-12 17:00] VITALS: BP 99/65; PULSE 82; RESP 16; TEMP 37; O2SAT 100
[2025-03-12] MEDS: oxyCODONE HCL (*CRX) 5 MG TAB IR PO (17:05)
[2025-03-12 20:00] VITALS: BP 111/61; PULSE 72; PULSE 82; RESP 15; RESP 16; TEMP 36.7; O2SAT 100; O2SAT 99
[2025-03-13] MEDS: ACETAMINOPHEN 500 MG TABLET 1000 MG PO ×4 (05:32→23:02)
[2025-03-13] MEDS: IBUPROFEN 600 MG TABLET PO ×4 (05:32→23:02)
[2025-03-13 07:46] VITALS: BP 106/54; PULSE 65; RESP 16; TEMP 36.7; O2SAT 98
[2025-03-13] MEDS: LEVOTHYROXINE SODIUM 150 MCG TABLET PO (08:13)
--- NOTE | 2025-03-13 10:04 | PM.OBPNVD ---
OB - PN: Subj Subjective Date/time seen: 03/13/25 10:04 S: Diet well tolerated. Pain well controlled. Void without issue. No complaints O: VSS afebrile Abdomen positive bowel sounds soft incision clean dry and intact Labs noted Assessment: 1. Postoperative day 2 status post for placenta previa Plan: 1. Routine postoperative care, home tomorrow if baby is able. OB - PN: Obj Data Labs 03/12/25 04:26 OB - PN A/P Time Spent With Patient Time: Total time spent is greater than 50% in coordination of care (as documented) at patient's floor/unit and/or counseling patient:
--- NOTE | 2025-03-13 10:05 | P.DS_ITS ---
DS: Admitting Diagnosis Discharge Date 03/14/2025 Admitting Diagnosis DS: Discharge Diagnosis Discharge Diagnosis (1) delivery delivered: Code(s): O82 - Encounter for delivery without indication Status: Acute OB - DS: Summary OB Procedures : None OB Procedures Intrapartum: OB Procedures: : None Peripartum Data Procedures: Procedures Operation Date: 03/11/25 12:00 Actual Procedure Side Surgeon p Section Not Applicable Jaime Marroquin MD Time Spent with Patient Time attestation: Total time spent providing and/or coordinating discharge services: DS: Data Data Completed and Pending Pending studies at discharge: Pending at discharge 03/11/25 13:17 Surgical [PTH] Routine Discharge Plan Discharge Discharging Clinician: Jaime Marroquin Patient Disposition: Home Activity: as tolerated and pelvic rest Diet: regular Patient Instructions: Antibiotic Form, (DC) Patient Language: Cypriot Stand Alone Forms: General Discharge Information Follow-up/Referrals: Jaime Marroquin MD [Physician, HAT FORMING MACHINE FEEDER] Discharge Medications: New oxycodone-acetaminophen 5-325 mg tablet 1 tablet PO Q6H PRN (Reason: pain) Qty: 28 0RF ferrous sulfate 325 mg (65 mg iron) tablet 325 mg PO TID Qty: 90 0RF ibuprofen 600 mg tablet 600 mg PO Q6H PRN (Reason: pain) Qty: 30 0RF Continued prenat.vits,tobias,ohc-ypph-fpvak Tablet 1 tablet PO DAILY levothyroxine 150 mcg tablet 150 mcg PO DAILY Date of admission: 03/11/25 09:57 Primary Care Provider: UNKNOWN,DOCTOR Admitting Provider: Jaime Marroquin Attending physician on admission: Jaime Marroquin Condition: Stable
--- NOTE | 2025-03-13 10:14 | PC.NURSE ---
Consulted with patient to assess needs related to pumping and/or . Patient states that when she pumps she is not getting much, a few drops. Discussed with patient that this is to be expected because she delivered at 36 weeks. Encouraged patient to continue being consistent with pumping every 2-3 hours. Patient states understanding and will call this RN if she has further questions or concerns. is currently taking 22k/tobias Enfamil formula bottles and will begin incorporating patients pumped breast milk once her supply begins to increase.
[2025-03-13] MEDS: SIMETHICONE 80 MG TAB.CHEW PO ×3 (11:13→23:02)
[2025-03-13] MEDS: DOCUSATE SODIUM 100 MG CAPSULE PO ×2 (11:14→17:20)
[2025-03-13 18:40] VITALS: BP 105/62; PULSE 80; RESP 16; TEMP 36.9; O2SAT 97
[2025-03-14] MEDS: IBUPROFEN 600 MG TABLET PO ×2 (05:03→10:28)
[2025-03-14] MEDS: ACETAMINOPHEN 500 MG TABLET 1000 MG PO ×2 (05:03→10:28)
[2025-03-14 07:30] VITALS: BP 112/66; PULSE 81; RESP 16; TEMP 36.5; O2SAT 98
[2025-03-14] MEDS: LEVOTHYROXINE SODIUM 150 MCG TABLET PO (07:34)
--- NOTE | 2025-03-14 10:17 | PC.NURSE ---
Patient viewed the discharge video Mother & Baby Care, The First Two Weeks. Patient was given the opportunity and encouraged to ask questions. Patient verbalized understanding of information shared and has been given the mother/baby guide for home reference.
[2025-03-14] MEDS: DOCUSATE SODIUM 100 MG CAPSULE PO (10:28)
[2025-03-14] MEDS: SIMETHICONE 80 MG TAB.CHEW PO (10:28)
[2025-03-16 08:05] VITALS: BP 117/80; PULSE 91; RESP 18; TEMP 36.8; O2SAT 100
== END 2025-03-14 12:35 | disposition home or self-care (01) | DRG 786 ==
LOC: ANHOB2 03-12 16:10 → ANHOBPP 03-16 09:41 → ANHLDR 03-16 09:41
PROVIDERS: Admitting Provider Student in an Organized Health Care Education/Training Program; Visit Provider Obstetrics & Gynecology
PROC: 10D00Z1 Extraction of Products of Conception, Low, Open Approach (ICD-10-PCS; CPT 59514; principal; 2025-03-11 12:00)
DX: O44.03 Complete placenta previa NOS or without hemorrhage, third trimester (principal); O60.13X0 Preterm labor second trimester with preterm delivery third trimester, not applicable or unspecified; Z3A.36 36 weeks gestation of pregnancy; Z37.0 Single live birth; O69.2XX0 Labor and delivery complicated by other cord entanglement, with compression, not applicable or unspecified; O99.284 Endocrine, nutritional and metabolic diseases complicating childbirth; E03.9 Hypothyroidism, unspecified
CPT/HCPCS: 36415; 85025; 88307; J0690; A9270; J1100; J1885; J2274; J2405; J2590; J7120

== ENCOUNTER 2025-04-23 14:54 | Outpatient (CLI) | payer BC, SELFPAY ==
--- OUTSIDE RECORDS SUMMARY | 2025-04-23 14:59 | XMS_ITS | Clinical Summary ---
Author Organization [facility] Address [address] [place] [address] Care Team Providers Care Hoop Punch Operator Helper Name Role Phone Unavailable Primary Care Provider Unavailabl e Source Comments [facility],non-owned Affiliates and Associated Physician Practices is amultiple site organization consisting of ambulatory clinics and hospital sitesin [place], [place], [place] and [place]. This disclosure is being madepursuant to the Care Everywhere program and may not contain all information available regarding this patient. Last updated 18.[facility] Allergies No known active allergies Medications * Be aware that medications may not be up to date on this document. Alwaysverify current medications with the patient. Levothyroxine Sodium (SYNTHROID PO) Activ e Vit-Fe Fumarate-FA ( vitamin) 28-0.8 MG tablet Take 1 (one) tablet by mouth once daily Active Active Problems Problem Noted Date Diagnosed Date Placenta previa antepartum 02/21/2025 Estimated Date of Delivery Comme nts Yes 04/05/2025 Based on Patient Reported, LMP/U/S Encounters Date Type Department Care Team Description 04/06/2025 Hospital Encounter [facility] [address] [place] [address] 02/22/2025 Telephone [facility] MATERNAL/ EVALUATION UNIT [address] [place] [address] [address] [place] [address] Dunajcik, Quin S, RN Hospitalization; Hospital Follow-up 02/21/2025 8:04 PM CDT - 02/22/2025 1:47 PM CDT Hospital Encounter [facility] 5E ANTEPARTUM/MOTHER BABY [address] [place] [address] César Patterson MD Discharge Disposition: Home or [...] and heating? Not hard at all 02/21/2025 [facility] [place] of Occupat ional Health - Occupational Stress [...] were you homeless or living in a usp (including now)? 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 Heart / Thorax 3-vessel view. 4-awwjya-imrksgw view. Situs. Bicaval view. Great vessels. Diaphragm. [...] O44.13: Complete placenta previa with hemorrhage Procedures 36294: US Preg Uterus Detailed 91714: US Preg Uterus Transvaginal [place] PACS Anatomical Region Laterality Modality Other 02/22/2025 9:12 AM CDT César Patterson MD M ORDERABLES Edited Result - Final * BLOOD TYPE VERIFICATION (02/21/2025 11:03 PM CDT) ABO Rh A POS 02/21/2025 11:51 PM CDT [facility] Blood Bank BLOOD SPECIMEN / Unknown Venipuncture / Unknown 02/21/2025 11:03 PM CDT 02/21/2025 11:33 PM CDT César Patterson MD LAB - BLOOD BANK ORDERABLES Fi nal Result Performing Organization Address [facility] Co de Phone Number [facility] [address] [place] [address] * PROTEIN URINE QUALITATIVE AUTO (02/21/2025 11:03 PM CDT) Protein UA Negative Negative 02/22/2025 12:13 AM CDT [facility] Urine URINE / Unknown Collection / Unknown 02/21/2025 11:03 PM CDT 02/22/2025 12:06 AM CDT César Patterson MD LAB - URINALYSIS ORDERABLES Fi nal Result Performing Organization Address City/[facility]/ZIP Co de Phone Number [facility] [address] [place] [address] * (ABNORMAL) KETONES QUALITATIVE URINE AUTO (02/21/2025 11:03 PM CDT) Ketone UA 1+(A) Negative 02/22/2025 12:13 AM CDT [facility] Urine URINE / Unknown Collection / Unknown 02/21/2025 11:03 PM CDT 02/22/2025 12:06 AM CDT César Patterson MD LAB - URINALYSIS ORDERABLES Fi nal Result [facility] [address] [place] [address] * TYPE + SCREEN PANEL (02/21/2025 10:21 PM CDT) ABO Rh A POS 02/21/2025 10:59 PM CDT [facility] Comment:No history; collect retype. Antibody Screen NEG 10:59 PM CDT [facility] Blood Bank BLOOD SPECIMEN / Unknown Venipuncture / Unknown 02/21/2025 10:21 PM CDT 02/21/2025 10:28 PM CDT César Patterson MD LAB - BLOOD BANK ORDERABLES Fi nal Result Performing Organization Address [facility] Co de Phone Number [facility] [address] [place] [address] * (ABNORMAL) COAGULATION PANEL W D-DIMER (02/21/2025 10:21 PM CDT) PT 12.7 12.1 - 14.8 sec 02/21/2025 11:18 PM CDT [facility] INR 0.9 0.9 - 1.1 02/21/2025 11:18 PM CDT [facility] PTT 21.4(L) 23.0 - 38.4 sec 02/21/2025 11:18 PM CDT [facility] Fibrinogen 449(H) 200 - 400 mg/dL 02/21/2025 11:18 PM CDT [facility] D-Dimer 0.91(H) 0.27 - 0.50 ug/mL FEU 02/21/2025 11:18 PM CDT [facility] Platelet Count 180 150 - 420 x10E9/L 02/21/2025 11:18 PM CDT [facility] Blood BLOOD SPECIMEN / Unknown Venipuncture / Unknown 02/21/2025 10:21 PM CDT 02/21/2025 11:04 PM CDT Narrative [facility] - 02/21/2025 11:18 PM CDT Conventional [...] LAB - COAGULATION ORDERABLES F inal Result [facility] [address] [place] [address] * (ABNORMAL) CBC W AUTO DIFFERENTIAL (02/21/2025 10:21 PM CDT) WBC 10.4 4.0 - 10.7 x10E9/L 02/21/2025 11:08 PM CDT [facility] RBC Count 3.59(L) 3.90 - 5.20 x10E12/L 02/21/2025 11:08 PM CDT [facility] Hemoglobin 10.8(L) 11.9 - 15.8 g/dL 02/21/2025 11:08 PM CDT [facility] Hematocrit 31.3(L) 34.8 - 46.1 % 02/21/2025 11:08 PM CDT [facility] MCV 87.2 80.0 - 98.0 fL 02/21/2025 11:08 PM CDT [facility] MCH 30.1 26.7 - 33.6 pg 02/21/2025 11:08 PM CDT [facility] MCHC 34.5 31.7 - 36.3 g/dL 02/21/2025 11:08 PM CDT [facility] RDW-CV 13.0 11.3 - 14.8 % 02/21/2025 11:08 PM CDT [facility] Platelet Count 176 150 - 420 x10E9/L 02/21/2025 11:08 PM CDT [facility] MPV 11.4 7.8 - 11.4 fL 02/21/2025 11:08 PM CDT [facility] Neutrophil % 64.9 41.0 - 74.0 % 02/21/2025 11:08 PM CDT [facility] Lymphocyte % 25.8 17.0 - 47.0 % 02/21/2025 11:08 PM CDT [facility] Monocyte % 6.9 3.0 - 11.0 % 02/21/2025 11:08 PM CDT [facility] Eosinophil % 0.8 0.0 - 7.0 % 02/21/2025 11:08 PM CDT [facility] Basophil % 0.3 0.0 - 1.6 % 02/21/2025 11:08 PM T [facility] Immature Granulocytes % 1.3(H) 0.0 - 1.0 % 02/21/2025 11:08 PM CDT [facility] Neutrophil Absolute 6.74 1.60 - 7.50 x10E9/L 02/21/2025 11:08 PM CDT [facility] Lymphocyte Absolute 2.67 1.00 - 4.40 x10E9/L 02/21/2025 11:08 PM CDT [facility] Monocyte Absolute 0.71 0.15 - 1.00 x10E9/L 02/21/2025 11:08 PM T [facility] Eosinophil Absolute 0.08 0.00 - 0.60 x10E9/L 02/21/2025 11:08 PM T [facility] Basophil Absolute 0.03 0.00 - 0.13 x10E9/L 02/21/2025 11:08 PM T [facility] Blood BLOOD SPECIMEN / Unknown Venipuncture / Unknown 02/21/2025 10:21 PM CDT 02/21/2025 11:05 PM CDT us César Patterson MD LAB - HEMATOLOGY ORDERABLES Fi nal Result [facility] [address] [place] [id number] from Last 3 Months Insurance [employer] [facility] SELF PAY NO INSURANCE Member Subscriber Plan / Payer (Ef fective for All Dates) Name:Yaneth Spicer Member ID:Not on file Relation to Subscriber:Not on file Name:YANETH SPICER Subscriber ID:Not on file (Home) Address: [address] [place] [address] Payer ID:Not on file Group ID:Not on file Type:Self Pay Address: [facility] * Guarantor: Yaneth Spicer Account Type Relation to Patient Date of Phone Billing Address Personal/Family Spouse Advance Directives * Full Code (Latest Code Status on File) Date Activated Date Inactivated Comments 02/21/2025 10:50 PM 02/22/2025 2:53 PM
--- OUTSIDE RECORDS SUMMARY | 2025-04-23 14:59 | XMS_ITS | Encounter Summary ---
Author Organization [facility] Health Address [address] [address] Care Team Providers Care Training Project Manager Name Role Phone Unavailable Primary Care Provider Unavailabl e Encounter Details Date Type Department Care Team (Late st Contact Info) Description 04/06/2025 Hospital Encounter [facility] [address] [place] [address] Social History Tobacco Use Types Packs/Day Years [...] and heating? Not hard at all 02/21/2025 [facility] [place] of Occupat ional Health - Occupational Stress [...] any time in the past 12 m [facility], were you homeless or living in a detention (including now)? 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 Answer Date of Assessment Author No 02/21/2025 10:45 PM ALEXANDERT Cris Tovar RN * Is person blind or have serious difficulty seeing? Answer Date of Assessment Author No 02/21/2025 10:45 PM ALEXANDERT Cris Tovar RN * Does person have serious difficulty walking/climbing stairs? Answer Date of Assessment Author No 02/21/2025 10:45 PM ALEXANDERT Cris Tovar RN * Does person have difficulty dressing/bathing? Answer Date of Assessment Author No 02/21/2025 10:45 PM ALEXANDERT Cris Tovar RN * Does person have difficulty doing errands alone? Answer Date of Assessment Author No 02/21/2025 10:45 PM ALEXANDERT Cris Tovar RN documented as of this encounter Mental Status * Does person have difficulty concentrating/remembering/making decisions? Answer Entry Date Author No 02/21/2025 10:45 PM Cris Villa RN documented in this encounter Plan of Treatment Not on file documented as of this encounter Visit Diagnoses Not on filedocumented in this encounter
[2025-04-23 16:09] LABS: Free T4 Free Thyroxine 1.58 ng/dL (0.78-2.19)
[2025-04-23 16:22] LABS: Thyroid Stimulating Hormone < 0.015 uIU/mL (0.465-4.680)
== END 2025-04-23 14:55 | disposition home or self-care (01) ==
LOC: ANHLAB 14:57
PROVIDERS: Visit Provider Internal Medicine Endocrinology, Diabetes & Metabolism
DX: E89.0 Postprocedural hypothyroidism (principal); C73 Malignant neoplasm of thyroid gland
CPT/HCPCS: 36415; 84439; 84443; 86800

== ENCOUNTER 2025-05-11 15:13 | Outpatient (CLI) | payer BC, SELFPAY ==
[2025-05-11 16:29] LABS: Beta HCG Quantitative < 2.39 mIU/ML
--- OUTSIDE RECORDS SUMMARY | 2025-05-11 16:57 | XMS_ITS ---
Author Organization Unknown Address [address] [place] [phone] Phone Care Team Providers Care Parking Meter Installer Name Role Phone DARLIN EDMONDSON Attending Unavailable Social History Type Status Start Date End Date Code Code Syst em Sex Female Hospital Discharge Instructions Should you have any questions prior to discharge, please contact a member of your healthcare team. If you have left the hospital and have any questions, please contact your primary care physician. Reason For Referral No Data Found Plan of Treatment FOLLOW-UP THYROID 04/30/2025 FOLLOW-UP THYROID 08/13/2025 Encounters Encounter Diagnosis Start Date Code Code Sys tem Postprocedural hypothyroidism 04/30/2025 SNOMED-CT Personal Care Team Section
--- OUTSIDE RECORDS SUMMARY | 2025-05-11 16:57 | XMS_ITS | Patient Health Record ---
Author Organization [facility] Address [address] [facility] [address] [place] [address] Care Team Providers Care Biometrics Instructor Name Role Phone GMROSY SHIELA Primary Care Provider Unavailab radha Farhan Emery Unavailable [phone] Allergies No Known Allergies Results Component Value Reference Range Notes TSH Reviewed date:04/30/2025 08:52:54 AM Interpretation:0.015 Performing Lab: Notes/Report: 0.015 TSH 0.015 THYROGLOBULIN ANTIBODIES Reviewed date:04/28/2025 09:00:58 AM Interpretation:Normal Performing Lab: Notes/Report: Normal THYROGLOBULIN ANTIBODIES <1.0 T4, FREE Reviewed date:04/26/2025 11:09:57 AM Interpretation:Normal Performing Lab: Notes/Report: Normal T4,Free(Direct) 1.58 TSH Reviewed date:08/27/2024 12:44:18 PM Interpretation:Normal Performing Lab: Notes/Report: Normal TSH, 0.653 TSH Reviewed date:08/03/2024 04:28:14 PM Interpretation: Performing Lab: Notes/Report: TSH 0.712 TSH Reviewed date:09/28/2024 04:32:55 PM Interpretation:change to 137 mcg Performing Lab: Notes/Report: change to 137 mcg TSH, 5.330 TSH Reviewed date:12/01/2024 03:58:01 PM Interpretation:Normal Performing Lab: Notes/Report: Normal TSH, 2.150 TSH Reviewed date:01/11/2025 11:22:57 AM Interpretation:Normal Performing Lab: Notes/Report: Normal TSH, 0.864 Reason For Referral No Information Medications Medication SIG (Take, Route, Frequency, Duration) Notes Start Date End Date Status Levothyroxine Sodium 112 MCG 1 tablet in the morning on an empty stomach Orally Once a day; Duration: 90 days 10/28/2024 Active Wegovy 0.25 MG/0.5ML 0.25 mg Subcutaneou s once a week; Duration: 30 days 04/30/2025 Active Social History Tobacco Use: Social History Observation Description Date Details (start date - stop date) Never Smoker NA - NA Tobacco Use Question Answer Notes Tobacco use: Nonsmoker Problems Problem Type SNOMED Code ICD Code Onset Dates Problem Status W/U Status Risk Notes Problem Postsurgical hypothyroidism (23570083) Postsurgical hypothyroidism (E89.0) Active confirmed Problem Malignant neoplasm of thyroid gland (175821403) Malignant neoplasm of thyroid gland (C73) Active confirmed Vital Signs Respiratory Rate 18 /min 04/30/2025 Blood pressure diastolic 66 mm Hg 04/30/2025 Height 62 in 04/30/2025 Blood pressure systolic 114 mm Hg 04/30/2025 Weight 151.8 lbs 04/30/2025 BMI 27.76 kg/m2 04/30/2025 Encounters Encounter Location Date Provider Diagnosis [address] [address] 04/30/2025 [facility] Postsurgical hypothyroidism E89.0 ; Malignant neoplasm of thyroid gland C73 and BMI 27.0-27.9,adult Z68.[address] [address] 05/03/2025 [place] [address] [place] [address] 07/26/[address] [address] 08/27/[address] [address] 09/28/2024 [facility] Postsurgical hypothyroidism E89.[address] [address] 10/28/[address] [place] [address] 11/26/2024 Farhan Emery [facility] [address] [place] [address] 12/22/2024 Farhan Emery Postsurgical hypothyroidism E89.0 [facility] [address] [place] [address] 01/11/2025 Farhan Emery [facility] [address] [place] [address] 02/16/2025 Farhan Emery Assessments Encounter Date Diagnosis (ICD Code) Assessment Notes Treatment Notes Treatment Clinical Notes Section Notes 09/28/2024 Postsurgical hypothyroidism (ICD-10 - E89.0) 12/22/2024 Postsurgical hypothyroidism (ICD-10 - E89.0) 04/30/2025 Postsurgical hypothyroidism (ICD-10 - E89.0) Old records reviewed THyroidectomy Jan 2018. Apr 2025: TSH 0.01 on 150 mcg 6 weeks Change LT4 112 mcg a day, TSH goal wnl Wanted GLP1 for weight loss. 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 May 2018: Thyroglobulin < 0.7, Ab wnl Jun 2019:Thyroglobuli n 0.2 unstimulated Mar 2020: Thyroglobulin 5.8 stimulated level (with high TSH) at [facility], So, PT received third [facility] TSH goal < 0.1 till Apr 2025 04/30/2025 BMI 27.0-27.9,adult (ICD-10 - Z68.27) Plan Of Treatment Pending Test Test Name Order Date TSH 10/26/2022 Thyroglobulin Quantitative and Antibody 05/21/2018 Next Appt Details Provider Name:Farhan Emery, 08/13/2025 08:30:00 AM, [address], [address], [place], [address], Insurance Providers Payer Name Payer Address Payer Phone Subscriber Number Group Number Insured Name Patient Relationship to Insured Coverage Start Date Coverage End Date [employer] [address] [place] [address] [id number] MERE BERGER Child - Insured does not have Financial Responsibility (includes legally adopted child) Medical (General) History Medical History History ICD Code Papillary Thyroid Cancer Jan 2018, S/p T otal THyroidectomy Thyroid Disease Surgical History Surgery Date(Month/Year) Thyroidectomy-Total 01/31/18 Dissection neck-central neck dissection 01/31/18 Excision Cyst-Thyroglossal Duct 01/31/18 C section 03/11/25 Hospitalization History Reason Date(Month/Year) child 12/04/2022 Thyroidectomy-Total, Excision Cyst-Thyro glossal Duct 02/01
--- OUTSIDE RECORDS SUMMARY | 2025-05-11 16:57 | XMS_ITS | Clinical Summary ---
Author Organization [facility] Address [address] [facility] [place] [address] Care Team Providers Care Job Captain Name Role Phone Unavailable Primary Care Provider Unavailabl e Source Comments [facility],non-owned Affiliates and Associated Physician Practices is amultiple site organization consisting of ambulatory clinics and hospital sitesin [place], [place], [place] and [place]. This disclosure is being madepursuant to the Care Everywhere program and may not contain all information available regarding this patient. Last updated 18.[facility] Allergies No known active allergies Medications * [...] Type Department Care Team Description 02/22/2025 Telephone [facility] MATERNAL/ EVALUATION UNIT [address] [place] [address]. [address] [place] [address] Quin Mo RN Hospitalization; Hospital Follow-up 02/21/2025 8:04 PM CDT - 02/22/2025 1:47 PM CDT Hospital Encounter [facility] ANTEPARTUM/MOTHER BABY [address] [place] [address] César Patterson MD Discharge Disposition: Home or [...] and heating? Not hard at all 02/21/2025 [facility] of Occupat ional Health - Occupational Stress [...] any time in the past [address] [facility], were you homeless or living in a long term (including now)? 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 Heart / Thorax 3-vessel view. 7-bhrwgg-xvcwkqt view. Situs. Bicaval view. Great vessels. Diaphragm. [...] O44.13: Complete placenta previa with hemorrhage Procedures 82710: US Preg Uterus Detailed 89872: US Preg Uterus Transvaginal fuseSPORT PACS Anatomical Region Laterality Modality Other 02/22/2025 9:12 AM CDT César Patterson MD M ORDERABLES Edited Result - Final * BLOOD TYPE VERIFICATION (02/21/2025 11:03 PM CDT) ABO Rh A POS 02/21/2025 11:51 PM CDT [facility] Blood Bank BLOOD SPECIMEN / Unknown Venipuncture / Unknown 02/21/2025 11:03 PM CDT 02/21/2025 11:33 PM CDT César Patterson MD LAB - BLOOD BANK ORDERABLES Fi nal Result Performing Organization Address [facility] Co de Phone Number [facility] [address] [place] [address] * PROTEIN URINE QUALITATIVE AUTO (02/21/2025 11:03 PM CDT) Protein UA Negative Negative 02/22/2025 12:13 AM CDT [facility] Urine URINE / Unknown Collection / Unknown 02/21/2025 11:03 PM CDT 02/22/2025 12:06 AM CDT César Patterson MD LAB - URINALYSIS ORDERABLES Fi nal Result Performing Organization Address [facility]/ZIP Co de Phone Number [facility] [address] [place] [address] * (ABNORMAL) KETONES QUALITATIVE URINE AUTO (02/21/2025 11:03 PM CDT) Ketone UA 1+(A) Negative 02/22/2025 12:13 AM CDT [facility] Urine URINE / Unknown Collection / Unknown 02/21/2025 11:03 PM CDT 02/22/2025 12:06 AM CDT César Patterson MD LAB - URINALYSIS ORDERABLES Fi nal Result [facility] [address] [place] [address] * TYPE + SCREEN PANEL (02/21/2025 10:21 PM CDT) ABO Rh A POS 02/21/2025 10:59 PM CDT [facility] Comment:No history; collect retype. Antibody Screen NEG 10:59 PM CDT [facility] Blood Bank BLOOD SPECIMEN / Unknown Venipuncture / Unknown 02/21/2025 10:21 PM CDT 02/21/2025 10:28 PM CDT César Patterson MD LAB - BLOOD BANK ORDERABLES Fi nal Result Performing Organization Address [facility] Co de Phone Number [facility] [address] [place] [address] * (ABNORMAL) COAGULATION PANEL W D-DIMER (02/21/2025 10:21 PM CDT) PT 12.7 12.1 - 14.8 sec 02/21/2025 11:18 PM CDT [facility] INR 0.9 0.9 - 1.1 02/21/2025 11:18 PM CDT [facility] PTT 21.4(L) 23.0 - 38.4 sec 02/21/2025 11:18 PM CDT [facility] Fibrinogen 449(H) 200 - 400 mg/dL 02/21/2025 11:18 PM CDT [facility] D-Dimer 0.91(H) 0.27 - 0.50 ug/mL FEU 02/21/2025 11:18 PM CDT [facility] Platelet Count 180 150 - 420 x10E9/L 02/21/2025 11:18 PM CDT [facility] Blood BLOOD SPECIMEN / Unknown Venipuncture / Unknown 02/21/2025 10:21 PM CDT 02/21/2025 11:04 PM CDT Narrative [facility] - 02/21/2025 11:18 [...] LAB - COAGULATION ORDERABLES F inal Result [facility] [address] [place] [address] * (ABNORMAL) CBC W AUTO DIFFERENTIAL (02/21/2025 10:21 PM CDT) WBC 10.4 4.0 - 10.7 x10E9/L 02/21/2025 11:08 PM CDT [facility] RBC Count 3.59(L) 3.90 - 5.20 x10E12/L 02/21/2025 11:08 PM CDT [facility] Hemoglobin 10.8(L) 11.9 - 15.8 g/dL 02/21/2025 11:08 PM CDT [facility] Hematocrit 31.3(L) 34.8 - 46.1 % 02/21/2025 11:08 PM CDT [facility] MCV 87.2 80.0 - 98.0 fL 02/21/2025 11:08 PM CDT [facility] MCH 30.1 26.7 - 33.6 pg 02/21/2025 11:08 PM CDT [facility] MCHC 34.5 31.7 - 36.3 g/dL 02/21/2025 11:08 PM CDT [facility] RDW-CV 13.0 11.3 - 14.8 % 02/21/2025 11:08 PM CDT [facility] Platelet Count 176 150 - 420 x10E9/L 02/21/2025 11:08 PM CDT [facility] MPV 11.4 7.8 - 11.4 fL 02/21/2025 11:08 PM CDT [facility] Neutrophil % 64.9 41.0 - 74.0 % 02/21/2025 11:08 PM CDT [facility] Lymphocyte % 25.8 17.0 - 47.0 % 02/21/2025 11:08 PM CDT [facility] Monocyte % 6.9 3.0 - 11.0 % 02/21/2025 11:08 PM CDT [facility] Eosinophil % 0.8 0.0 - 7.0 % 02/21/2025 11:08 PM CDT [facility] Basophil % 0.3 0.0 - 1.6 % 02/21/2025 11:08 PM [facility] Immature Granulocytes % 1.3(H) 0.0 - 1.0 % 02/21/2025 11:08 PM T [facility] Neutrophil Absolute 6.74 1.60 - 7.50 x10E9/L 02/21/2025 11:08 PM CDT [facility] Lymphocyte Absolute 2.67 1.00 - 4.40 x10E9/L 02/21/2025 11:08 PM [facility] Monocyte Absolute 0.71 0.15 - 1.00 x10E9/L 02/21/2025 11:08 PM [facility] Eosinophil Absolute 0.08 0.00 - 0.60 x10E9/L 02/21/2025 11:08 PM [facility] Basophil Absolute 0.03 0.00 - 0.13 x10E9/L 02/21/2025 11:08 PM [facility] Blood BLOOD SPECIMEN / Unknown Venipuncture / Unknown 02/21/2025 10:21 PM CDT 02/21/2025 11:05 PM CDT us César Patterson MD LAB - HEMATOLOGY ORDERABLES Fi nal Result [facility] [address] [place] [address] from Last 3 Months Insurance [employer] [facility] SELF PAY NO INSURANCE Member Subscriber Plan / Payer (Ef fective for All Dates) Name:Yaneth Spicer Member ID:Not on file Relation to Subscriber:Not on file Name:DANNIELLEYANETH Subscriber ID:Not on file (Home) Address: [address] [place] [address] Payer ID:Not on file Group ID:Not on file Type:Self Pay Address: [place] [facility] Address: [facility] [id number] [place] [address] [facility] * Guarantor: Yaneth Spicer Account Type Relation to Patient Date of Phone Billing Address Personal/Family Spouse Advance Directives * Full Code (Latest Code Status on File) Date Activated Date Inactivated Comments 02/21/2025 10:50 PM 02/22/2025 2:53 PM
== END 2025-05-11 15:14 | disposition home or self-care (01) ==
LOC: ANHLAB 15:14
PROVIDERS: Visit Provider Student in an Organized Health Care Education/Training Program
DX: Z30.431 Encounter for routine checking of intrauterine contraceptive device (principal)
CPT/HCPCS: 36415; 84702

== ENCOUNTER 2025-05-12 07:32 | Emergency (ER) | payer BC, SELFPAY ==
[2025-05-12] VITALS (8 sets, daily range): BP systolic 107–124; BP diastolic 66–97; PULSE 78–115; RESP 15–23; TEMP 36.4–36.8; O2SAT 96–100
--- NOTE | ~2025-05-12 | CT_ITS ---
EXAMINATION: CT BRAIN W/O DATE: 05/12/2025 09:30 INDICATION: Vaginal bleeding. 9 Weeks postop . TECHNIQUE: Computed tomography (CT) of the abdomen and pelvis was performed with 100 cc Omnipaque 350 intravenous contrast. The dose-length product was 441.16 mGy-cm. Automated exposure control and iterative reconstruction technique were employed. COMPARISON: No prior studies for comparison. FINDINGS: Lung bases unremarkable. Dependent atelectasis. Heart size normal. No significant pleural or pericardial effusion. The liver, spleen, pancreas, adrenal glands and are unremarkable. There are bilateral renal cysts. No significant hydronephrosis. Gallbladder is present. Nonobstructive bowel gas pattern. There are changes of section in the uterus. Mild endometrial thickening. Follicular changes in the right ovary. No free air or free fluid. No significant vascular abnormality. No lymphadenopathy. IMPRESSION: 1. Changes of section within the uterus anteriorly. Mild endometrial thickening. Reviewed, dictated and finalized at location O. SALON MANAGER IMPRESSION: 1. Changes of section within the uterus anteriorly. Mild endometrial t hickening.
[2025-05-12 07:56] LABS: Hematocrit 42.0 % (37.0-47.0); Hemoglobin 13.3 g/dL (12.0-15.0); Immature Granulocyte Percent A 0.2 % (0-0.5); Lymphocytes Absolute Auto 5.53 K/mm3 (0.9-3.2); Mean Corpuscular HGB Conc 31.7 g/dl (32-36); Mean Corpuscular Hemoglobin 27.0 pg (26-34); Mean Corpuscular Volume 85.4 fl (80-100); Nucleated Red Blood Cells Absolute Auto 0.000 K/mm3 (0.0-0.012); Nucleated Red Blood Cells Perc 0.0 % (0.0-0.2); Platelet Count Result 225 k/mm3 (150-375); Red Blood Count 4.92 M/mm3 (4.2-5.4); White Blood Count 9.3 K/mm3 (4.5-10.0)
--- OUTSIDE RECORDS SUMMARY | 2025-05-12 08:07 | XMS_ITS | Clinical Summary ---
Author Organization [facility] Address [address] [place] [address] Care Team Providers Care Founder President And Ceo Name Role Phone Unavailable Primary Care Provider Unavailabl e Source Comments [facility],non-owned Affiliates and Associated Physician Practices is amultiple site organization consisting of ambulatory clinics and hospital sitesin [place], [place], [place] and [place]. This disclosure is being madepursuant to the Care Everywhere program and may not contain all information available regarding this patient. Last updated 18.[facility] Allergies No known active allergies Medications * [...] Type Department Care Team Description 02/22/2025 Telephone [facility] MATERNAL/ EVALUATION UNIT [address] [place] [address]. [address] [place] [address] Quin Mo RN Hospitalization; Hospital Follow-up 02/21/2025 8:04 PM CDT - 02/22/2025 1:47 PM CDT Hospital Encounter [facility]E ANTEPARTUM/MOTHER BABY [address] [place] [address] César Patterson MD Discharge Disposition: Home or [...] and heating? Not hard at all 02/21/2025 [facility] of Occupat ional Health - Occupational Stress [...] any time in the past 12 m [facility], were you homeless or living in a usp (including now)? 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 Heart / Thorax 3-vessel view. 3-mhaefo-vlwradn view. Situs. Bicaval view. Great vessels. Diaphragm. [...] O44.13: Complete placenta previa with hemorrhage Procedures 81239: US Preg Uterus Detailed 97029: US Preg Uterus Transvaginal Oh BiBi PACS Anatomical Region Laterality Modality Other 02/22/2025 9:12 AM CDT César Patterson MD M ORDERABLES Edited Result - Final * BLOOD TYPE VERIFICATION (02/21/2025 11:03 PM CDT) ABO Rh A POS 02/21/2025 11:51 PM CDT [facility] Blood Bank BLOOD SPECIMEN / Unknown Venipuncture / Unknown 02/21/2025 11:03 PM CDT 02/21/2025 11:33 PM CDT César Patterson MD LAB - BLOOD BANK ORDERABLES Fi nal Result Performing Organization Address [facility] Co de Phone Number [facility] [address] [place] [address] * PROTEIN URINE QUALITATIVE AUTO (02/21/2025 11:03 PM CDT) Protein UA Negative Negative 02/22/2025 12:13 AM CDT [facility] Urine URINE / Unknown Collection / Unknown 02/21/2025 11:03 PM CDT 02/22/2025 12:06 AM CDT César Patterson MD LAB - URINALYSIS ORDERABLES Fi nal Result Performing Organization Address [facility]/ZIP Co de Phone Number [facility] [address] [place] [address] * (ABNORMAL) KETONES QUALITATIVE URINE AUTO (02/21/2025 11:03 PM CDT) Ketone UA 1+(A) Negative 02/22/2025 12:13 AM CDT [facility] Urine URINE / Unknown Collection / Unknown 02/21/2025 11:03 PM CDT 02/22/2025 12:06 AM CDT César Patterson MD LAB - URINALYSIS ORDERABLES Fi nal Result [facility] [address] [place] [address] * TYPE + SCREEN PANEL (02/21/2025 10:21 PM CDT) ABO Rh A POS 02/21/2025 10:59 PM CDT [facility] Comment:No history; collect retype. Antibody Screen NEG 10:59 PM CDT [facility] Blood Bank BLOOD SPECIMEN / Unknown Venipuncture / Unknown 02/21/2025 10:21 PM CDT 02/21/2025 10:28 PM CDT César Patterson MD LAB - BLOOD BANK ORDERABLES Fi nal Result Performing Organization Address [facility] Co de Phone Number [facility] [address] [place] [address] * (ABNORMAL) COAGULATION PANEL W D-DIMER (02/21/2025 10:21 PM CDT) PT 12.7 12.1 - 14.8 sec 02/21/2025 11:18 PM CDT [facility] INR 0.9 0.9 - 1.1 02/21/2025 11:18 PM CDT [facility] PTT 21.4(L) 23.0 - 38.4 sec 02/21/2025 11:18 PM CDT [facility] Fibrinogen 449(H) 200 - 400 mg/dL 02/21/2025 11:18 PM CDT [facility] D-Dimer 0.91(H) 0.27 - 0.50 ug/mL FEU 02/21/2025 11:18 PM CDT [facility] Platelet Count 180 150 - 420 x10E9/L 02/21/2025 11:18 PM CDT [facility] Blood BLOOD SPECIMEN / Unknown Venipuncture / Unknown 02/21/2025 10:21 PM CDT 02/21/2025 11:04 PM CDT Narrative [facility] - 02/21/2025 11:18 PM [...] LAB - COAGULATION ORDERABLES F inal Result [facility] [address] [place] [address] * (ABNORMAL) CBC W AUTO DIFFERENTIAL (02/21/2025 10:21 PM CDT) WBC 10.4 4.0 - 10.7 x10E9/L 02/21/2025 11:08 PM CDT [facility] RBC Count 3.59(L) 3.90 - 5.20 x10E12/L 02/21/2025 11:08 PM CDT [facility] Hemoglobin 10.8(L) 11.9 - 15.8 g/dL 02/21/2025 11:08 PM CDT [facility] Hematocrit 31.3(L) 34.8 - 46.1 % 02/21/2025 11:08 PM CDT [facility] MCV 87.2 80.0 - 98.0 fL 02/21/2025 11:08 PM CDT [facility] MCH 30.1 26.7 - 33.6 pg 02/21/2025 11:08 PM CDT [facility] MCHC 34.5 31.7 - 36.3 g/dL 02/21/2025 11:08 PM CDT [facility] RDW-CV 13.0 11.3 - 14.8 % 02/21/2025 11:08 PM CDT [facility] Platelet Count 176 150 - 420 x10E9/L 02/21/2025 11:08 PM CDT [facility] MPV 11.4 7.8 - 11.4 fL 02/21/2025 11:08 PM CDT [facility] Neutrophil % 64.9 41.0 - 74.0 % 02/21/2025 11:08 PM CDT [facility] Lymphocyte % 25.8 17.0 - 47.0 % 02/21/2025 11:08 PM CDT [facility] Monocyte % 6.9 3.0 - 11.0 % 02/21/2025 11:08 PM CDT [facility] Eosinophil % 0.8 0.0 - 7.0 % 02/21/2025 11:08 PM CDT [facility] Basophil % 0.3 0.0 - 1.6 % 02/21/2025 11:08 PM [facility] Immature Granulocytes % 1.3(H) 0.0 - 1.0 % 02/21/2025 11:08 PM T [facility] Neutrophil Absolute 6.74 1.60 - 7.50 x10E9/L 02/21/2025 11:08 PM CDT [facility] Lymphocyte Absolute 2.67 1.00 - 4.40 x10E9/L 02/21/2025 11:08 PM [facility] Monocyte Absolute 0.71 0.15 - 1.00 x10E9/L 02/21/2025 11:08 PM [facility] Eosinophil Absolute 0.08 0.00 - 0.60 x10E9/L 02/21/2025 11:08 PM [facility] Basophil Absolute 0.03 0.00 - 0.13 x10E9/L 02/21/2025 11:08 PM [facility] Blood BLOOD SPECIMEN / Unknown Venipuncture / Unknown 02/21/2025 10:21 PM CDT 02/21/2025 11:05 PM CDT us César Patterson MD LAB - HEMATOLOGY ORDERABLES Fi nal Result [facility] [address] [place] [address] from Last 3 Months Insurance [employer] [facility] SELF PAY NO INSURANCE Member Subscriber Plan / Payer (Ef fective for All Dates) Name:Yaneth Spicer Member ID:Not on file Relation to Subscriber:Not on file Name:DANNIELLEYANETH Subscriber ID:Not on file (Home) Address: [address] [place] [address] Payer ID:Not on file Group ID:Not on file Type:Self Pay Address: [place], [place] [facility] * Guarantor: Yaneth Spicer Account Type Relation to Patient Date of Phone Billing Address Personal/Family Spouse Advance Directives * Full Code (Latest Code Status on File) Date Activated Date Inactivated Comments 02/21/2025 10:50 PM 02/22/2025 2:53 PM
--- OUTSIDE RECORDS SUMMARY | 2025-05-12 08:07 | XMS_ITS | Patient Health Record ---
Author Organization [facility] Address [address] [facility] [address] [place] [address] Care Team Providers Care Director Automotive Name Role Phone MODESTO SHIELA Primary Care Provider Unavailab radha Farhan Emery Unavailable [phone] Allergies No Known Allergies Results Component Value Reference Range Notes TSH Reviewed date:09/28/2024 04:32:55 PM Interpretation:change to 137 mcg Performing Lab: Notes/Report: change to 137 mcg TSH, 5.330 TSH Reviewed date:04/30/2025 08:52:54 AM Interpretation:0.015 Performing Lab: Notes/Report: 0.015 TSH 0.015 T4, FREE Reviewed date:04/26/2025 11:09:57 AM Interpretation:Normal Performing Lab: Notes/Report: Normal T4,Free(Direct) 1.58 THYROGLOBULIN ANTIBODIES Reviewed date:04/28/2025 09:00:58 AM Interpretation:Normal Performing Lab: Notes/Report: Normal THYROGLOBULIN ANTIBODIES <1.0 TSH Reviewed date:01/11/2025 11:22:57 AM Interpretation:Normal Performing Lab: Notes/Report: Normal TSH, 0.864 TSH Reviewed date:12/01/2024 03:58:01 PM Interpretation:Normal Performing Lab: Notes/Report: Normal TSH, 2.150 TSH Reviewed date:08/27/2024 12:44:18 PM Interpretation:Normal Performing [...] W/U Status Risk Notes Problem Postsurgical hypothyroidism (00284765) Postsurgical hypothyroidism (E89.0) Active confirmed Problem Malignant neoplasm of thyroid gland (110393845) Malignant neoplasm of thyroid gland (C73) Active confirmed Vital Signs Respiratory Rate 18 /min 04/30/2025 Blood pressure diastolic 66 mm Hg 04/30/2025 Height 62 in 04/30/2025 Blood pressure systolic 114 mm Hg 04/30/2025 Weight 151.8 lbs 04/30/2025 BMI 27.76 kg/m2 04/30/2025 Encounters Encounter Location Date Provider Diagnosis [address] [address] 04/30/2025 [facility] Postsurgical hypothyroidism E89.0 ; Malignant neoplasm of thyroid gland C73 and BMI 27.0-27.9,adult Z68.[address] [address] 05/03/2025 [place] [address] [place] [address] 07/26/[address] [address] 08/27/[address] [address] 09/28/2024 [facility] Postsurgical hypothyroidism E89.[address] [address] 10/28/[address] [place] [address] 11/26/2024 Farhan Emery [facility] [address] [facility] [address] [place] [address] 12/22/2024 Farhan Emery Postsurgical hypothyroidism E89.0 [facility] [address] [place] [address] 01/11/2025 Farhan Emery [facility] [address] [facility] [address] [place] [address] 02/16/2025 Farhan Emery Assessments Encounter Date Diagnosis [...] RX, Apr 2019, Apr 2020 with in [facility] May 2018: Thyroglobulin < 0.7, Ab wnl Jun 2019:Thyroglobuli n 0.2 unstimulated Mar 2020: Thyroglobulin 5.8 stimulated level (with high TSH) at [facility], So, PT received third BAKER Rx TSH goal < 0.1 till Apr 2025 04/30/2025 BMI 27.0-27.9,adult (ICD-10 - Z68.27) Plan Of Treatment Pending Test Test Name Order Date TSH 10/26/2022 Thyroglobulin Quantitative and Antibody 05/21/2018 Next Appt Details Provider Name:Farhan Emery, 08/13/2025 08:30:00 AM, [address], [address], [place], [address], Insurance Providers Payer Name Payer Address Payer Phone Subscriber Number Group Number Insured Name Patient Relationship to Insured Coverage Start Date Coverage End Date [employer] [address] [place] [address] [id number] MERE BERGER Child - Insured does not [...]
--- OUTSIDE RECORDS SUMMARY | 2025-05-12 08:07 | XMS_ITS ---
Author Organization Unknown Address [address] [place] [phone] Phone Care Team Providers Care Life Consultant Name Role Phone DARLIN EDMONDSON Attending Unavailable [...]
[2025-05-12 08:15] LABS: Schistocytes None Seen
[2025-05-12 08:16] LABS: Ovalocytes Occasional
--- NOTE | 2025-05-12 08:38 | ED_ITS ---
HPI - General Adult General Chief complaint: Vaginal Bleeding Stated complaint: w/ complications 9 weeks ago, vag bleed Time Seen by Provider: 05/12/25 07:48 History of Present Illness HPI narrative: This is a presenting 9 weeks from a with vaginal bleeding. Patient says she has been having spotting since the but today had a large gush of blood. Has been soaking through multiple menstrual pads. She has had some slight abdominal cramping. She denies fevers chills chest pain difficulty breathing. She denies lightheadedness or dizziness. Related Data Home Medications ?Medication ?Instructions ?Recorded ?Confirmed ?Last Taken ?Type prenat.vits,tobias,xql-cfbo-ycsag 1 tablet PO DAILY 07/0603/11/25 03/11/25 History levothyroxine 150 mcg tablet 150 mcg PO DAILY 12/30/24 03/11/25 03/11/25 History Allergies Allergy/AdvReac Type Severity Reaction Status Date / Time No Known Allergies Allergy Verified 05/12/25 07:43 [facility] Past Medical History Medical History (Updated 05/12/25 @ 12:52 by Jorge Rodriguez MD) Suppression of menses Encounter for removal of intrauterine contraceptive device Encounter for initial insertion of intrauterine contraceptive device Thyroid cancer Surgical History Surgical History (Updated 04/15/25 @ 09:17 by Polly Bucio CMA) History of delivery H/O dilation and curettage H/O gynecological procedure Mirena IUD insertion 01/17/23 Mirena IUD removal 12/24/23 History of ankle surgery H/O thyroidectomy Family History Family History Other Breast cancer Factor 5 Leiden mutation, heterozygous Other Cerebrovascular accident Heart disease Social History Social History Smoking status: Former smoker Alcohol intake: current Alcohol use details: socially Substance use: never Substance use type: does not use Lack of Transportation: No Lack of Food: Never True Current Housing: I Have Housing Concerned About Future Housing: No Difficulty Paying Gas/Electric Bills: No Difficulty Paying for Meds: No Currently Unemployed: No Education: Associate Degree Difficulty w/ Childcare or Family Care: No Living arrangements: with family Additional living arrangements comments: Occupation/Education: occupation 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 Head: atraumatic. EYES: EOMI, NOSE: Atraumatic NECK: Trachea midline RESPIRATORY: No increased rate of breathing clear to auscultation CARDIOVASCULAR: RRR, no peripheral edema ABDOMINAL: Non-distended soft nontender MUSCULOSKELETAl: No obvious deformities NEURO: Alert. Moving 4/4 extremities SKIN:: Warm, dry. Normal color PSYCHIATRIC: Normal affect Course Vital Signs Vital signs: Vital Signs Temperature 97.6 F 05/12/25 07:36 Pulse Rate 113 H 05/12/25 07:36 Respiratory Rate 16 05/12/25 07:36 Blood Pressure 119/75 05/12/25 07:36 Pulse Oximetry 100 05/12/25 07:36 Oxygen Delivery Room Air 05/12/25 07:36 Temperature 97.6 F 05/12/25 07:36 Pulse Rate 83 05/12/25 11:01 Respiratory Rate 23 H 05/12/25 11:01 Blood Pressure 109/68 05/12/25 11:01 Pulse Oximetry 99 05/12/25 11:01 Oxygen Delivery Room Air 05/12/25 07:36 Medical Decision Making [facility] Narrative Medical decision making narrative: -Course: 29-year-old female presenting with vaginal bleeding 9 weeks after her . CT abdomen pelvis did not show any acute findings. Patient's hemoglobin is stable. She was tachycardic on arrival although that resolved with no intervention. On arrival patient was cleaned and a fresh pad was put on. Patient has continued to have some mild bleeding but not nearly as significant as when she had overnight that prompted her come to the emergency room. Pelvic exam revealed very mild bleeding at the cervical os but no other acute acute findings. Hemoglobin is 13.3. Patient is comfortable being discharged home and return following up with Dr. Marroquin. If she develops bleeding, abdominal pain or lightheaded dizziness she will return to the ED for re-evaluation. -DDX includes but is not limited to: lochia, resumption of menses, dysfunctional uterine bleeding Vital Signs Vital Signs: Vital Signs Temperature 97.6 F 05/12/25 07:36 Pulse Rate 113 H 05/12/25 07:36 Respiratory Rate 16 05/12/25 07:36 Blood Pressure 119/75 05/12/25 07:36 Pulse Oximetry 100 05/12/25 07:36 Oxygen Delivery Room Air 05/12/25 07:36 Temperature 97.6 F 05/12/25 07:36 Pulse Rate 83 05/12/25 11:01 Respiratory Rate 23 H 05/12/25 11:01 Blood Pressure 109/68 05/12/25 11:01 Pulse Oximetry 99 05/12/25 11:01 Oxygen Delivery Room Air 05/12/25 07:36 Lab Data 05/12/25 07:44 05/12/25 07:44 Labs: Lab Results 05/12/25 05/12/25 05/12/25 Range/Units 07:44 08:53 09:04 WBC 9.3 (4.5-10.0) K/mm3 RBC 4.92 (4.2-5.4) M/mm3 Hgb 13.3 D (12.0-15.0) g/dL Hct 42.0 (37.0-47.0) % MCV 85.4 (80-100) fl MCH 27.0 (26-34) pg MCHC 31.7 L (32-36) g/dl RDW 13.2 (11.5-14.5) % Plt Count 225 (150-375) k/mm3 MPV 10.2 (7.4-10.4) fl Immature Gran % (Auto) 0.2 (0-0.5) % Neut % (Auto) 30.6 L (45.5-73.1) % Lymph % (Auto) 59.3 H (18.3-44.2) % [place] % (Auto) 8.5 (2.6-8.5) % Eos % (Auto) 0.6 (0-4.4) % Baso % (Auto) 0.8 (0.2-1.2) % Lymph # (Auto) 5.53 H (0.9-3.2) K/mm3 [place] # (Auto) 0.8 H (0.1-0.6) K/mm3 Eos # (Auto) 0.1 (0-0.3) K/mm3 Baso # (Auto) 0.1 (0.0-0.1) K/mm3 Abs Immat Gran (auto) 0.02 (0.00-0.031) K/mm3 Absolute Neuts (auto) 2.9 (1.3-6.7) K/mm3 Absolute Nucleated RBC 0.000 (0.0-0.012) K/mm3 Band Neutrophils % Not Reportable Nucleated RBC % 0.0 (0.0-0.2) % Atypical Lymphocytes Present Platelet Estimate Adequate (Adequate) Ovalocytes Occasional Schistocytes None seen Sodium 139 (137-145) mmol/L Potassium 4.0 (3.4-5.0) mmol/L Chloride 107 (98-107) mmol/L Carbon Dioxide 23 (22-30) mmol/L Anion Gap 9 (4-12) mmol/L BUN 16 (7-17) mg/dL Creatinine 0.80 (0.7-1.0) mg/dL Estim Creat Clear Calc 82 ml/min Estimated GFR > 60 (59 - ) Glucose 99 (65-110) mg/dL Calcium 9.0 (8.4-10.2) mg/dL Total Bilirubin 0.3 (0.2-1.3) mg/dL AST 37 H (14-36) U/L ALT 34 (6-35) U/L Alkaline Phosphatase 86 (38-126) U/L Total Protein 8.3 H (6.3-8.2) g/dL Albumin 4.6 (3.5-5.1) g/dL Urine Color Yellow (Yellow) Urine Appearance Clear (Clear) Urine pH 6.5 (5.0-9.0) Ur Specific [place] 1.013 (1.001-1.035) Urine Protein Negative (Negative) mg/dL Urine Glucose (UA) Negative (Negative) mg/dL Urine Ketones Negative (Negative) mg/dL Ur Blood (Man) 2+ H (Negative) Urine Nitrate Negative (Negative) Urine Bilirubin Negative (Negative) Urine Urobilinogen 0.2 (<2.0) mg/dL Leukocyte Esterase Rfl Negative (Negative) HAIDER/UL Urine RBC 51-100 H (0-2) /hpf Urine WBC 0-5 (0-3) /hpf Ur Squamous Epith Cells None seen (Few) /hpf Urine Bacteria None seen /hpf Urine Casts 0-2 Urine Test Negative Discharge Plan Discharge Clinical Impression: Vaginal bleeding Patient Disposition: Home Condition: Stable Instructions: Antibiotic Form, Abnormal (Dysfunctional) Uterine Bleeding (ED) Additional Instructions: Please follow-up with your OBGYN early next week. If you develop any new symptoms such as significant vaginal bleeding, abdominal pain lightheadedness or dizziness/fainting please return ED for re-evaluation. Patient Language: Sami Prescriptions: No Action prenat.vits,tobias,[id number]-ggle-wdfqs Tablet 1 tablet PO DAILY levothyroxine 150 mcg tablet 150 mcg PO DAILY Follow-up/Referrals: Jaime Marroquin MD [Primary Care Provider, LEGAL RECOVERY SPECIALIST] - 3 Days
[2025-05-12 08:52] LABS: Alanine Aminotransferase 34 U/L (6-35); Albumin Level 4.6 g/dL (3.5-5.1); Alkaline Phosphatase 86 U/L (38-126); Anion Gap 9 mmol/L (4-12); Aspartate Amino Transferase 37 U/L (14-36); Bilirubin,Total 0.3 mg/dL (0.2-1.3); Blood Urea Nitrogen 16 mg/dL (7-17); Calcium 9.0 mg/dL (8.4-10.2); Carbon Dioxide 23 mmol/L (22-30); Chloride 107 mmol/L (98-107); Estimated CRCL calculation 82 ml/min; Estimated Glomerular Filt Rate > 60; Glucose 99 mg/dL (65-110); Potassium 4.0 mmol/L (3.4-5.0); Sodium 139 mmol/L (137-145); Total Protein 8.3 g/dL (6.3-8.2)
[2025-05-12 09:09] LABS: Add Urine Microscopic? YES; Appearance Urine Clear (Clear); Glucose Urine UA Negative (Negative); Leukocyte Esterase Ur Negative LEU/UL (Negative); Nitrate Urine Negative (Negative); Non Pathogenic Casts 0-2; Specific Grav Ur 1.013 (1.001-1.035)
[2025-05-12 09:14] LABS: Pregnancy On Board Control Positive
== END 2025-05-12 12:58 | disposition home or self-care (01) ==
PROVIDERS: Emergency Provider Emergency Medicine; PCP Student in an Organized Health Care Education/Training Program
DX: N93.9 Abnormal uterine and vaginal bleeding, unspecified (principal); E89.0 Postprocedural hypothyroidism; Z85.850 Personal history of malignant neoplasm of thyroid; Z87.891 Personal history of nicotine dependence
CPT/HCPCS: 36415; 74177; 80053; 81001; 81025; 85025; 99284; Q9967